=== PATIENT | female | born 1935 | race Caucasian/White ===

== ENCOUNTER 2016-09-14 16:15 | Observation (INO) ==
--- NOTE | 2016-09-14 17:07 | Emergency Department Note ---
Disposition Clinical Impression: Acute exacerbation of chronic obstructive pulmonary disease (COPD) Disposition: Admitted As Inpatient Condition: Good General Adult HPI - General Chief complaint: ED Shortness of Breath/Dyspnea Stated complaint: CARIDAD Time Seen by Provider: 09/14/16 17:01 Source: patient Limitations: no limitations - History of Present Illness Pain Scale: 0 - Related Data Home Medications Medication Instructions Recorded Confirmed Acetaminophen [Tylenol Arthritis] 1,300 mg PO HS 09/14/16 09/14/16 Aspirin 81 mg PO DAILY 09/14/16 09/14/16 Cyanocobalamin (Vitamin B-12) 100 mcg PO DAILY 09/14/16 09/14/16 [Vitamin B-12] Diltiazem HCl [Diltiazem 24Hr Cd] 240 mg PO DAILY 09/14/16 09/14/16 Fluticasone Propionate Nasal 50 mcg NS BID 09/14/16 09/14/16 [Flonase] Ginseng 100 mg PO DAILY 09/14/16 09/14/16 Isosorbide MONOnitrate (24 HR) 60 mg PO DAILY 09/14/16 09/14/16 [Imdur] LORazepam [Ativan] 0.5 mg PO BID PRN 09/14/16 09/14/16 Loratadine [Claritin] 10 mg PO DAILY 09/14/16 09/14/16 Meloxicam [Mobic] 7.5 mg PO DAILY 09/14/16 09/14/16 Metoprolol XL (24 HR) Succ [Toprol 50 mg PO DAILY 09/14/16 09/14/16 XL] Nitroglycerin 0.4 mg SL Q5MIN PRN 09/14/16 09/14/16 Omeprazole [PriLOSEC] 20 mg PO DAILY 09/14/16 09/14/16 Oxybutynin Chloride [Ditropan Xl] 10 mg PO DAILY 09/14/16 09/14/16 Saline Nasal [place] [[place] Nasal 2 spray NS BID 09/14/16 09/14/16 [place]] Triamterene/HCTZ 37.5/25mg 1 each PO DAILY 09/14/16 09/14/16 [Dyazide] Allergies Allergy/AdvReac Type Severity Reaction Status Date / Time No Known Allergies Allergy Verified 09/14/16 16:17 Past Medical History - Past Medical History Medical history: Reports: coronary artery disease, hypertension, myocardial infarction Psychiatric history: Reports: no psych history - Social History Smoking Status: Former smoker Alcohol use: Reports: none Drug use: Reports: none Physical Exam - General Limitations: no limitations General appearance: alert, in no apparent distress Course Vital Signs Temperature 97.8 F 09/14/16 16:17 Pulse Rate 92 09/14/16 16:17 Respiratory Rate 15 09/14/16 16:17 Blood Pressure 226/102 09/14/16 16:17 O2 Sat by Pulse Oximetry 94 L 09/14/16 16:17 Temperature 98.3 F 09/14/16 20:27 Pulse Rate 91 09/14/16 20:27 Respiratory Rate 16 09/14/16 20:27 Blood Pressure 177/89 09/14/16 20:27 O2 Sat by Pulse Oximetry 94 L 09/14/16 20:27 Oxygen Delivery Oxygen Delivery Nasal Cannula Medical Decision Making - Lab Data Result diagrams: 09/14/16 18:21 09/14/16 18:21 Lab Results 09/14/16 09/14/16 09/14/16 Range/Units 18:21 18:21 18:21 WBC 13.6 H (4.3-11.1) K/mcL RBC 4.66 (3.82-4.97) M/mcL Hgb 13.6 (11.5-15.4) g/dL Hct 41.1 (35.3-44.9) % MCV 88.2 (83.0-100.0) fL MCH 29.2 (28.0-33.3) pg MCHC 33.1 (31.6-35.5) g/dL RDW 13.0 (11.5-14.5) % Plt Count 291 (140-400) K/mcL MPV 9.6 (9.4-12.4) fL Immature Gran % 0.6 (0-4) % Seg Neutrophils % 68.8 % Lymphocytes % 25.6 % Monocytes % 4.2 % Eosinophils % 0.4 % Basophils % 0.4 % Neutrophils # 9.4 H (1.6-8.9) K/mcL Lymphocytes # 3.5 (0.6-4.6) K/mcL Monocytes # 0.6 (0.0-1.3) K/mcL Eosinophils # 0.1 (0.0-0.6) K/mcL Basophils # 0.1 (0.0-0.2) K/mcL Sodium 137 (136-145) mEq/L Potassium 3.4 L (3.5-4.5) mEq/L Chloride 97 L (98-109) mEq/L Carbon Dioxide 27 (19-29) mEq/L BUN 19 (7-20) mg/dL Creatinine 0.82 (0.57-1.11) mg/dL Est GFR ( Amer) > 60 (> 60) Est GFR (Non-Af Amer) > 60 (> 60) BUN/Creatinine Ratio 23 (6-26) Glucose 110 H (70-99) mg/dL Calculated Osmolality 287 (280-300) Calcium 10.0 (8.6-10.8) mg/dL Troponin I (0-0.03) ng/mL B-Natriuretic Peptide 186 H (0-100) pg/mL 09/14/16 Range/Units 18:24 WBC (4.3-11.1) K/mcL RBC (3.82-4.97) M/mcL Hgb (11.5-15.4) g/dL Hct (35.3-44.9) % MCV (83.0-100.0) fL MCH (28.0-33.3) pg MCHC (31.6-35.5) g/dL RDW (11.5-14.5) % Plt Count (140-400) K/mcL MPV (9.4-12.4) fL Immature Gran % (0-4) % Seg Neutrophils % % Lymphocytes % % Monocytes % % Eosinophils % % Basophils % % Neutrophils # (1.6-8.9) K/mcL Lymphocytes # (0.6-4.6) K/mcL Monocytes # (0.0-1.3) K/mcL Eosinophils # (0.0-0.6) K/mcL Basophils # (0.0-0.2) K/mcL Sodium (136-145) mEq/L Potassium (3.5-4.5) mEq/L Chloride (98-109) mEq/L Carbon Dioxide (19-29) mEq/L BUN (7-20) mg/dL Creatinine (0.57-1.11) mg/dL Est GFR ( Amer) (> 60) Est GFR (Non-Af Amer) (> 60) BUN/Creatinine Ratio (6-26) Glucose (70-99) mg/dL Calculated Osmolality (280-300) Calcium (8.6-10.8) mg/dL Troponin I 0.02 (0-0.03) ng/mL B-Natriuretic Peptide (0-100) pg/mL Attestation Statement - Attestation Attestation: I examined this patient and my medical decision-making was reviewed with the [facility]/PA/Advanced Practice Nurse/Resident Physician. I agree with the documented findings, disposition and treatment plan as described except to the extent set forth below. [id number] time provided Patient complains of dyspnea. Chest congestion audible on exam. She does admit to a cough. Pulse ox 85% on room air. Plan of care and management discussed by me with the resident physician
[2016-09-14] MEDS ORDERED: Ipratropium/Albuterol Neb 3 ML IH ONE (17:13)
--- NOTE | 2016-09-14 17:51 | Emergency Department Note ---
Disposition Clinical Impression: Acute exacerbation of chronic obstructive pulmonary disease (COPD) Disposition: Admitted As Inpatient Condition: Good SOB HPI - General Chief Complaint: ED Shortness of Breath/Dyspnea Stated Complaint: CARIDAD Time Seen by Provider: 09/14/16 17:01 Source: patient Limitations: no limitations Nursing Notes Reviewed: Yes Vital Signs Reviewed: Yes - History of Present Illness Ms. Mendiola, an 81yo female, presents from home by POV with chief complaint difficulty breathing. Onset in June and persistent. Patient states that she has been diagnosed with a viral upper restaurant infection, bronchitis, sinusitis and managed accordingly with no improvement in her symptoms. Patient denies formal history of COPD or asthma. Remote history of smoking tobacco stating that she quit 20 years ago. 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 Denies use of supplemental oxygen, at home nebulizers, or at home inhalers. PMH: Hypertension. Unknown status of CHF. Denies history of COPD. Admits: Persistent cough, difficulty breathing. Denies: Fever, chills, nausea, vomiting, chest pain, palpitations, abdominal pain, headache, generalized or focal weakness/numbness/tingling. - Related Data Home Medications Medication Instructions Recorded Confirmed Acetaminophen [Tylenol Arthritis] 1,300 mg PO HS 09/14/16 09/14/16 Aspirin 81 mg PO DAILY 09/14/16 09/14/16 Cyanocobalamin (Vitamin B-12) 100 mcg PO DAILY 09/14/16 09/14/16 [Vitamin B-12] Diltiazem HCl [Diltiazem 24Hr Cd] 240 mg PO DAILY 09/14/16 09/14/16 Fluticasone Propionate Nasal 50 mcg NS BID 09/14/16 09/14/16 [Flonase] Ginseng 100 mg PO DAILY 09/14/16 09/14/16 Isosorbide MONOnitrate (24 HR) 60 mg PO DAILY 09/14/16 09/14/16 [Imdur] LORazepam [Ativan] 0.5 mg PO BID PRN 09/14/16 09/14/16 Loratadine [Claritin] 10 mg PO DAILY 09/14/16 09/14/16 Meloxicam [Mobic] 7.5 mg PO DAILY 09/14/16 09/14/16 Metoprolol XL (24 HR) Succ [Toprol 50 mg PO DAILY 09/14/16 09/14/16 XL] Nitroglycerin 0.4 mg SL Q5MIN PRN 09/14/16 09/14/16 Omeprazole [PriLOSEC] 20 mg PO DAILY 09/14/16 09/14/16 Oxybutynin Chloride [Ditropan Xl] 10 mg PO DAILY 09/14/16 09/14/16 Saline Nasal [place] [[place] Nasal 2 spray NS BID 09/14/16 09/14/16 [place]] Triamterene/HCTZ 37.5/25mg 1 each PO DAILY 09/14/16 09/14/16 [Dyazide] Allergies Allergy/AdvReac Type Severity Reaction Status Date / Time No Known Allergies Allergy Verified 09/14/16 16:17 All systems ED: reviewed and negative except as stated. (as per history of present illness) Past Medical History - Past Medical History Medical history: Reports: coronary artery disease, hypertension, myocardial infarction Psychiatric history: Reports: no psych history - Social History Smoking Status: Former smoker Alcohol use: Reports: none Drug use: Reports: none Physical Exam General: Patient is alert, oriented, and in no acute distress. HEENT: No facial asymmetry. Head is normocephalic and atraumatic. Trachea midline. Cardiovascular: Heart regular rate and rhythm without clicks, rubs, gallops, or murmurs. No JVD. PMI nondisplaced. Respiratory: Symmetric chest rise with poor respiratory effort. Bilateral breath sounds have diffuse rhonchi bilaterally from apex to base in posterior wagner. Abdomen: Bowel sounds present normoactive x-4 quadrants. Abdomen is soft, nondistended, and nontender. Psych: Patient's affect is appropriate for situation. - General Limitations: no limitations General appearance: alert, in no apparent distress Course Course Narrative: On auscultation, patient's lung sounds are coarse with crackles. Concern is for pulmonary edema versus pneumonia versus exacerbation of COPD. Chart check does not show any recent cardiology reports. 18:38 Patient remains hypertensive. On initial interview, she was hypertensive and asymptomatic. She now complains of headache. Will give IV dose labetalol 10 mg. Patient's lab work and imaging has returned. Imaging is not concerning for pneumonia. BNP is very mildly elevated at 186. Patient has a mild leukocytosis. After discussing with the patient and the daughter bedside, the patient is proven to us that she is unable to manage an outpatient basis as her symptoms have unresolved and worsening for the past 3 months. We will page the hospitalist for admission for a new diagnosis of COPD for which the patient is currently in an acute exacerbation. Patient is now on 4 L of oxygen satting at 94-95%. On 3 L nasal cannula she was 89-90%. Note: At baseline, patient requires no supplemental oxygen. 19:[address] Alcala, hospitalist [place] [facility]. He agrees to accept the patient. Admitting diagnosis: AE COPD. COPD has not been previously diagnosed in this patinent. Vital Signs Temperature 97.8 F 09/14/16 16:17 Pulse Rate 92 09/14/16 16:17 Respiratory Rate 15 09/14/16 16:17 Blood Pressure 226/102 09/14/16 16:17 O2 Sat by Pulse Oximetry 94 L 09/14/16 16:17 Temperature 97.8 F 09/14/16 16:17 Pulse Rate 91 09/14/16 18:56 Respiratory Rate 22 09/14/16 20:10 Blood Pressure 184/86 09/14/16 20:10 O2 Sat by Pulse Oximetry 93 L 09/14/16 18:56 Oxygen Delivery Oxygen Delivery Nasal Cannula Shortness of Breath/Dyspnea - Lab Data Result diagrams: 09/14/16 18:21 09/14/16 18:21 Lab Results 09/14/16 09/14/16 09/14/16 Range/Units 18:21 18:21 18:21 WBC 13.6 H (4.3-11.1) K/mcL RBC 4.66 (3.82-4.97) M/mcL Hgb 13.6 (11.5-15.4) g/dL Hct 41.1 (35.3-44.9) % MCV 88.2 (83.0-100.0) fL MCH 29.2 (28.0-33.3) pg MCHC 33.1 (31.6-35.5) g/dL RDW 13.0 (11.5-14.5) % Plt Count 291 (140-400) K/mcL MPV 9.6 (9.4-12.4) fL Immature Gran % 0.6 (0-4) % Seg Neutrophils % 68.8 % Lymphocytes % 25.6 % Monocytes % 4.2 % Eosinophils % 0.4 % Basophils % 0.4 % Neutrophils # 9.4 H (1.6-8.9) K/mcL Lymphocytes # 3.5 (0.6-4.6) K/mcL Monocytes # 0.6 (0.0-1.3) K/mcL Eosinophils # 0.1 (0.0-0.6) K/mcL Basophils # 0.1 (0.0-0.2) K/mcL Sodium 137 (136-145) mEq/L Potassium 3.4 L (3.5-4.5) mEq/L Chloride 97 L (98-109) mEq/L Carbon Dioxide 27 (19-29) mEq/L BUN 19 (7-20) mg/dL Creatinine 0.82 (0.57-1.11) mg/dL Est GFR ( Amer) > 60 (> 60) Est GFR (Non-Af Amer) > 60 (> 60) BUN/Creatinine Ratio 23 (6-26) Glucose 110 H (70-99) mg/dL Calculated Osmolality 287 (280-300) Calcium 10.0 (8.6-10.8) mg/dL Troponin I (0-0.03) ng/mL B-Natriuretic Peptide 186 H (0-100) pg/mL 09/14/16 Range/Units 18:24 WBC (4.3-11.1) K/mcL RBC (3.82-4.97) M/mcL Hgb (11.5-15.4) g/dL Hct (35.3-44.9) % MCV (83.0-100.0) fL MCH (28.0-33.3) pg MCHC (31.6-35.5) g/dL RDW (11.5-14.5) % Plt Count (140-400) K/mcL MPV (9.4-12.4) fL Immature Gran % (0-4) % Seg Neutrophils % % Lymphocytes % % Monocytes % % Eosinophils % % Basophils % % Neutrophils # (1.6-8.9) K/mcL Lymphocytes # (0.6-4.6) K/mcL Monocytes # (0.0-1.3) K/mcL Eosinophils # (0.0-0.6) K/mcL Basophils # (0.0-0.2) K/mcL Sodium (136-145) mEq/L Potassium (3.5-4.5) mEq/L Chloride (98-109) mEq/L Carbon Dioxide (19-29) mEq/L BUN (7-20) mg/dL Creatinine (0.57-1.11) mg/dL Est GFR ( Amer) (> 60) Est GFR (Non-Af Amer) (> 60) BUN/Creatinine Ratio (6-26) Glucose (70-99) mg/dL Calculated Osmolality (280-300) Calcium (8.6-10.8) mg/dL Troponin I 0.02 (0-0.03) ng/mL B-Natriuretic Peptide (0-100) pg/mL - EKG Data EKG attestation: Yes I reviewed and interpreted this EKG. EKG results narrative: EKG dated 09/14/16 at 17:41 shows sinus rhythm with a rate of 79. Nonspecific ST -T changes. Normal intervals. Normal axis. Rare PVCs. Compared to previous EKG dated 08/15/2014 showing sinus bradycardia; no acute ischemic changes comparison. EKG gated 2016 at 18:04 shows sinus rhythm with occasional PVCs with subsequent compensatory positive. Rate of 88. Normal intervals. Normal axis. PVCs are new finding is a not evident on previous EKG dated 08/15/2014.
[2016-09-14] MEDS ORDERED: *HR* Labetalol 20 MG/4 ML SYRINGE IVP ONE (18:37)
[2016-09-14 18:41] LABS: Basophils # 0.1 K/mcL (0.0-0.2); Basophils % 0.4 %; Eosinophils # 0.1 K/mcL (0.0-0.6); Eosinophils % 0.4 %; Hematocrit 41.1 % (35.3-44.9); Hemoglobin 13.6 g/dL (11.5-15.4); Immature Granulocytes % 0.6 % (0-4); Lymphocytes # 3.5 K/mcL (0.6-4.6); Lymphocytes % 25.6 %; Mean Corpuscular HGB Conc 33.1 g/dL (31.6-35.5); Mean Corpuscular Hemoglobin 29.2 pg (28.0-33.3); Mean Corpuscular Volume 88.2 fL (83.0-100.0); Mean Platelet Volume 9.6 fL (9.4-12.4); Monocytes # 0.6 K/mcL (0.0-1.3); Monocytes % 4.2 %; Neutrophils # 9.4 K/mcL (1.6-8.9); Platelet Count 291 K/mcL (140-400); Red Blood Count 4.66 M/mcL (3.82-4.97); Segmented Neutrophils % 68.8 %
[2016-09-14 18:50] LABS: BUN/Creatinine Ratio 23 (6-26); Blood Urea Nitrogen 19 mg/dL (7-20); Carbon Dioxide 27 mEq/L (19-29); Chloride 97 mEq/L (98-109); Glucose 110 mg/dL (70-99); Osmolality,Calculated 287 (280-300); Potassium 3.4 mEq/L (3.5-4.5); Sodium 137 mEq/L (136-145); eGFR For African Americans > 60 (> 60); eGFR For Non-African Americans > 60 (> 60)
[2016-09-14] MEDS ORDERED: Ondansetron 4 MG/2 ML VIAL IVP STA (18:56)
[2016-09-14] MEDS ORDERED: methylPREDNISolone 125 MG/2 ML VIAL IVP ONE (19:02)
[2016-09-14] MEDS: Isosorbide MONOnitrate (24 HR) 60 MG TAB.ER.24H PO ONE ×2 (20:18→21:26)
[2016-09-14] MEDS: Diltiazem CD (24hr) 240 MG CAPSULE PO ONE ×2 (20:18→21:27)
[2016-09-14] MEDS ORDERED: *HR* LORazepam 0.5 MG TABLET PO PRN (21:15)
[2016-09-14] MEDS ORDERED: Nitroglycerin 0.4 MG TAB.SUBL SL PRN (21:15)
[2016-09-14] MEDS ORDERED: Albuterol 2.5 MG/3 ML NEBULIZER IH PRN (21:17)
[2016-09-14] MEDS ORDERED: Pantoprazole 40 MG VIAL IVP STA (21:17)
[2016-09-14] MEDS ORDERED: Ondansetron 4 MG/2 ML VIAL IVP PRN (21:17)
[2016-09-14] MEDS ORDERED: *HR* Morphine 2 MG/ML SYRINGE IVP PRN (21:17)
[2016-09-14] MEDS ORDERED: Naloxone 0.4 MG/ML INJ IVP PRN (21:17)
[2016-09-14] MEDS ORDERED: *HR* OxyCODONE Immed Rel 5 MG TABLET PO PRN (21:17)
[2016-09-14] MEDS ORDERED: Azithromycin 500 MG in D5% in Water 250 ML IVPB SCH (22:00)
[2016-09-14 22:11] LABS: Magnesium 1.3 mg/dL (1.6-2.6); Phosphorous 2.7 mg/dL (2.3-4.7)
[2016-09-14] MEDS: 0.9 % Sodium Chloride w KCl 20 MEQ/1,000 ML MLS IVC SCH (22:55)
[2016-09-14] MEDS: Ipratropium/Albuterol Neb 3 ML IH SCH (23:32)
[2016-09-15] MEDS: MethylPREDNISolone 40 MG/ML VIAL IVP SCH ×3 (00:07→11:46)
[2016-09-15] MEDS: Ipratropium/Albuterol Neb 3 ML IH SCH ×4 (04:56→22:52)
[2016-09-15] MEDS: Acetylcysteine 10% 2 ML INHSOL IH SCH ×3 (04:56→22:52)
[2016-09-15 05:09] LABS: Hematocrit 35.5 % (35.3-44.9); Mean Corpuscular HGB Conc 33.8 g/dL (31.6-35.5); Mean Corpuscular Hemoglobin 29.9 pg (28.0-33.3); Mean Corpuscular Volume 88.5 fL (83.0-100.0); Platelet Count 268 K/mcL (140-400); Red Blood Count 4.01 M/mcL (3.82-4.97)
[2016-09-15 05:24] LABS: INR 1.1; Prothrombin Time 11.8 Seconds (9.4-12.1)
[2016-09-15 05:31] LABS: Alanine Aminotransferase 16 Units/L (0-55); Albumin 3.3 g/dL (3.5-5.0); Albumin/Globulin Ratio 0.9 (1.1-2.2); Alkaline Phosphatase 78 Units/L (38-126); Aspartate Amino Transferase 18 Units/L (5-34); BUN/Creatinine Ratio 20 (6-26); Bilirubin,Total 0.5 mg/dL (0.2-1.2); Blood Urea Nitrogen 20 mg/dL (7-20); Calcium 9.6 mg/dL (8.6-10.8); Carbon Dioxide 26 mEq/L (19-29); Chloride 94 mEq/L (98-109); Chol/HDL Ratio 3.5 (0-4.9); Cholesterol 164 mg/dL (< 200); Globulin 3.5 g/dL (2.4-3.5); Glucose 183 mg/dL (70-99); HDL Cholesterol 47 mg/dL (40-59); LDL Cholesterol,Calculated 100 mg/dL (0-99); Osmolality,Calculated 281 (280-300); Potassium 3.4 mEq/L (3.5-4.5); Sodium 132 mEq/L (136-145); Total Protein 6.8 g/dL (6.0-8.3); Triglycerides 87 mg/dL (< 150); eGFR For African Americans > 60 (> 60); eGFR For Non-African Americans 54 (> 60)
--- NOTE | 2016-09-15 08:14 | Internal Med History&Physical ---
Date of Encounter: 09/14/16 Time of Encounter: 21:00 Assessment and Plan (1) Acute on chronic respiratory failure with hypoxia Status: Acute . (2) Acute exacerbation of chronic obstructive pulmonary disease (COPD) Status: Acute . (3) SIRS (systemic inflammatory response syndrome) Status: Acute . Internal Medicine - H&P: HPI Chief complaint: Difficulty breathing Admitted From: Emergency Dept Plans for Post Hospital Care: Home History of present illness: Ms. Mendiola is a 81 year old female with history significant for DJD/ osteoarthritis, osteopenia, hypertension, dyslipidemia, GERD, diastolic CHF/ LVEF 65%, CAD/AMI, pulm HTN, TO, allergic rhinitis, COPD, obesity, former smoker. The patient was visited and interviewed and examined. Patient is admitted to [facility]. The emergency department when she presents with reports of persisting difficulty in breathing. Onset of symptoms began in June and seemed to persist point forward. She had been diagnosed with a viral upper respiratory tract infection, bronchitis, sinusitis, etc. and in spite of management provided for each diagnosis no internal improvement in her symptoms was achieved. She does not possess to her knowledge of formal diagnosis of COPD or asthma. She has a very remote history of smoking tobacco which she discontinued 20 years ago. She does have seasonal allergies. She has lived in a smoking household. She denies any overt fevers chills night sweats nausea vomiting diarrhea chest pain palpitations and headache focal weakness or numbness paresthesias or rash. Findings in the ED: Temperature 97.8 pulse 92 respirations 16-22 BP 184-226/86- 102. O2 saturation 94% on room air. WBC 13.6 hemoglobin 13.6 platelets 291, 000. Differential showed an increase in neutrophils. Metabolic panel showed a potassium of 3.4 chloride 97. BUN 19 creatinine 0.8. Glucose 110 osmolality 297. Troponin 0.0 BNP 186. Chest x-ray demonstrates cardiomegaly and COPD. Increased pulmonary vascular congestion centrally. Suggestive of pulmonary edema. EKG showed sinus rhythm. Rate 79. Nonspecific ST-T wave changes. Rare PVC. No acute ischemic changes. Preliminary impression suggests acute/subacute bronchitis-bronchiolitis. Protracted course may portend to interstitial lung disease/interstitial pneumonitis. Seasonal allergens such as mold and mildew may have aggravated waxing and waning course she describes. Not currently on an POOJA inhibitor as an added feature of induced cough and congestion. Given x-ray suggestion of cardiomegaly and COPD, issues she is not clearly aware exist further investigation will be pursued. Systemic inflammatory response syndrome criteria are met at the time of presentation. Modest metabolic and electrolyte derangements also are apparent. As his chronic significant accelerated blood pressure/hypertensive urgency. Likely reactive. Given cardiomegaly further assessment of valvular status and systolic function will be investigated. The patient is at risk for further acute clinical decline and morbid given this presenting chief complaint, findings and comorbid conditions. Workup and treatment will proceed comprehensibly. Cumulative laboratory and radiographic data base was reviewed, considered and discussed. Pertinent ancillary medical records including ECW and PCI documentation was reviewed and considered. Given the patient's presenting concerns, past medical history, clinical findings and symptoms, she is admitted at this time will undergo further evaluation and disposition. Orders were written as per [employer] physician computerized mill mill recorder system.......................................................................... .................... Consultative opinions will be sought as clinical circumstances justify. Pain management needs will be addressed. Laboratory and radiographic data base will be updated as appropriate. Studies include: Cultures blood urine and sputum, cardiac injury panel, BNP, metabolic and hematologic panel, mag, phos, ion calcium, thyroid panel, lipid profile, A1c , C-pep, CRP sed rate, respiratory infection profile, respiratory virus panel, L and streptococcal pneumonia urine antigen, UA, blood gas, lactic acid, serologies, etc. Precautions: Aspiration, fall, delirium protocol/surveillance initiated. Telemetry with continuous hemodynamic monitoring and pulse oximetry initiated. Empiric antibody coverage: Intravenous Rocephin and azithromycin pending culture data. Special studies: CT/CTA chest, chest x-ray, telemetry, EKG, echocardiogram. Consider Lexiscan myocardial perfusion NM stress test pending review of cumulative test results. Consider complete pulmonary function testing and DLCO assessment. Pulmonary toilet: Incentive spirometry, aerosol bronchodilator, mucolytic, antitussive, supplemental oxygen. Corticosteroid therapy. CPAP/BiPAP supplemental oxygen delivery. Aerosol Mucomyst therapy. Acute heart failure protocol/surveillance initiated. 4438-4665 mL total fluid restriction per 24 hours. No added salt dietary restraint. Fluid and electrolyte repletion efforts will proceed. Careful attention to fluid balance and renal recovery will be emphasized. Avoidance of nephrotoxic exposure and adverse drug drug interaction in the setting of impaired renal function will be monitored closely. Acute coronary syndrome protocol/surveillance initiated. DVT and PUD prophylaxis initiated: PPI therapy, intermittent pneumatic cuffs. Subcutaneous heparin. Early ambulation will be encouraged. Immunization updates recommended. Influenza and pneumococcal vaccinations as part of ongoing preventative healthcare recommendations strongly recommended. Smoking cessation counseling briefly addressed. Patient is a former smoker. Advanced care directive discussion briefly addressed. Patient does not declare any healthcare restrictions at this time. Cardiovascular risk appraisal and cardiovascular risk reduction efforts will be emphasized. Physical /occupational therapy may be consulted to evaluate/assess patient's functional capacity and progress mobility if her circumstances permit. Nutrition/dietary education counseling may be considered as circumstances justify. Outpatient medication schedules will be reviewed, confirmed and facilitated as appropriate. Reconciliation of home treatments including adjustments, substitutions and reintroduction into the treatment regimen will address necessary maintenance therapies for chronic pre-existing medical conditions. Plan of care has been reviewed and discussed in detail with the patient. Questions addressed. Hospital course dictated by clinical findings, treatment response and potential consultative interventions. Patient is at risk for further acute clinical decline due to her advanced age, chief complaints and comorbid conditions. Condition is serious. Prognosis is cautiously optimistic. CODE STATUS is full. Past Med Surg Social Fam HX - Past Medical History Source: old records reviewed Medical history: arthritis, asthma, COPD, coronary artery disease, GERD, hyperlipidemia, hypertension, myocardial infarction, osteoporosis, other Psychiatric history: no psych history - Past Surgical History Surgical History: cholecystectomy, hysterectomy, knee replacement, orthopedic, other (Left total shoulder replacement. Left carpal tunnel surgery. Right foot surgery.), other - Social History Smoking Status: Former smoker Smokeless Tobacco Status: No Alcohol use: none Drug use: none Occupational status: retired Current living situation: With Family Activity Level: Independent ambulation, Mostly sedentary Recent Out of Country Travel Within the Last 8 Weeks: No Exposure or Possible Exposure to Illness During Travel: No - Family History Brother Hx Family Cardiac Disorders: Yes (HTN) Hx Family Endocrine Disorder: Yes (diabetes) Internal Medicine - H&P: Meds Acetaminophen [Tylenol Arthritis] 1,300 mg PO HS 09/14/16 [History] Aspirin 81 mg PO DAILY 09/14/16 [History] Cyanocobalamin (Vitamin B-12) [Vitamin B-12] 100 mcg PO DAILY 09/14/16 [History] Diltiazem HCl [Diltiazem 24Hr Cd] 240 mg PO DAILY 09/14/16 [History] Fluticasone Propionate Nasal [Flonase] 50 mcg NS BID 09/14/16 [History] Ginseng 100 mg PO DAILY 09/14/16 [History] Isosorbide MONOnitrate (24 HR) [Imdur] 60 mg PO DAILY 09/14/16 [History] LORazepam [Ativan] 0.5 mg PO BID PRN 09/14/16 [History] Loratadine [Claritin] 10 mg PO DAILY 09/14/16 [History] Meloxicam [Mobic] 7.5 mg PO DAILY 09/14/16 [History] Metoprolol XL (24 HR) Succ [Toprol Xl] 50 mg PO DAILY 09/14/16 [History] Nitroglycerin 0.4 mg SL Q5MIN PRN 09/14/16 [History] Omeprazole [PriLOSEC] 20 mg PO DAILY 09/14/16 [History] Oxybutynin Chloride [Ditropan Xl] 10 mg PO DAILY 09/14/16 [History] Saline Nasal [place] [[place] Nasal [place]] 2 spray NS BID 09/14/16 [History] Triamterene/HCTZ 37.5/25mg [Dyazide] 1 each PO DAILY 09/14/16 [History] Amoxicillin 875 mg PO BID 5 Days 09/16/16 [Rx] Furosemide [Lasix] 20 mg PO DAILY #30 tablet 09/16/16 [Rx] Potassium Chloride [K-Tab ER] 8 meq PO DAILY #30 tablet.er 09/16/16 [Rx] PredniSONE 10 mg PO DAILY 12 Days 09/16/16 [Rx] Allergies No Known Allergies Allergy (Verified 09/14/16 16:17) All Systems PM: A 10-system review of systems was performed and is negative for pertinent findings except as documented above in the HPI. - Constitutional Constitutional: as per HPI, malaise, no chills, no fever(s), no night sweats - EENT Eyes: as per HPI, no change in vision, no discharge, no pain, no photophobia Ears: as per HPI, no ear discharge, no ear pain, no tinnitus Nose, mouth and throat: as per HPI, no dysphagia, no nasal discharge, no neck pain, no sore throat - Cardiovascular Cardiovascular ROS IM: as per HPI, chest pain, no diaphoresis, no dyspnea, no lightheadedness, no palpitations, no syncope - Respiratory Respiratory: as per HPI, cough, dyspnea, dyspnea on exertion, wheezing, pain on inspiration, chest congestion, pain with cough, no excessive phlegm production - Gastrointestinal Gastrointestinal: as per HPI, no abdominal pain, no diarrhea, no hematemesis, no hematochezia, no melena, no nausea, no vomiting - Genitourinary Genitourinary: as per HPI, no change in urinary stream, no dysuria, no flank pain, no hematuria - Musculoskeletal Musculoskeletal ROS IM: as per HPI, no numbness, no tingling - Integumentary Integumentary IM: as per HPI, no rash, no unusual bruising - Neurological Neurological ROS: as per HPI, no confusion, no convulsions, no focal weakness, no numbness, no tingling, no tremor(s) - Psychiatric Psychiatric: as per HPI - Endocrine Endocrine IM: as per HPI - Hematologic/Lymphatic Hematologic/Lymphatic: as per HPI, no easy bruising - Allergic/Immunologic Allergic/Immunologic: as per HPI - Constitutional Vitals: Temp Pulse Resp BP Pulse Ox 97.9 F 93 16 144/65 92 L 09/15/16 07:34 09/15/16 07:34 09/15/16 07:34 09/15/16 07:34 09/15/16 07:34 General appearance: Present: cooperative, mild distress, A&O X 3, obese, answers questions appropriately - Head Head exam: Present: atraumatic, normocephalic - Eye Eye exam: Present: EOMI, PERRL, conjuntiva pink, sclera anicteric Pupils: Present: normal accommodation, PERRL - ENT ENT exam: Present: mucous membranes moist, normal oropharynx - Neck Neck exam general surgery: Present: supple, trachea midline. Absent: lymphadenopathy, tenderness, nuchal rigidity - Respiratory Respiratory exam: Present: accessory muscle use, chest wall tenderness, decreased breath sounds, respiratory distress, rhonchi, wheezes. Absent: CTAB, rales - Cardiovascular Cardiovascular exam: Present: distant heart sounds, RRR, +S1, +S2. Absent: diastolic murmur, gallop, rubs, systolic murmur - GI/Abdominal GI/Abdominal exam: Present: normal bowel sounds, soft, no peritoneal signs. Absent: distended, tenderness - Extremities Exam Extremities exam: Present: full ROM, warm, radial pulses palpable and symetrical. Absent: calf tenderness, cyanotic, pedal edema - Neurological Exam Neurological exam: Present: alert, CN II-XII intact, oriented X3, no focal deficits. Absent: pronater drift, facial droop, speech deficit - Psychiatric Psychiatric exam: Present: normal affect, normal mood - Skin Skin exam: Present: dry, intact, warm. Absent: petechiae, rash, urticaria, vesicles Internal Med - H&P Results - Labs CBC & Chem 7: 09/16/16 04:21 09/16/16 04:21 Labs: Short CBC 09/15/16 Range/Units 04:35 WBC 22.3 H D (4.3-11.1) K/mcL Hgb 12.0 D (11.5-15.4) g/dL Hct 35.5 (35.3-44.9) % Plt Count 268 (140-400) K/mcL BMP 09/15/16 04:35 Sodium 132 L Potassium 3.4 L Chloride 94 L Carbon Dioxide 26 BUN 20 Creatinine 0.99 Glucose 183 H Calcium 9.6 Cardiac Enzymes 09/14/16 09/15/16 Range/Units 21:44 04:35 Troponin I 0.02 0.02 (0-0.03) ng/mL Liver Function 09/15/16 Range/Units 04:35 Total Bilirubin 0.5 (0.2-1.2) mg/dL AST 18 (5-34) Units/L ALT 16 (0-55) Units/L Alkaline Phosphatase 78 (38-126) Units/L Albumin 3.3 L (3.5-5.0) g/dL - Impressions Vital Signs Temp Pulse Resp BP Pulse Ox 09/15/16 07:34 97.9 F 93 16 144/65 92 L 09/15/16 04:57 18 85 L 09/15/16 04:23 97.8 F 61 18 139/71 96 09/14/16 23:35 18 96 09/14/16 23:27 98.8 F 89 15 120/66 95 09/14/16 20:27 98.3 F 91 16 177/89 94 L 09/14/16 20:10 22 184/86 09/14/16 18:56 91 22 208/96 93 L 09/14/16 18:12 69 20 217/92 96 09/14/16 18:02 18 208/96 94 L 09/14/16 17:55 74 22 94 L 09/14/16 17:38 92 L 09/14/16 16:17 97.8 F 92 15 226/102 94 L Intake and Output 09/14/16 09/15/16 09/15/16 23:59 07:59 15:59 Intake Total 450 / 450 1050 / 1050 Output Total 200 / 200 250 / 250 Balance 250 / 250 800 / 800 Intake: IV Fluids 250 / 250 Zithromax 500 mg In 250 / 250 Dextrose 5% 250 ML @ 252 mls/hr IVPB Q24H [facility] Rx#: [id number] Oral 200 / 200 1050 / 1050 Output: Urine 200 / 200 250 / 250 Other: # Voids 1 Weight 74.389 kg 74.389 kg Patient Weight 09/15/16 23:59 Weight 74.389 kg Short CBC 09/15/16 09/14/16 Range/Units 04:35 18:21 WBC 22.3 H D 13.6 H (4.3-11.1) K/mcL Hgb 12.0 D 13.6 (11.5-15.4) g/dL Hct 35.5 41.1 (35.3-44.9) % Plt Count 268 291 (140-400) K/mcL Neutrophils # 9.4 H (1.6-8.9) K/mcL BMP 09/15/16 09/14/16 Range/Units 04:35 18:21 Sodium 132 L 137 (136-145) mEq/L Potassium 3.4 L 3.4 L (3.5-4.5) mEq/L Chloride 94 L 97 L (98-109) mEq/L Carbon Dioxide 26 27 (19-29) mEq/L BUN 20 19 (7-20) mg/dL Creatinine 0.99 0.82 (0.57-1.11) mg/dL Glucose 183 H 110 H (70-99) mg/dL Calcium 9.6 10.0 (8.6-10.8) mg/dL Cardiac Enzymes 09/15/16 09/14/16 09/14/16 Range/Units 04:35 21:44 18:24 Troponin I 0.02 0.02 0.02 (0-0.03) ng/mL Liver Function 09/15/16 Range/Units 04:35 Total Bilirubin 0.5 (0.2-1.2) mg/dL AST 18 (5-34) Units/L ALT 16 (0-55) Units/L Alkaline Phosphatase 78 (38-126) Units/L Albumin 3.3 L (3.5-5.0) g/dL Allergies Allergy/AdvReac Type Severity Reaction Status Date / Time No Known Allergies Allergy Verified 09/14/16 16:17 Laboratory Results WBC 22.3 K/mcL (4.3-11.1) H D 09/15/16 04:35 RBC 4.01 M/mcL (3.82-4.97) 09/15/16 04:35 Hgb 12.0 g/dL (11.5-15.4) D 09/15/16 04:35 Hct 35.5 % (35.3-44.9) 09/15/16 04:35 MCV 88.5 fL (83.0-100.0) 09/15/16 04:35 MCH 29.9 pg (28.0-33.3) 09/15/16 04:35 MCHC 33.8 g/dL (31.6-35.5) 09/15/16 04:35 RDW 13.0 % (11.5-14.5) 09/15/16 04:35 Plt Count 268 K/mcL (140-400) 09/15/16 04:35 MPV 10.0 fL (9.4-12.4) 09/15/16 04:35 Immature Gran % 0.6 % (0-4) 09/14/16 18:21 Seg Neutrophils % 68.8 % 09/14/16 18:21 Lymphocytes % 25.6 % 09/14/16 18:21 Monocytes % 4.2 % 09/14/16 18:21 Eosinophils % 0.4 % 09/14/16 18:21 Basophils % 0.4 % 09/14/16 18:21 Neutrophils # 9.4 K/mcL (1.6-8.9) H 09/14/16 18:21 Lymphocytes # 3.5 K/mcL (0.6-4.6) 09/14/16 18:21 Monocytes # 0.6 K/mcL (0.0-1.3) 09/14/16 18:21 Eosinophils # 0.1 K/mcL (0.0-0.6) 09/14/16 18:21 Basophils # 0.1 K/mcL (0.0-0.2) 09/14/16 18:21 PT 11.8 Seconds (9.4-12.1) 09/15/16 04:35 INR 1.1 09/15/16 04:35 APTT 27.0 Seconds (26.0-36.0) 09/15/16 04:35 Sodium 132 mEq/L (136-145) L 09/15/16 04:35 Potassium 3.4 mEq/L (3.5-4.5) L 09/15/16 04:35 Chloride 94 mEq/L (98-109) L 09/15/16 04:35 Carbon Dioxide 26 mEq/L (19-29) 09/15/16 04:35 BUN 20 mg/dL (7-20) 09/15/16 04:35 Creatinine 0.99 mg/dL (0.57-1.11) 09/15/16 04:35 Est GFR ( Amer) > 60 (> 60) 09/15/16 04:35 Est GFR (Non-Af Amer) 54 (> 60) L 09/15/16 04:35 BUN/Creatinine Ratio 20 (6-26) 09/15/16 04:35 Glucose 183 mg/dL (70-99) H 09/15/16 04:35 Calculated Osmolality 281 (280-300) 09/15/16 04:35 Calcium 9.6 mg/dL (8.6-10.8) 09/15/16 04:35 Phosphorus 2.7 mg/dL (2.3-4.7) 09/14/16 21:44 Magnesium 1.3 mg/dL (1.6-2.6) L 09/14/16 21:44 Total Bilirubin 0.5 mg/dL (0.2-1.2) 09/15/16 04:35 AST 18 Units/L (5-34) 09/15/16 04:35 ALT 16 Units/L (0-55) 09/15/16 04:35 Alkaline Phosphatase 78 Units/L (38-126) 09/15/16 04:35 Troponin I 0.02 ng/mL (0-0.03) 09/15/16 04:35 B-Natriuretic Peptide 488 pg/mL (0-100) H 09/15/16 04:35 Serum Total Protein 6.8 g/dL (6.0-8.3) 09/15/16 04:35 Albumin 3.3 g/dL (3.5-5.0) L 09/15/16 04:35 Globulin 3.5 g/dL (2.4-3.5) 09/15/16 04:35 Albumin/Globulin Ratio 0.9 (1.1-2.2) L 09/15/16 04:35 Triglycerides 87 mg/dL (< 150) 09/15/16 04:35 Cholesterol 164 mg/dL (< 200) 09/15/16 04:35 LDL Cholesterol, Calc 100 mg/dL (0-99) H 09/15/16 04:35 VLDL Cholesterol, Calc 17 mg/dL (< 31) 09/15/16 04:35 HDL Cholesterol 47 mg/dL (40-59) 09/15/16 04:35 Cholesterol/HDL Ratio 3.5 (0-4.9) 09/15/16 04:35 Impressions Chest X-Ray 09/14/16 17:13 IMPRESSION: Chronic changes of cardiomegaly and COPD. Slightly increased pulmonary vascular congestion centrally from prior exam may indicate mild pulmonary edema. D/ / Hamzah Alvarez MD / Hamzah Alvarez MD Interpreting Provider: Hamzah Alvarez MD
[2016-09-15] MEDS: Aspirin 81 MG TAB.CHEW PO SCH (08:55)
[2016-09-15] MEDS: Saline Nasal Spray 44 ML BOTTLE NS SCH ×2 (08:55→20:34)
[2016-09-15] MEDS: Diltiazem CD (24hr) 240 MG CAPSULE PO SCH (08:56)
[2016-09-15] MEDS: Loratadine 10 MG TABLET PO SCH (08:56)
[2016-09-15] MEDS: Isosorbide MONOnitrate (24 HR) 60 MG TAB.ER.24H PO SCH (08:57)
[2016-09-15] MEDS: Fluticasone Propionate Nasal 50 MCG/SPRAY BOTTLE NS SCH ×2 (08:57→20:33)
[2016-09-15] MEDS ORDERED: Metoprolol XL (24 HR) Succ 50 MG TAB.ER.24H PO SCH ×2 (09:00→21:00)
--- NOTE | 2016-09-15 11:13 | Event Note ---
<Guillermo Brown - Last Filed: 09/15/16 10:18> Date of Encounter: 09/15/16 Time of Encounter: 10:18 Fanny Mendiola is an 81-year-old female with past medical history of hypertension , CAD with prior [place], hyperlipidemia, GERD, anxiety, osteoarthritis. She is a former smoker. Pt presented to the ED the evening of 09/14/16 for shortness of breath, cough, and congestion, quit 20 years ago. O2 sat = 85% on room air in the ED. She had been seen as an outpatient 08/12/16 for URI symptoms and treated with antihistamine, nasal saline, and Afrin. She returned 09/02/16 with continued cough, chest congestion, and dyspnea on exertion. EKG at that time was unchanged from prior EKGs. In ED, there was concern for pulmonary edema vs pneumonia vs COPD exacerbation (patient has no formal diagnosis of COPD). BNP mildly elevated at 186 and WBC count = 13.6. On 3 L O2 O2 sat was 89-90%, on 4 L = 94-95%. Chest x-ray showed chronic changes of cardiomegaly and COPD. Mild vascular congestion may indicate mild pulmonary edema. Assessment/Plan 1. Acute exacerbation of COPD -Dyspnea likely due to exacerbation of COPD -Mild pulmonary edema on CXR -Continue bronchodilator: duo nebs 4 times a day, -Continue Solu-Medrol 40 mg every 6 hours -Continue azithromycin, and ceftriaxone -O2 sat most recently 92% on 2 L nasal cannula 2. Hypertension -BP initially elevated to 226/102 in the ED -Continue Cardizem, metoprolol (Patient is on Cardizem 240 mg daily, Toprol 50 daily, Dyazide 37.5/25 daily at home) -Blood pressure has stabilized to 140s/60s 3. DVT prophylaxis <Mario Chapin - Last Filed: 09/15/16 12:15> Date of Encounter: 09/15/16 please read new progress note
--- NOTE | 2016-09-15 12:11 | Internal Med Progress Note ---
Date of Encounter: 09/15/16 Time of Encounter: 12:08 - Assessment and plan (1) CHF (congestive heart failure) Current Visit: Yes Status: Acute Assessment and plan: Acute hypoxic respiratory failure secondary to combination of acute pulmonary edema due to possible undiagnosed acute CHF exacerbation systolic versus diastolic with possible acute COPD exacerbation secondary to acute bronchitis viral versus bacterial Continue Rocephin and discontinue azithromycin Order respiratory viral panel Stop Solu-Medrol and continue prednisone Start Lasix IV, strict I's and O's and daily weight and check an echocardiogram Qualifiers: Congestive heart failure type: unspecified congestive heart failure type Congestive heart failure chronicity: acute Qualified Code(s): I50.9 - Heart failure, unspecified (2) Acute exacerbation of chronic obstructive pulmonary disease (COPD) Current Visit: Yes Status: Acute (3) Hypokalemia Current Visit: Yes Status: Acute Assessment and plan: Replete as needed (4) Pulmonary edema Current Visit: Yes Status: Acute Qualifiers: Chronicity: acute Qualified Code(s): J81.0 - Acute pulmonary edema (5) Bronchitis Current Visit: Yes Status: Acute (6) Hypoxia Current Visit: Yes Status: Acute (7) Leukocytosis Current Visit: Yes Status: Acute Assessment and plan: Likely secondary to bronchitis Qualifiers: Leukocytosis type: unspecified Qualified Code(s): D72.829 - Elevated white blood cell count, unspecified - Time Spent With Patient Greater than 35 minutes - Subjective Interval history: Still feeling short of breath, denies any chest pain, no fevers overnight. No abdominal pain, no dysuria. No diarrhea or nausea. No headaches. - Constitutional Vitals: Temp Pulse Resp BP Pulse Ox 97.8 F 78 15 130/64 96 09/15/16 11:11 09/15/16 11:11 09/15/16 11:11 09/15/16 11:11 09/15/16 11:11 General appearance: Present: cooperative, mild distress, A&O X 3, obese, answers questions appropriately - Head Head exam: Present: atraumatic, normocephalic - Eye Eye exam: Present: PERRL, conjuntiva pink, sclera anicteric Pupils: Present: PERRL - Neck Neck exam general surgery: Present: supple, trachea midline. Absent: lymphadenopathy - Respiratory Respiratory exam: Present: decreased breath sounds (Minimal bibasilar crackles) , CTAB. Absent: accessory muscle use, rales, rhonchi, wheezes - Cardiovascular Cardiovascular exam: Present: RRR, +S1, +S2. Absent: diastolic murmur, gallop, rubs, systolic murmur - GI/Abdominal GI/Abdominal exam: Present: normal bowel sounds, soft, no peritoneal signs. Absent: distended, tenderness - Extremities Exam Extremities exam: Present: warm, radial pulses palpable and symetrical. Absent : calf tenderness, cyanotic, pedal edema - Neurological Exam Neurological exam: Present: CN II-XII intact, oriented X3, no focal deficits. Absent: pronater drift, facial droop, speech deficit - Skin Skin exam: Present: dry, intact Internal Medicine: Result - Labs CBC & Chem 7: 09/15/16 04:35 09/15/16 04:35 Labs: Short CBC 09/15/16 Range/Units 04:35 WBC 22.3 H D (4.3-11.1) K/mcL Hgb 12.0 D (11.5-15.4) g/dL Hct 35.5 (35.3-44.9) % Plt Count 268 (140-400) K/mcL BMP 09/15/16 04:35 Sodium 132 L Potassium 3.4 L Chloride 94 L Carbon Dioxide 26 BUN 20 Creatinine 0.99 Glucose 183 H Calcium 9.6 Cardiac Enzymes 09/14/16 09/15/16 09/15/16 Range/Units 21:44 04:35 10:11 Troponin I 0.02 0.02 0.03 (0-0.03) ng/mL Liver Function 09/15/16 Range/Units 04:35 Total Bilirubin 0.5 (0.2-1.2) mg/dL AST 18 (5-34) Units/L ALT 16 (0-55) Units/L Alkaline Phosphatase 78 (38-126) Units/L Albumin 3.3 L (3.5-5.0) g/dL - ABG Interpretation ABG results: PT/INR, D-dimer PT 11.8 Seconds (9.4-12.1) 09/15/16 04:35 Consult Discharge Plan - Plan Referrals: Lucian Carrasquillo Jr, MD [Primary Care Provider] -
[2016-09-15] MEDS: predniSONE 20 MG TABLET PO SCH (12:20)
[2016-09-15] MEDS: Furosemide 40 MG/4 ML VIAL IV SCH ×2 (12:26→17:50)
[2016-09-15 14:31] LABS: Adenovirus Not Detected (Not Detect); Bordetella Pertussis Not Detected (Not Detect); Chlamydophila pneumoniae Not Detected (Not Detect); Coronavirus 229E Not Detected (Not Detect); Coronavirus HKU1 Not Detected (Not Detect); Coronavirus NL63 Not Detected (Not Detect); Coronavirus OC43 Not Detected (Not Detect); Human Metapneumovirus Not Detected (Not Detect); Human Rhinovirus/Enterovirus ***DETECTED*** (Not Detect); Influenza A Subtype 2009 H1 Not Detected (Not Detect); Influenza A Untypeable Not Detected (Not Detect); Influenza B Not Detected (Not Detect); Mycoplasma pneumoniae Not Detected (Not Detect); Parainfluenza Virus 1 Not Detected (Not Detect); Parainfluenza Virus 2 Not Detected (Not Detect); Parainfluenza Virus 3 Not Detected (Not Detect); Parainfluenza Virus 4 Not Detected (Not Detect); Respiratory Syncytial Virus Not Detected (Not Detect)
--- NOTE | 2016-09-15 18:46 | ECHO - Doppler Report ---
Echocardiogram Name: Fanny Mendiola Date of Study: 09/15/2016 Date: 1935 Ht: 62.0 in Medical Record#: [id number] Age: 81 Wt: 164.0 lb Gender: Female BSA: 1.76 Order #: [id number] Location: [facility] Room #: 3B32 Reading Physician: Mayank Tinajero MD, [facility] Enterprise Application Developer: Chhaya Lobo Ordering Physician: Mario Chapin MD Primary Physician: Lucian Carrasquillo MD Indications: Congestive heart failure Impressions: LVEF 55-60%. There is hypokinesis of the basal-mid inferior wall. Normal right ventricular size and function. No significant valvular dysfunction. Mild pulmonary hypertension. Estimated RVSP = 36 mmHg. Left Ventricular Wall Motion: Rest Echo Findings The mid inferior and basal inferior parada were hypokinetic. All other wall segments showed normal motion. Findings: Study Quality * Technically adequate exam. ECG Findings * Sinus rhythm with occasional PVCs. Left Ventricle * LVEF 55-60%. There is hypokinesis of the basal-mid inferior wall. * Normal LV chamber size and wall thickness. * Indeterminate diastolic function. Right Ventricle * Normal right ventricular size and function. Left Atrium * Normal left atrial size. Right Atrium * Normal right atrial size. Aorta * Normally sized aortic root. Pericardium * There is no pericardial effusion present. IVC * Normal IVC dimensions and inspiratory collapse. Aortic Valve * Aortic valve not well visualized. Appears trileaflet with mild sclerosis. * No aortic stenosis. * No aortic regurgitation. Mitral Valve * Mild mitral annular calcification * No mitral stenosis. * Trace mitral regurgitation. Tricuspid Valve * Tricuspid valve not well visualized. * No tricuspid stenosis. * Trace tricuspid regurgitation. * Mild pulmonary hypertension. Estimated RVSP = 36 mmHg. Pulmonic Valve * Pulmonic valve not well visualized. * No pulmonic stenosis. * No pulmonic regurgitation. History Hypertension Family History of CAD Myocardial Infarction 05/17/2013 a Previous Echo was performed. Measurements: BP: 117/ 57 2D Normal Values RVIDd: 3.50 cm IVSd: 1.00 cm 0.6 - 1.0 cm LVIDd: 4.50 cm 3.7 - 5.6 cm LVPWd: 1.00 cm 0.6 - 1.1 cm LVIDs: 2.80 cm 1.5 - 3.6 cm AO: 2.90 cm < 4.0 cm LA volume: 46 Mitral Valve Peak E:.91 m/sec Peak A:1.01 m/sec E/A Ratio:0.9 Tricuspid Valve TV Regurg Peak Grad: 33.00mmHg TV Regurg Peak Isauro: 2.86m/sec Updated by Mayank Tinajero MD, [facility] on 09/15/2016 6:39:03 PM electronically signed on 09/15/2016 6:39:35 PM with status of Final Wall Motion Auguste: 1=Normal, 2=Hypokinesis, 3=Akinesis, 4=Dyskinesis, 5=Aneurysmal, 6=Hyperkinetic, X=Not Visualized (Blank)=Missing
--- NOTE | 2016-09-15 19:49 | Electrocardiograph Report ---
[place] [address] Test Date: 2016-09-14 Pat Name: Fanny Mendiola Department: 105 Room: 3B32 Gender: F Distillation Operator: : 1935 Requested By: Mario Chapin Order Number: [id number] Reading MD: Felipe Diaz Measurements Intervals [place] Rate: 79 P: 58 TN: 183 QRS: 33 QRSD: 97 T: 37 QT: 385 QTc: 420 Interpretive Statements SINUS RHYTHM INFEROLATERAL ST CHANGES Electronically Signed On 09-15-2016 19:47:50 EST by Felipe Diaz
--- NOTE | 2016-09-15 19:51 | Electrocardiograph Report ---
[address] [address] Test Date: 2016-09-14 Pat Name: Fanny Mendiola Department: 105 Room: 3B32 Gender: F Physician Recruiter: : 1935 Requested By: Wayne Rangel Order Number: [id number] Reading MD: Felipe Diaz Measurements Intervals [place] Rate: 88 P: 34 AR: 186 QRS: 27 QRSD: 85 T: 19 QT: 356 QTc: 401 Interpretive Statements SINUS RHYTHM WITH OCCASIONAL VENTRICULAR PREMATURE COMPLEXES BASELINE ARTIFACT Electronically Signed On 09-15-2016 19:49:46 EST by Felipe Diaz
[2016-09-15] MEDS: 0.9 % Sodium Chloride w KCl 20 MEQ/1,000 ML MLS IVC SCH (20:29)
[2016-09-16] MEDS: Acetylcysteine 10% 2 ML INHSOL IH SCH ×2 (03:47→10:07)
[2016-09-16] MEDS: Ipratropium/Albuterol Neb 3 ML IH SCH ×2 (03:48→10:06)
[2016-09-16 05:16] LABS: Hematocrit 33.2 % (35.3-44.9); Mean Corpuscular HGB Conc 33.1 g/dL (31.6-35.5); Mean Corpuscular Hemoglobin 29.1 pg (28.0-33.3); Mean Corpuscular Volume 87.8 fL (83.0-100.0); Mean Platelet Volume 10.1 fL (9.4-12.4); Platelet Count 246 K/mcL (140-400); Red Blood Count 3.78 M/mcL (3.82-4.97); Red Cell Distribution Width 13.5 % (11.5-14.5)
--- NOTE | 2016-09-16 06:05 | Internal Med Progress Note ---
<Guillermo Brown - Last Filed: 09/16/16 08:29> Date of Encounter: 09/16/16 Time of Encounter: 06:03 - Assessment and plan (1) CHF (congestive heart failure) Current Visit: Yes Status: Acute Assessment and plan: 09/16/16 Respiratory viral panel detected entero/rhinovirus but was negative for all other pathogens Echocardiogram shows LVEF 55-60% with hypokinesis of basal-mid inferior wall and indeterminate diastolic function Continue Lasix 09/15/16 Acute hypoxic respiratory failure secondary to combination of acute pulmonary edema due to possible undiagnosed acute CHF exacerbation systolic versus diastolic with possible acute COPD exacerbation secondary to acute bronchitis viral versus bacterial Continue Rocephin and discontinue azithromycin Order respiratory viral panel Stop Solu-Medrol and continue prednisone Start Lasix IV, strict I's and O's and daily weight and check an echocardiogram Qualifiers: Congestive heart failure type: unspecified congestive heart failure type Congestive heart failure chronicity: acute Qualified Code(s): I50.9 - Heart failure, unspecified (2) Acute exacerbation of chronic obstructive pulmonary disease (COPD) Current Visit: Yes Status: Acute Assessment and plan: O2 sat has been in high 90s on 2-4 L nasal cannula Continue duo nebs Solu-Medrol changed to prednisone (3) Hypokalemia Current Visit: Yes Status: Acute Assessment and plan: Continue to replete as needed (4) Pulmonary edema Current Visit: Yes Status: Acute Qualifiers: Chronicity: acute Qualified Code(s): J81.0 - Acute pulmonary edema (5) Bronchitis Current Visit: Yes Status: Acute (6) Hypoxia Current Visit: Yes Status: Acute (7) Leukocytosis Current Visit: Yes Status: Acute Assessment and plan: 09/16/69 WBCs = 13.6 on admission Significant increase to 22 Steroids likely contributory 09/15/16 Likely secondary to bronchitis Qualifiers: Leukocytosis type: unspecified Qualified Code(s): D72.829 - Elevated white blood cell count, unspecified - Subjective Interval history: Patient seen and examined at bedside this morning. She says her breathing is somewhat better relative to yesterday. She denies chest pain, abdominal pain, fever/chills - Constitutional Vitals: Temp Pulse Resp BP Pulse Ox 97.3 F L 76 18 124/67 96 09/16/16 04:01 09/16/16 04:01 09/16/16 04:01 09/16/16 04:01 09/16/16 04:01 General appearance: Present: cooperative, mild distress, A&O X 3, obese, answers questions appropriately - Head Head exam: Present: atraumatic, normocephalic - Eye Eye exam: Present: PERRL, conjuntiva pink, sclera anicteric Pupils: Present: PERRL - Neck Neck exam general surgery: Present: supple, trachea midline. Absent: lymphadenopathy - Respiratory Respiratory exam: Present: rales. Absent: accessory muscle use, rhonchi, wheezes Additional comments: decreased breath sounds (Minimal bibasilar crackles) - Cardiovascular Cardiovascular exam: Present: RRR, +S1, +S2. Absent: diastolic murmur, gallop, rubs, systolic murmur - GI/Abdominal GI/Abdominal exam: Present: normal bowel sounds, soft, no peritoneal signs. Absent: distended, tenderness - Extremities Exam Extremities exam: Present: warm, radial pulses palpable and symetrical. Absent : calf tenderness, cyanotic, pedal edema - Neurological Exam Neurological exam: Present: CN II-XII intact, oriented X3, no focal deficits. Absent: pronater drift, facial droop, speech deficit - Skin Skin exam: Present: dry, intact Internal Medicine: Result - Labs CBC & Chem 7: 09/16/16 04:21 09/16/16 04:21 Labs: Short CBC 09/16/16 Range/Units 04:21 WBC 20.8 H (4.3-11.1) K/mcL Hgb 11.0 L (11.5-15.4) g/dL Hct 33.2 L (35.3-44.9) % Plt Count 246 (140-400) K/mcL Cardiac Enzymes 09/15/16 Range/Units 10:11 Troponin I 0.03 (0-0.03) ng/mL - ABG Interpretation ABG results: PT/INR, D-dimer PT 11.8 Seconds (9.4-12.1) 09/15/16 04:35 Consult Discharge Plan - Plan Additional Instructions: Follow with primary care physician within the next 7 days. Continue amoxicillin , taper prednisone. Continue Lasix until her next appointment with Dr. Torres. Off work for the next 7 days. Referrals: Lucian Carrasquillo Jr, MD [Primary Care Provider] - 09/30/16 11:15 am Prescriptions: Amoxicillin 875 mg PO BID 5 Days Furosemide [Lasix] 20 mg PO DAILY #30 tablet Potassium Chloride [K-Tab ER] 8 meq PO DAILY #30 tablet.er PredniSONE 10 mg PO DAILY 12 Days <Reji-ReginaldojayMario - Last Filed: 09/16/16 09:48> Date of Encounter: 09/16/16 - Assessment and plan (1) CHF (congestive heart failure) Current Visit: Yes Status: Acute Qualifiers: Congestive heart failure type: diastolic Congestive heart failure chronicity: acute Qualified Code(s): I50.31 - Acute diastolic (congestive) heart failure (2) Acute exacerbation of chronic obstructive pulmonary disease (COPD) Current Visit: Yes Status: Acute (3) Hypokalemia Current Visit: Yes Status: Acute (4) Pulmonary edema Current Visit: Yes Status: Acute Qualifiers: Chronicity: acute Qualified Code(s): J81.0 - Acute pulmonary edema (5) Bronchitis Current Visit: Yes Status: Acute (6) Hypoxia Current Visit: Yes Status: Acute (7) Leukocytosis Current Visit: Yes Status: Acute Qualifiers: Leukocytosis type: unspecified Qualified Code(s): D72.829 - Elevated white blood cell count, unspecified - Constitutional Vitals: Temp Pulse Resp BP Pulse Ox 97.9 F 70 15 125/73 100 09/16/16 07:21 09/16/16 07:21 09/16/16 07:21 09/16/16 07:21 09/16/16 07:21 Internal Medicine: Result - Labs CBC & Chem 7: 09/16/16 04:21 09/16/16 04:21 Labs: Short CBC 09/16/16 Range/Units 04:21 WBC 20.8 H (4.3-11.1) K/mcL Hgb 11.0 L (11.5-15.4) g/dL Hct 33.2 L (35.3-44.9) % Plt Count 246 (140-400) K/mcL BMP 09/16/16 04:21 Sodium 132 L Potassium 4.3 Chloride 97 L Carbon Dioxide 25 BUN 28 H Creatinine 0.89 Glucose 144 H Calcium 9.0 Cardiac Enzymes 02/16/17 Range/Units 10:11 Troponin I 0.03 (0-0.03) ng/mL - ABG Interpretation ABG results: PT/INR, D-dimer PT 11.8 Seconds (9.4-12.1) 09/15/16 04:35 - Attending Attestation please read discharge summary
[2016-09-16 06:17] LABS: Carbon Dioxide 25 mEq/L (19-29); Chloride 97 mEq/L (98-109); Glucose 144 mg/dL (70-99); Potassium 4.3 mEq/L (3.5-4.5); Sodium 132 mEq/L (136-145); eGFR For African Americans > 60 (> 60); eGFR For Non-African Americans > 60 (> 60)
[2016-09-16 07:24] VITALS: BP 125/73
[2016-09-16] MEDS: Furosemide 40 MG/4 ML VIAL IV SCH (09:03)
[2016-09-16] MEDS: Aspirin 81 MG TAB.CHEW PO SCH (09:04)
[2016-09-16] MEDS: Loratadine 10 MG TABLET PO SCH (09:04)
[2016-09-16] MEDS: predniSONE 20 MG TABLET PO SCH (09:04)
[2016-09-16] MEDS: Diltiazem CD (24hr) 240 MG CAPSULE PO SCH (09:04)
[2016-09-16] MEDS: Isosorbide MONOnitrate (24 HR) 60 MG TAB.ER.24H PO SCH (09:04)
[2016-09-16] MEDS: Saline Nasal Spray 44 ML BOTTLE NS SCH (09:18)
[2016-09-16] MEDS: Fluticasone Propionate Nasal 50 MCG/SPRAY BOTTLE NS SCH (09:18)
--- NOTE | 2016-09-16 09:36 | Discharge Summary ---
Date of Encounter: 09/16/16 Time of Encounter: 09:33 - Discharge Diagnosis (1) CHF (congestive heart failure) Priority: Primary Status: Acute Comments: Acute hypoxic respiratory failure secondary to combination of acute COPD exacerbation secondary to acute pulmonary edema due to acute viral bronchitis viral (entero/rhino virus) and possible acute diastolic CHF exacerbation Qualifiers: Congestive heart failure type: diastolic Congestive heart failure chronicity: acute Qualified Code(s): I50.31 - Acute diastolic (congestive) heart failure (2) Acute exacerbation of chronic obstructive pulmonary disease (COPD) Priority: Primary Status: Acute (3) Hypokalemia Priority: Secondary Status: Acute (4) Pulmonary edema Priority: Primary Status: Acute Qualifiers: Chronicity: acute Qualified Code(s): J81.0 - Acute pulmonary edema (5) Bronchitis Priority: Primary Status: Acute (6) Hypoxia Priority: Primary Status: Acute (7) Leukocytosis Priority: Primary Status: Acute Comments: Likely secondary to steroids Qualifiers: Leukocytosis type: unspecified Qualified Code(s): D72.829 - Elevated white blood cell count, unspecified - Discharge Medications Prescriptions: Amoxicillin 875 mg PO BID 5 Days Furosemide [Lasix] 20 mg PO DAILY #30 tablet Potassium Chloride [K-Tab ER] 8 meq PO DAILY #30 tablet.er PredniSONE 10 mg PO DAILY 12 Days Home Medications: Acetaminophen [Tylenol Arthritis] 1,300 mg PO HS 09/14/16 [History] Aspirin 81 mg PO DAILY 09/14/16 [History] Cyanocobalamin (Vitamin B-12) [Vitamin B-12] 100 mcg PO DAILY 09/14/16 [History] Diltiazem HCl [Diltiazem 24Hr Cd] 240 mg PO DAILY 09/14/16 [History] Fluticasone Propionate Nasal [Flonase] 50 mcg NS BID 09/14/16 [History] Ginseng 100 mg PO DAILY 09/14/16 [History] Isosorbide MONOnitrate (24 HR) [Imdur] 60 mg PO DAILY 09/14/16 [History] LORazepam [Ativan] 0.5 mg PO BID PRN 09/14/16 [History] Loratadine [Claritin] 10 mg PO DAILY 09/14/16 [History] Meloxicam [Mobic] 7.5 mg PO DAILY 09/14/16 [History] Metoprolol XL (24 HR) Succ [Toprol Xl] 50 mg PO DAILY 09/14/16 [History] Nitroglycerin 0.4 mg SL Q5MIN PRN 09/14/16 [History] Omeprazole [PriLOSEC] 20 mg PO DAILY 09/14/16 [History] Oxybutynin Chloride [Ditropan Xl] 10 mg PO DAILY 09/14/16 [History] Saline Nasal [place] [[place] Nasal [place]] 2 spray NS BID 09/14/16 [History] Triamterene/HCTZ 37.5/25mg [Dyazide] 1 each PO DAILY 09/14/16 [History] Amoxicillin 875 mg PO BID 5 Days 09/16/16 [Rx] Furosemide [Lasix] 20 mg PO DAILY #30 tablet 09/16/16 [Rx] Potassium Chloride [K-Tab ER] 8 meq PO DAILY #30 tablet.er 09/16/16 [Rx] PredniSONE 10 mg PO DAILY 12 Days 09/16/16 [Rx] Allergies/Adverse Reactions: Allergies No Known Allergies Allergy (Verified 09/14/16 16:17) Procedures/tests Complete & Pending: Procedures Performed prior 72 hours Category Date Time Status ECG 12 lead ECG [ECG] Routine Y 09/14/16 17:41 Completed EV echocardiogram Routine Y 09/15/16 12:06 Completed Date of admission: 09/14/16 19:52 Primary care physician: Lucian Carrasquillo Jr, MD Consults: 09/14/16 21:17 Consult to Nurse Navigator [CONS] Routine Comment: 09/14/16 21:23 Consult to Occupational Therapy [CONS] Routine Comment: Evaluate, develop and implement POC Consult to Physical Therapy [CONS] Routine Comment: Evaluate, develop and implement POC - Patient Status Disposition: Home, Self-Care Condition: Good Overall status at discharge: patient is progressing back to baseline - Discharge Instructions Follow Up With: Lucian Carrasqiullo Jr, MD [Primary Care Provider] - 09/30/16 11:15 am Additional Instructions: Follow with primary care physician within the next 7 days. Continue amoxicillin , taper prednisone. Continue Lasix until her next appointment with Dr. Torres. Off work for the next 7 days. - Diet and Activity Activity: increase activity as tolerated Diet: low fat, low cholesterol Hospital course: Ms. Mendiola is a 81 year old female with past medical history of hypertension, CAD with prior MT, hyperlipidemia, GERD, anxiety, osteoarthritis. She is a former smoker. Pt presented to the ED the evening of 09/14/16 for shortness of breath, cough, and congestion, quit 20 years ago. O2 sat = 85% on room air in the ED. She had been seen as an outpatient 08/12/16 for URI symptoms and treated with antihistamine, nasal saline, and Afrin. She returned 09/02/16 with continued cough, chest congestion, and dyspnea on exertion. EKG at that time was unchanged from prior EKGs. In ED, there was concern for pulmonary edema vs pneumonia vs COPD exacerbation (patient has no formal diagnosis of COPD). BNP mildly elevated at 186 and WBC count = 13.6. On 3 L O2 O2 sat was 89-90%, on 4 L = 94-95%. Chest x-ray showed chronic changes of cardiomegaly and COPD. Mild vascular congestion may indicate mild pulmonary edema. The patient was started on ceftriaxone and azithromycin, azithromycin was discontinued. Solu-Medrol was stopped and she was started on prednisone. Lasix IV was started and potassium was repleted. 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 The patient's white blood cell count increased up to 22.3 after starting steroids and decreased down to 20.8 but clinically she feels much better and prefers to be discharged home. An echocardiogram was done showing an ejection fraction of 55-60% with hypokinetic mid inferior wall. The patient will be discharged on doses of Lasix, potassium, prednisone taper and amoxicillin. - Time Spent with Patient Total time spent providing and/or coordinating discharge services: Greater than 30 minutes (40 min) - Constitutional Vitals: Temp Pulse Resp BP Pulse Ox 97.9 F 70 15 125/73 100 09/16/16 07:21 09/16/16 07:21 09/16/16 07:21 09/16/16 07:21 09/16/16 07:21 General appearance: Present: cooperative, mild distress, A&O X 3, obese, answers questions appropriately - Head Head exam: Present: atraumatic, normocephalic - Eye Eye exam: Present: PERRL, conjuntiva pink, sclera anicteric Pupils: Present: PERRL - Neck Neck exam general surgery: Present: supple, trachea midline. Absent: lymphadenopathy - Respiratory Respiratory exam: Present: CTAB, rales (fine bibasilar crackles). Absent: accessory muscle use, rhonchi, wheezes - Cardiovascular Cardiovascular exam: Present: RRR, +S1, +S2. Absent: diastolic murmur, gallop, rubs, systolic murmur - GI/Abdominal GI/Abdominal exam: Present: normal bowel sounds, soft, no peritoneal signs. Absent: distended, tenderness - Extremities Exam Extremities exam: Present: warm, radial pulses palpable and symetrical. Absent : calf tenderness, cyanotic, pedal edema - Neurological Exam Neurological exam: Present: CN II-XII intact, oriented X3, no focal deficits. Absent: pronater drift, facial droop, speech deficit - Skin Skin exam: Present: dry, intact
[2016-09-16 14:40] LABS: Blood Urea Nitrogen 22 mg/dL (7-20)
[2016-09-16 14:41] LABS: BUN/Creatinine Ratio 25 (6-26); Osmolality,Calculated 280 (280-300)
== END 2016-09-16 12:12 | disposition home or self-care (01) ==
LOC: 3BNU 16:15 → EMEROO 16:15 → SUATTDRO 19:52 → 3BNU 20:19
PROVIDERS: ADMIT Family Medicine; ATTEND Internal Medicine

== ENCOUNTER 2017-10-07 21:32 | Observation (INO) ==
[2017-10-07 22:18] LABS: Basophils % 0.4 %; Eosinophils # 0.1 K/mcL (0.0-0.6); Eosinophils % 0.6 %; Hematocrit 43.4 % (35.3-44.9); Hemoglobin 14.5 g/dL (11.5-15.4); Immature Granulocytes % 0.5 % (0-4); Lymphocytes # 2.3 K/mcL (0.6-4.6); Lymphocytes % 29.6 %; Mean Corpuscular HGB Conc 33.4 g/dL (31.6-35.5); Mean Corpuscular Hemoglobin 29.7 pg (28.0-33.3); Mean Corpuscular Volume 88.8 fL (83.0-100.0); Mean Platelet Volume 9.4 fL (9.4-12.4); Monocytes % 13.3 %; Neutrophils # 4.3 K/mcL (1.6-8.9); Platelet Count 212 K/mcL (140-400); Red Blood Count 4.89 M/mcL (3.82-4.97); Red Cell Distribution Width 13.6 % (11.5-14.5); Segmented Neutrophils % 55.6 %
[2017-10-07 22:24] LABS: INR 0.9; Prothrombin Time 9.6 Seconds (9.4-12.1)
[2017-10-07 22:27] LABS: Activated Partial Thrombo Time 26.3 Seconds (26.0-36.0)
[2017-10-07] MEDS ORDERED: Aspirin 81 MG TAB.CHEW ONE (22:30)
[2017-10-07] MEDS: Aspirin 81 MG TAB.CHEW PO ONE ×2 (22:32→22:43)
[2017-10-07 22:39] LABS: BUN/Creatinine Ratio 22 (6-26); Blood Urea Nitrogen 18 mg/dL (8-23); Calcium 10.5 mg/dL (8.6-10.3); Carbon Dioxide 29 mEq/L (23-29); Chloride 95 mEq/L (98-107); Glucose 115 mg/dL (70-105); Osmolality,Calculated 281 (280-300); Potassium 3.6 mEq/L (3.5-5.1); Sodium 134 mEq/L (136-145); eGFR For African Americans > 60 (> 60); eGFR For Non-African Americans > 60 (> 60)
[2017-10-07 22:40] LABS: Troponin I < 0.03 ng/mL (< 0.04)
--- NOTE | 2017-10-07 23:29 | Emergency Department Note ---
Disposition Clinical Impression: Chest pain Qualifiers: Chest pain type: unspecified Qualified Code(s): R07.9 - Chest pain, unspecified Disposition: Admitted As Inpatient Condition: Good Time of Disposition: 01:28 General Adult HPI - General Chief complaint: ED Chest Pain Stated complaint: "dizzy all day, high bp. headache" Time Seen by Provider: 10/07/17 21:48 Source: patient Limitations: no limitations Nursing Notes Reviewed: Yes Vital Signs Reviewed: Yes - History of Present Illness HPI Narrative: 82-year-old female with significant past medical history of COPD, hypertension and CHF along with CVA presenting to the emergency Department chief complaint of chest pain and high blood pressure. Patient states today she is feeling overall weak. Earlier today she had an episode of substernal pressure that did not radiate but made her nauseous and weak. She denies vomiting or diaphoresis during this episode. Patient denies any pain at this time. Patient does states she has had an CO in the past but denies having a stent or CABG. Denies any anticoagulation. Pain Scale: 0 - Related Data Home Medications Medication Instructions Recorded Confirmed Acetaminophen [Tylenol Arthritis] 1,300 mg PO HS 09/14/16 04/20/17 Aspirin 81 mg PO DAILY 09/14/16 04/20/17 Cyanocobalamin (Vitamin B-12) 100 mcg PO DAILY 09/14/16 04/20/17 [Vitamin B-12] Fluticasone Propionate Nasal 50 mcg NS BID 09/14/16 04/20/17 [Flonase] Ginseng 100 mg PO DAILY 09/14/16 04/20/17 Isosorbide MONOnitrate (24 HR) 60 mg PO DAILY 09/14/16 04/20/17 [Imdur] LORazepam [Ativan] 0.5 mg PO BID PRN 09/14/16 04/20/17 Loratadine [Claritin] 10 mg PO DAILY 09/14/16 04/20/17 Metoprolol XL (24 HR) Succ [Toprol 50 mg PO DAILY 09/14/16 04/20/17 Xl] Nitroglycerin 0.4 mg SL Q5MIN PRN 09/14/16 04/20/17 Omeprazole [PriLOSEC] 20 mg PO DAILY 09/14/16 04/20/17 Oxybutynin Chloride [Ditropan Xl] 10 mg PO DAILY 09/14/16 04/20/17 Saline Nasal [place] [[place] Nasal 2 spray NS BID 09/14/16 04/20/17 Rake] Budesonide/Formoterol 160/4.5 2 puff IH BIDR 04/20/17 04/20/17 [Symbicort 160/4.5] Montelukast [Singulair] 10 mg PO DAILY 04/20/17 04/20/17 Previous Rx's Medication Instructions Recorded Atorvastatin [Lipitor] 40 mg PO HS #30 tablet 04/23/17 Clopidogrel [Plavix] 75 mg PO DAILY #30 tablet 04/23/17 Diltiazem CD (24hr) [Cardizem CD] 120 mg PO DAILY #30 cap.er.24h 04/23/17 Valsartan [Diovan] 80 mg PO BID #60 tablet 04/23/17 hydroCHLOROthiazide 25 mg PO DAILY #30 tablet 04/23/17 [Hydrochlorothiazide] Allergies Allergy/AdvReac Type Severity Reaction Status Date / Time No Known Allergies Allergy Verified 09/14/16 16:17 Limitations: ROS unobtainable due to patients medical condition Constitutional: Reports: weakness Cardiovascular: Reports: chest pain Past Medical History - Past Medical History Attestation: Yes The following information was validated with the patient. Medical history: Reports: arthritis, asthma, COPD, coronary artery disease, GERD , hyperlipidemia, hypertension, myocardial infarction, osteoporosis, pulmonary embolus, other Surgical history: Reports: cholecystectomy, hysterectomy, knee replacement, orthopedic, other, other Psychiatric history: Reports: no psych history - Social History Smoking Status: Former smoker Smokeless Tobacco Status: No Alcohol use: Reports: none Drug use: Reports: none Physical Exam - General Limitations: no limitations General appearance: alert, in no apparent distress - Head Head exam: atraumatic, normocephalic, normal inspection - Eye Eye exam: Present: normal appearance. Absent: scleral icterus, conjunctival injection - ENT ENT exam: normal exam, mucous membranes moist - Neck Neck exam: Present: normal inspection, full ROM. Absent: tenderness, meningismus - Chest Chest inspection: Present: normal inspection, symmetric chest wall rise. Absent : tenderness, rash - Respiratory Respiratory exam: Present: normal lung sounds bilaterally. Absent: respiratory distress, wheezes - Cardiovascular Cardiovascular exam: Present: regular rate, normal rhythm, normal heart sounds - Abdominal Exam Abdominal exam: Present: soft, Non-Tender. Absent: distention, guarding, rebound - Extremities Exam Extremities exam: Present: normal inspection, full ROM - Neurological Exam Neurological exam: Present: alert, oriented X3 - Psychiatric Psychiatric exam: Present: normal affect, normal mood - Skin Skin exam: Present: warm, intact Course Course Narrative: 82-year-old female presenting to the emergency department with chief complaint of chest pain and weakness. Patient is alert and oriented 3 in the room. Vital signs show hypertension but otherwise within normal limits and stable. We will perform a chest pain workup including basic labs along with troponin, EKG and chest x-ray. Disposition most likely admission due to patient's previous cardiac history. But pending results. Patient agrees with this plan. - Reevaluation(s) Reevaluation #1: All patient's lab work has resulted and is within normal limits. We will plan to admit the patient at this time for chest pain. Patient is alert and oriented 3 in the room. Blood pressure now lower than when she originally arrived. All other vital signs stable at this time. She agrees with this plan. Vital Signs Temperature 98.2 F 10/07/17 21:42 Pulse Rate 85 10/07/17 21:42 Respiratory Rate 20 10/07/17 21:42 Blood Pressure 209/110 10/07/17 21:42 O2 Sat by Pulse Oximetry 97 10/07/17 21:42 Temperature 98.2 F 10/07/17 21:42 Pulse Rate 92 10/08/17 01:29 Respiratory Rate 16 10/08/17 01:33 Blood Pressure 163/87 10/08/17 01:33 O2 Sat by Pulse Oximetry 97 10/08/17 01:29 Oxygen Delivery Oxygen Delivery Room Air Medical Decision Making - Lab Data Result diagrams: 10/07/17 22:01 10/07/17 22:01 Lab Results 10/07/17 10/07/17 10/07/17 Range/Units 22:01 22:01 22:01 WBC 7.7 (4.3-11.1) K/mcL RBC 4.89 (3.82-4.97) M/mcL Hgb 14.5 (11.5-15.4) g/dL Hct 43.4 (35.3-44.9) % MCV 88.8 (83.0-100.0) fL MCH 29.7 (28.0-33.3) pg MCHC 33.4 (31.6-35.5) g/dL RDW 13.6 (11.5-14.5) % Plt Count 212 (140-400) K/mcL MPV 9.4 (9.4-12.4) fL Immature Gran % 0.5 (0-4) % Seg Neutrophils % 55.6 % Lymphocytes % 29.6 % Monocytes % 13.3 % Eosinophils % 0.6 % Basophils % 0.4 % Neutrophils # 4.3 (1.6-8.9) K/mcL Lymphocytes # 2.3 (0.6-4.6) K/mcL Monocytes # 1.0 (0.0-1.3) K/mcL Eosinophils # 0.1 (0.0-0.6) K/mcL Basophils # 0.0 (0.0-0.2) K/mcL PT 9.6 (9.4-12.1) Seconds INR 0.9 APTT 26.3 (26.0-36.0) Seconds Sodium 134 L (136-145) mEq/L Potassium 3.6 (3.5-5.1) mEq/L Chloride 95 L (98-107) mEq/L Carbon Dioxide 29 (23-29) mEq/L BUN 18 (8-23) mg/dL Creatinine 0.81 (0.60-1.20) mg/dL Est GFR ( Amer) > 60 (> 60) Est GFR (Non-Af Amer) > 60 (> 60) BUN/Creatinine Ratio 22 (6-26) Glucose 115 H (70-105) mg/dL Calculated Osmolality 281 (280-300) Calcium 10.5 H (8.6-10.3) mg/dL Troponin I < 0.03 (< 0.04) ng/mL - EKG Data EKG #1 EKG attestation: Yes I reviewed and interpreted this EKG. EKG results narrative: Sinus rhythm. [address] depression noted in V4, V5 and V6. MI interval 169, QRS 90, QTC 390. No signs of acute ST segment elevation or ischemia. Compared to previous EKG completed on 04/20/[address] depression noted in V4, V5, V6. Attestation Statement - Attestation Attestation: I examined this patient and my medical decision-making was reviewed with the Resident Physician. I agree with the documented findings, disposition and treatment plan as described except to the extent set forth below. Patient to the ED with a chief complaint of weakness chest pressure. Patient states her blood pressures been running high as well. States the chest pressure is making her nauseated. On examination she is in no acute distress. Her symptoms have resolved on my evaluation. She is no longer having chest pressure. Lungs clear heart regular. Plan. EKG with some anterolateral ST depressions are new. Troponin negative. Blood pressure hyporesponsive to Lopressor and hydralazine. She is admitted to medicine for further workup.
[2017-10-07] MEDS ORDERED: *HR* Metoprolol 5 MG/5 ML VIAL IVP ONE (23:30)
[2017-10-08] MEDS ORDERED: Ondansetron 4 MG/2 ML VIAL IVP ONE (01:17)
[2017-10-08] MEDS ORDERED: Ondansetron 4 MG/2 ML VIAL ONE (01:18)
[2017-10-08] MEDS ORDERED: Naloxone 0.4 MG/ML INJ IVP PRN (04:17)
[2017-10-08] MEDS ORDERED: *HR* OxyCODONE Immed Rel 5 MG TABLET PO PRN (04:17)
[2017-10-08] MEDS ORDERED: Nitroglycerin 0.4 MG TAB.SUBL SL PRN (04:23)
--- NOTE | 2017-10-08 04:32 | Internal Med History&Physical ---
Date of Encounter: 10/08/17 Time of Encounter: 03:45 Assessment and Plan (1) Chest pain Current visit: Yes Status: Acute 1. WIll cycle troponins and EKG's. 2. BP control should help alleviate chest pain. 3. Schedule stress test for tomorrow. 4. Recent ECHO reviewed -- LVEF 55-60% with normal LV function. Qualifiers: Chest pain type: chest pain due to myocardial ischemia Ischemic chest pain type: stable angina pectoris Qualified Code(s): I20.8 - Other forms of angina pectoris (2) Hypertensive emergency Current visit: No Status: Acute 1. BP responded to hydralazine in ER. 2. Will use PRN Hydralazine. 3. Schedule home medications once verified and reconciled. 4. Monitor BP and adjust medications as necessary. (3) DVT prophylaxis Current visit: No Status: Acute 1. Heparin SQ. Internal Medicine - H&P: HPI Chief complaint: chest pain; high blood pressure Admitted From: Emergency Dept Plans for Post Hospital Care: Home History of present illness: Ms. Mendiola is a 82 year old female who presents to the ER tonight with complaints of chest pain, pressure, and markedly elevated blood pressure. Workup revealed negative findings except for blood pressure severely elevated at 246/121. ER contacted me to admit the patient and I asked them to stabilize her blood pressure before she came to the floor. She was given a small dose of hydralazine with improvement in her blood pressure. Upon my assessment of the patient, she is currently chest pain-free and her blood pressure is improved. She states she has been hospitalized 3 times in the last several months for uncontrolled blood pressure. She has a history of heart disease, she denies any heart catheterization or intervention in the past. She did have a TIA/stroke in the past. She states she has had recently difficult to control blood pressure. She has had multiple changes in medications with her last hospital admissions. She has never seen a loaf counter and has no kidney problems to her knowledge. Past Med Surg Social Fam HX - Past Medical History Attestation: Yes The following information was validated with the patient. Source: patient, old records reviewed Medical history: arthritis, asthma, COPD, coronary artery disease, GERD, hyperlipidemia, hypertension, myocardial infarction, osteoporosis, pulmonary embolus Psychiatric history: no psych history - Past Surgical History Surgical History: cholecystectomy, hysterectomy, knee replacement, orthopedic, other, other - Social History Smoking Status: Former smoker Smokeless Tobacco Status: No Alcohol use: none Drug use: none Current living situation: Home Activity Level: Independent ambulation - Family History Brother Living Status: Hx Family Cardiac Disorders: No Hx Family Respiratory Disorders: No Hx Family Cancer: Yes (Sister, lung) Hx Family GI Disorders: No Hx Family Genitourinary Disorders: No Hx Family Endocrine Disorder: Yes (DM mothers family) Hx Family Musculoskeletal Disorders: No Hx Family Neuromuscular Disorders: No Hx Family Neurologic Disorders: No Hx Family HEENT Disorders: No Hx Family Autoimmune Disorders: No Hx Family Reproductive Disorders: No Hx Family Psychosocial Disorders: No Hx Family Medical Disorders: No Mother Living Status: Cause of : cerebral hemorrhage Hx Family Neurologic Disorders: Yes Internal Medicine - H&P: Meds Acetaminophen [Tylenol Arthritis] 1,300 mg PO HS 09/14/16 [History] Aspirin 81 mg PO DAILY 09/14/16 [History] Cyanocobalamin (Vitamin B-12) [Vitamin B-12] 100 mcg PO DAILY 09/14/16 [History] Fluticasone Propionate Nasal [Flonase] 50 mcg NS BID 09/14/16 [History] Ginseng 100 mg PO DAILY 09/14/16 [History] Isosorbide MONOnitrate (24 HR) [Imdur] 60 mg PO DAILY 09/14/16 [History] LORazepam [Ativan] 0.5 mg PO BID PRN 09/14/16 [History] Loratadine [Claritin] 10 mg PO DAILY 09/14/16 [History] Metoprolol XL (24 HR) Succ [Toprol Xl] 50 mg PO DAILY 09/14/16 [History] Nitroglycerin 0.4 mg SL Q5MIN PRN 09/14/16 [History] Omeprazole [PriLOSEC] 20 mg PO DAILY 09/14/16 [History] Oxybutynin Chloride [Ditropan Xl] 10 mg PO DAILY 09/14/16 [History] Saline Nasal [place] [[place] Nasal [place]] 2 spray NS BID 09/14/16 [History] Budesonide/Formoterol 160/4.5 [Symbicort 160/4.5] 2 puff IH BIDR 04/20/17 [ History] Montelukast [Singulair] 10 mg PO DAILY 04/20/17 [History] Atorvastatin [Lipitor] 40 mg PO HS #30 tablet 04/23/17 [Rx] Clopidogrel [Plavix] 75 mg PO DAILY #30 tablet 04/23/17 [Rx] Diltiazem CD (24hr) [Cardizem CD] 120 mg PO DAILY #30 cap.er.24h 04/23/17 [Rx] Valsartan [Diovan] 80 mg PO BID #60 tablet 04/23/17 [Rx] hydroCHLOROthiazide [Hydrochlorothiazide] 25 mg PO DAILY #30 tablet 04/23/17 [Rx ] 3 Allergy/AdvReac Type Severity Reaction Status Date / Time No Known Allergies Allergy Verified 09/14/16 16:17 - Constitutional Constitutional: no chills, no fever(s), no night sweats - EENT Eyes: no blurry vision, no change in vision Ears: no ear pain, no tinnitus Nose, mouth and throat: no nasal congestion, no nasal discharge, no sinus pain, no sinus pressure, no sore throat - Cardiovascular Cardiovascular ROS IM: chest pain, no diaphoresis, no dyspnea, no dyspnea on exertion, no edema, no orthopnea, no paroxysmal nocturnal dyspnea, no syncope - Respiratory Respiratory: no cough, no hemoptysis, no chest congestion, no excessive phlegm production, no change in phlegm color - Gastrointestinal Gastrointestinal: no abdominal pain, no diarrhea, no hematemesis, no hematochezia, no melena, no vomiting - Genitourinary Genitourinary: no dysuria, no flank pain, no hematuria - Musculoskeletal Musculoskeletal ROS IM: no arthralgias, no back pain, no myalgias - Integumentary Integumentary IM: no rash, no jaundice - Neurological Neurological ROS: headache(s), no dizziness, no focal weakness, no frequent falls, no weakness - Psychiatric Psychiatric: no anxiety, no depression - Endocrine Endocrine IM: no polydipsia, no polyuria - Hematologic/Lymphatic Hematologic/Lymphatic: no easy bruising, no lymphadenopathy - Allergic/Immunologic Allergic/Immunologic: no wheezing, no GI upset with certain foods - Constitutional Vitals: Temp Pulse Resp BP Pulse Ox 97.5 F L 81 20 164/77 94 10/08/17 03:00 10/08/17 03:00 10/08/17 03:00 10/08/17 03:00 10/08/17 03:00 General appearance: Present: cooperative, A&O X 3, pleasant, no acute distress - Head Head exam: Present: normal inspection - Eye Eye exam: Present: EOMI, normal appearance, PERRL. Absent: scleral icterus Pupils: Present: normal accommodation - ENT ENT exam: Present: mucous membranes dry, normal exam, normal oropharynx - Neck Neck exam general surgery: Present: full ROM, supple. Absent: lymphadenopathy, tenderness, nuchal rigidity, thyromegaly - Respiratory Respiratory exam: Present: CTAB. Absent: chest wall tenderness, rales, respiratory distress, rhonchi, wheezes - Cardiovascular Cardiovascular exam: Present: RRR, +S1, +S2. Absent: diastolic murmur, JVD, systolic murmur - GI/Abdominal GI/Abdominal exam: Present: soft. Absent: hepatomegaly, mass, splenomegaly, no peritoneal signs - Extremities Exam Extremities exam: Present: full ROM, warm, radial pulses palpable and symmetrical. Absent: calf tenderness, joint swelling, pedal edema, tenderness - Back Exam Back exam: Absent: CVA tenderness (L), CVA tenderness (R) - Neurological Exam Neurological exam: Present: alert, altered, oriented X3, no focal deficits, strengths equal and symetr throughout. Absent: pronater drift - Psychiatric Psychiatric exam: Present: normal affect, normal mood - Skin Skin exam: Present: dry, warm. Absent: rash Internal Med - H&P Results - Labs CBC & Chem 7: 10/07/17 22:01 10/07/17 22:01 - EKG Data -: EKG Interpreted by Myself EKG shows normal: sinus rhythm - EKG Data Prior EKG available for review: yes When compared to previous EKG: there are significant changes EKG comments: 10/08/17 04:37 NSR; ST-T depression laterally - Diagnostic Studies Chest x-ray Status: image reviewed by me (negative)
[2017-10-08] MEDS: *HR* Heparin 5,000 UNIT/ML VIAL SQ SCH ×2 (05:35→18:04)
[2017-10-08] MEDS: Aspirin 81 MG TAB.CHEW PO SCH (11:28)
--- NOTE | 2017-10-08 14:21 | Event Note ---
<Lb Rojas - Last Filed: 10/08/17 15:07> Date of Encounter: 10/08/17 Time of Encounter: 14:20 Patient is an 82-year-old female with a past medical history of asthma, COPD, CAD, GERD, HLD, HTN, IA, PE and cholecystectomy admitted from the emergency department for chest pain. Denies any history of stents. Patient was having an episode of substernal pressure that occurred yesterday morning that made her nauseous and weak. In the emergency department patient was found to have severe hypertension. EKG showed new ST depressions noted in V4, V5, and V6. CBC in the emergency department was unremarkable. Initial troponin was negative. Chest x-ray was negative. Patient was hospitalized 3 times last several months for uncontrolled blood pressure. She states that since having her blood pressure lowered her symptoms have resolved and has been asystematic since then. VS 98.3F, 81, 14, 153/69, 91RA Physical Exam: CONSTITUTIONAL: Alert and oriented X3, well-nourished, well appearing, in no apparent distress HEAD: Normocephalic; atraumatic. EYES: PERRL, no scleral icterus. NOSE: The nose is normal in appearance without rhinorrhea RESP: Normal chest excursion with respiration; breath sounds clear and equal bilaterally; no wheezes, rhonchi, or rales CARD: Regular rhythm, without murmurs, rub or gallop ABD: Non-distended; non-tender, soft,without rigidity, rebound or guarding SKIN: Normal for age and race; warm and dry; no apparent lesions 1. Chest pain Patients blood pressure on arrival was 230s/120s on arrival, once controlled symptoms improved. Recent ECHO showed LVEF 55-66% with normal LV function Patient's repeat troponin was elevated at 0.06 Plan: Stress test tomorrow BP control to alleviate chest pain We will continue to trend troponin. I suspect that this elevated troponin is secondary to the patient's hypertension since her symptoms were controlled once her blood pressure was improved. 2. Hypertensive emergency Blood pressure responded to hydralazine in the emergency department Plan: Continue when necessary hydralazine Continue to monitor blood pressure Scheduled medications with verified and reconciled 3. DVT prophylaxis Heparin SQ <Guillermo Loo - Last Filed: 10/08/17 18:40> Date of Encounter: 10/08/17 I examined this patient and my medical decision-making was reviewed with the Resident Physician. I agree with the documented findings, disposition and treatment plan as described except to the extent set forth below.
[2017-10-09 04:43] LABS: Basophils % 0.4 %; Eosinophils % 0.2 %; Hematocrit 43.1 % (35.3-44.9); Hemoglobin 14.4 g/dL (11.5-15.4); Immature Granulocytes % 0.2 % (0-4); Lymphocytes # 1.5 K/mcL (0.6-4.6); Lymphocytes % 27.7 %; Mean Corpuscular HGB Conc 33.4 g/dL (31.6-35.5); Mean Corpuscular Hemoglobin 29.9 pg (28.0-33.3); Mean Corpuscular Volume 89.6 fL (83.0-100.0); Mean Platelet Volume 9.8 fL (9.4-12.4); Monocytes # 0.9 K/mcL (0.0-1.3); Monocytes % 17.5 %; Neutrophils # 2.9 K/mcL (1.6-8.9); Platelet Count 167 K/mcL (140-400); Red Blood Count 4.81 M/mcL (3.82-4.97); Red Cell Distribution Width 13.9 % (11.5-14.5)
[2017-10-09 04:56] LABS: Prothrombin Time 10.3 Seconds (9.4-12.1)
[2017-10-09 04:58] LABS: Activated Partial Thrombo Time 27.8 Seconds (26.0-36.0)
[2017-10-09] MEDS: Acetaminophen 325 MG TABLET PO PRN (04:59)
[2017-10-09] MEDS: *HR* Heparin 5,000 UNIT/ML VIAL SQ SCH ×2 (04:59→18:29)
[2017-10-09 05:06] LABS: Alanine Aminotransferase 21 Units/L (7-52); Albumin 3.8 g/dL (3.5-5.7); Albumin/Globulin Ratio 1.5 (1.1-2.2); Alkaline Phosphatase 82 Units/L (34-104); Aspartate Amino Transferase 21 Units/L (13-39); BUN/Creatinine Ratio 23 (6-26); Bilirubin,Total 0.8 mg/dL (0.3-1.0); Blood Urea Nitrogen 22 mg/dL (8-23); Calcium 9.4 mg/dL (8.6-10.3); Carbon Dioxide 30 mEq/L (23-29); Chloride 94 mEq/L (98-107); Chol/HDL Ratio 3.3 (0-4.9); Cholesterol 182 mg/dL (< 200); Globulin 2.6 g/dL (2.4-3.5); Glucose 106 mg/dL (70-105); HDL Cholesterol 56 mg/dL (40-59); LDL Cholesterol,Calculated 95 mg/dL (0-99); Osmolality,Calculated 278 (280-300); Potassium 3.5 mEq/L (3.5-5.1); Sodium 132 mEq/L (136-145); Total Protein 6.4 g/dL (6.4-8.9); Triglycerides 156 mg/dL (< 150); eGFR For African Americans > 60 (> 60); eGFR For Non-African Americans 56 (> 60)
[2017-10-09] MEDS: Aspirin 81 MG TAB.CHEW PO SCH (09:28)
--- NOTE | 2017-10-09 09:55 | Cardiology Consult Note ---
<Marilyn Kahn - Last Filed: 10/09/17 10:09> Date of Encounter: 10/09/17 Time of Encounter: 09:30 Assessment and Plan (1) Elevated troponin Current Visit: Yes Status: Acute Troponin negative <0.03, 0.05, 0.06, 0.08 in the setting of severely elevated BP , 243/129. Suspect demand ischemia, however ACS cannot be ruled out. Ischemic changes noted on ECG. Pain free upon exam. Hx of [facility] in 2012--demonstrated EXPRESS MANAGER of pRCA and moderate LAD disease (pLAD 50%) . Recommend [facility] with possible PCI; alternatives, benefits discussed. She is agreeable to proceed, will discuss with Dr. Prescott prior to placing order. Check echo. Further recommendations to follow. (2) Hypertensive emergency Current Visit: Yes Status: Acute BP 243/129 upon presentation. Patient reports medication compliance. Control now improved. Will change Toprol XL to coreg for improved BP control. Consider Nephrology evaluation. (3) CAD (coronary artery disease) Current Visit: Yes Status: Chronic Hx of CAD. [facility] 2012--EXPRESS MANAGER of pRCA with collaterals, otherwise moderate CAD (50% pLAD, 50% ostial 1st diagonal) TTE 03/2017: LVEF 60%, mild cLVH, mild LVDD, mild MR, mild segmental LV systolic dysfunction (mid inferior, basal inferior wall hypokinesis). Continue asa, statin. Start betablocker. Qualifiers: Coronary Disease-Associated Artery/Lesion type: unspecified vessel or lesion type [place] vs. transplanted heart: unspecified whether kas[place] or transplanted heart Associated angina: angina presence unspecified Qualified Code(s): I25.10 - Atherosclerotic heart disease of [place] coronary artery without angina pectoris Discussion w patient/family: The assessment and plan as outlined above was discussed with the patient and/or family members who expressed understanding and agreement. All questions were answered. Thank you for involving us in the care of your patient. Please call with any questions. The patient will be discussed and reviewed with Dr. Prescott; changes to be made accordingly. History of Present Illness Consult date: 10/09/17 Requesting physician: Che Christy Consult reason: Elevated troponin Chief complaint: Elevated BP, Chest pain History of present illness: Ms. Mendiola is a 82 year old female with PMHx significant for CVA (2016), HTN, CAD, and HLD who presented to the ED with severely elevated blood pressure with associated blurred vision. Initial BP found to be 243/129. Also reports non -radiating chest heaviness that improved once BP was controlled. Patient reports recent difficulty controlling blood pressure despite medication compliance. Stress test cancelled this AM due to elevated troponin and Cardiology was consulted. Prior CV testing: TTE 03/2017: LVEF 60%, mild cLVH, mild LVDD, mild segmental LV systolic dysfunction (mid inferior, basal inferior lateral parada) [facility] 2012: EXPRESS MANAGER of pRCA with collaterals, otherwise moderate CAD--50% pLAD, 50 % ostial diag Past Med Surg Social Fam HX - Past Medical History Attestation: Yes The following information was validated with the patient. Source: patient Medical history: arthritis, asthma, COPD, coronary artery disease, GERD, hyperlipidemia, hypertension, myocardial infarction, osteoporosis, pulmonary embolus Psychiatric history: no psych history - Past Surgical History Surgical History: cholecystectomy, hysterectomy, knee replacement, orthopedic, other, other - Social History Smoking Status: Former smoker Smokeless Tobacco Status: No Alcohol use: none Drug use: none - Family History Brother Living Status: Hx Family Cardiac Disorders: No Hx Family Respiratory Disorders: No Hx Family Cancer: Yes (Sister, lung) Hx Family GI Disorders: No Hx Family Genitourinary Disorders: No Hx Family Endocrine Disorder: Yes (DM mothers family) Hx Family Musculoskeletal Disorders: No Hx Family Neuromuscular Disorders: No Hx Family Neurologic Disorders: No Hx Family HEENT Disorders: No Hx Family Autoimmune Disorders: No Hx Family Reproductive Disorders: No Hx Family Psychosocial Disorders: No Hx Family Medical Disorders: No Mother Living Status: Cause of : cerebral hemorrhage Hx Family Neurologic Disorders: Yes Medications and Allergies Fluticasone Propionate Nasal [Flonase] 50 mcg NS BID 09/14/16 [History] Isosorbide MONOnitrate (24 HR) [Imdur] 60 mg PO DAILY 09/14/16 [History] Loratadine [Claritin] 10 mg PO DAILY 09/14/16 [History] Metoprolol XL (24 HR) Succ [Toprol Xl] 50 mg PO DAILY 09/14/16 [History] Nitroglycerin 0.4 mg SL Q5MIN PRN 09/14/16 [History] Omeprazole [PriLOSEC] 20 mg PO DAILY 09/14/16 [History] Montelukast [Singulair] 10 mg PO DAILY 04/20/17 [History] Atorvastatin [Lipitor] 40 mg PO HS #30 tablet 04/23/17 [Rx] Clopidogrel [Plavix] 75 mg PO DAILY #30 tablet 04/23/17 [Rx] Diltiazem CD (24hr) [Cardizem CD] 120 mg PO DAILY #30 cap.er.24h 04/23/17 [Rx] Valsartan [Diovan] 80 mg PO BID #60 tablet 04/23/17 [Rx] hydroCHLOROthiazide [Hydrochlorothiazide] 25 mg PO DAILY #30 tablet 04/23/17 [Rx ] Budesonide/Formoterol 160/4.5 [Symbicort 160/4.5] 2 puff IH BID 10/08/17 [ History] Ranitidine HCl [Acid Outpatient Services Director] 150 mg PO DAILY 10/08/17 [History] 3 Allergy/AdvReac Type Severity Reaction Status Date / Time No Known Allergies Allergy Verified 10/08/17 13:09 All Systems Review: The remainder of the systems were reviewed and are negative - Cardiovascular Cardiovascular: as per HPI Physical Examination Vital Signs, Last 4 Hours Temp Pulse Resp BP Pulse Ox 10/09/17 06:36 98.4 F 101 18 106/70 95 General: Conversant, No Apparent Distress HEENT: Atraumatic, Normocephaly, Mucus Membranes Moist Neck: No JVD, Normal carotid pulses Cardiac: Reg Rate and Rhythm, Normal S1 and S2, No Murmur Lungs: Normal Breath Sounds, No Wheeze, Rales, Rhonchi Neuro: Alert and responsive, No focal deficits noted Abdomen: Soft, Non-Tender Skin: No rashes noted on visualized skin Musculoskeletal: No Chest Wall Tenderness Extremities: No Clubbing, No Cyanosis, No Edema, Normal Pulses Results 10/09/17 03:43 10/09/17 03:43 Lab Results 10/08/17 10/08/17 10/09/17 10:03 15:37 03:43 WBC 5.4 Hgb 14.4 Hct 43.1 Plt Count 167 INR APTT Sodium Potassium Chloride Carbon Dioxide BUN Creatinine Glucose Calcium Magnesium Total Bilirubin AST ALT Alkaline Phosphatase Troponin I 0.06 H* 0.08 H* 10/09/17 10/09/17 03:43 03:43 WBC Hgb Hct Plt Count INR 1.0 APTT 27.8 Sodium 132 L Potassium 3.5 Chloride 94 L Carbon Dioxide 30 H BUN 22 Creatinine 0.95 Glucose 106 H Calcium 9.4 Magnesium 2.0 Total Bilirubin 0.8 AST 21 ALT 21 Alkaline Phosphatase 82 Troponin I Active Medications Acetaminophen (Tylenol) 650 mg PO Q6HR PRN PRN Reason: Mild Pain/Fever Stop: 04/09/18 04:18 Last Admin: 10/09/17 04:59 Dose: 650 mg Aspirin (Aspirin) 81 mg PO DAILY BANDAR Stop: 04/09/18 09:01 Last Admin: 10/09/17 09:28 Dose: 81 mg Atorvastatin Calcium (Lipitor) 40 mg PO HS [facility] Stop: 04/09/18 21:01 Last Admin: 10/08/17 21:57 Dose: 40 mg Heparin Sodium (Porcine) (Heparin) 5,000 unit SQ Q12HCO BANDAR Stop: 04/09/18 06:01 Last Admin: 10/09/17 04:59 Dose: 5,000 unit Hydralazine HCl (Hydralazine) 10 mg IVP Q6HR PRN PRN Reason: Hypertension Stop: 04/09/18 04:24 Last Admin: 10/09/17 04:59 Dose: 10 mg Naloxone HCl (Narcan) 0.4 mg IVP Q2MIN PRN PRN Reason: SEE COMMENTS Stop: 04/09/18 04:18 Nitroglycerin (Nitroglycerin) 0.4 mg SL Q5MIN PRN PRN Reason: Chest Pain Stop: 04/09/18 04:24 Oxycodone HCl (Roxicodone) 10 mg PO Q6HR PRN PRN Reason: Chest Pain Stop: 04/09/18 04:18 Last Admin: 10/08/17 05:42 Dose: 10 mg - Imaging and Cardiology Echo: pending, report reviewed Cardiac cath: report reviewed Other Results: 12 hour tele: avg HR=93 SR. Multifocal PVCs noted. - EKG Interpretation EKG results cardiology: personally reviewed Consult Discharge Plan - Plan Referrals: Elizabeth Bautista, NEW BUSINESS CLERK [Primary Care Provider] - <Sheryl Prescott - Last Filed: 10/09/17 11:42> Date of Encounter: 03/12/18 - Attending Attestation 82 YOF with non obstructive CAD involving the LAD and known occluded RCA presents with hypertensive urgency and elevated trops. She describes an episode of chest painon presentation with some vague epigastric like discomfort. EF 60% on last ECHO NSTEMI Chest Pain Hypertensive urgency EKG changes anterolateral Plan LHC R/B/A d/w patient and she agrees to proceed Assessment and Plan Discussion w patient/family: The assessment and plan as outlined above was discussed with the patient and/or family members who expressed understanding and agreement. All questions were answered. Thank you for involving us in the care of your patient. Please call with any questions. History of Present Illness History of present illness: Ms. Mendiola is a 82 year old female All Systems Review: The remainder of the systems were reviewed and are negative Physical Examination Vital Signs, Last 4 Hours Temp Pulse Resp BP Pulse Ox 10/09/17 10:31 98.1 F 76 18 159/73 93 Results 10/09/17 03:43 10/09/17 03:43 Lab Results 10/08/17 10/09/17 10/09/17 15:37 03:43 03:43 WBC 5.4 Hgb 14.4 Hct 43.1 Plt Count 167 INR 1.0 APTT 27.8 Sodium Potassium Chloride Carbon Dioxide BUN Creatinine Glucose Calcium Magnesium Total Bilirubin AST ALT Alkaline Phosphatase Troponin I 0.08 H* 10/09/17 10/09/17 03:43 11:08 WBC Hgb Hct Plt Count INR APTT Sodium 132 L Potassium 3.5 Chloride 94 L Carbon Dioxide 30 H BUN 22 Creatinine 0.95 Glucose 106 H Calcium 9.4 Magnesium 2.0 Total Bilirubin 0.8 AST 21 ALT 21 Alkaline Phosphatase 82 Troponin I 0.06 H*
[2017-10-09] MEDS ORDERED: 0.9 % Sodium Chloride 1,000 ML ONE ×2 (13:51→14:55)
[2017-10-09] MEDS ORDERED: Verapamil 5 MG/2 ML VIAL ONE (13:51)
[2017-10-09] MEDS ORDERED: *HR* Heparin 10,000 UNIT/10 ML VIAL ONE (13:51)
[2017-10-09] MEDS ORDERED: Heparin 1,000 UNITS/500 mL 500 ML ONE (13:51)
[2017-10-09] MEDS ORDERED: ISOVUE-370 200 ML INFUS..BTL IV ONE (13:51)
[2017-10-09] MEDS ORDERED: Nitroglycerin 1,000 MCG/10 ML VIAL IV ONE (13:52)
--- NOTE | 2017-10-09 14:55 | Pre-Sedation Evaluation ---
Pre-sedation evaluation - Pre-sedation checklist Date of procedure: 10/09/17 Procedure: Heart cath Recent Vitals: Last Vital Signs Temp 98.1 F 10/09/17 10:31 Pulse 76 10/09/17 10:31 Resp 18 10/09/17 10:31 BP 159/73 10/09/17 10:31 Pulse Ox 93 10/09/17 10:31 H&P (including ROS) documented in medical record: Yes Previous reaction to sedatives/anesthetics: No Dietary Status: NPO 6 hours prior to procedure Dentition: No loose teeth or bridges ASA Classification *see protocol: CLASS II-Mild systemic disease Plan of Care: Pt appropriate candidate for procedure/moderate/conscious sedation , Risks/benefits of procedure/sedation discussed w/ patient/family
[2017-10-09] MEDS ORDERED: *HR* FentaNYL (PF) 100 MCG/2 ML VIAL ONE (15:03)
[2017-10-09] MEDS ORDERED: *HR* Midazolam HCl 2 MG/2 ML VIAL ONE ×2 (15:03→15:38)
--- NOTE | 2017-10-09 16:22 | Invasive Diagnostic Lab Proc ---
Name: Fanny Mendiola Date of Study: 10/09/2017 Date: 1935 Ht: 61.8in Medical Record#: [id number] Age: 82 Wt: 167.55lb Gender: Female BSA: 1.77 Order #: [id number] BMI: 30.83 Physicians Procedure Physician: Denny Pro MD, [facility] Referring MD: Referring MD: Staff Name Position Time In Elle Black RN School Photograph Editor 03:06 PM Rudolph Muhammad RN School Photograph Editor 03:07 PM Hali Rojas RT (R) Scrub 03:07 PM Malena Mascorro RN Monitor 03:07 PM Indications Indication Non-Stemi Procedures Performed Procedure L HRT ARTERY/VENTRICLE ANGIO Pre-Procedure Checklist Informed consent is complete signed and on chart. H&P is on chart. ID band is on and ID verified with patient. Patient NPO for procedure The procedure was described for the patient and questions were answered. Blood Pressure: 159/73 ECG is on chart. Plan of Care Patient will tolerate the procedure without complications. Adequate level of comfort will be maintained. Hemodynamics will remain stable Patient will recover from procedure without complications. Respiratory function will be maintained. Cardiac rhythm will remain stable. Patient temperature will be maintained. Patient and/or family have verbalized understanding of the procedure. Patient Education Chief Complaint/Reason for Test: Cardiac Cath Developmental Category: Adult (18-64 years) Developmentally Appropriate for Age: Yes Learning Barriers: None Education Needs: Procedure Education Method: Verbal Information Taught: Cardiac Cath Educational Evaluation: Able to repeat information Intravenous Access Time IV Size Location DC'd Fluid/Drip Rate Units RN 20g 1 08/03" Patent On Arrival Allergies No Known Allergies NO KNOWN DRUG ALLERGIES PHM: Vital Signs Time BP (mmHg) HR (bpm) O2 Sat. RR (bpm) LOC 159 / 73 76 93 % 18 03:04 PM 145 / 129 81 99 % 26 03:09 PM 159 / 103 80 100 % 20 03:15 PM 164 / 88 73 97 % 13 03:20 PM 157 / 87 76 97 % 20 03:25 PM 167 / 84 74 98 % 19 03:30 PM 168 / 88 72 99 % 29 03:35 PM 190 / 102 74 100 % 19 03:40 PM 196 / 82 83 100 % 26 03:45 PM 177 / 96 74 100 % 30 03:50 PM 160 / 121 74 100 % 16 03:55 PM 169 / 83 78 100 % 15 Procedural Medications Time Medication Dose Units Method Given By 03:08 PM Oxygen 2 L/min nasal cannula Rudolph Muhammad RN 03:12 PM Versed 2 mg Intravenous Elle Black RN 03:12 PM Fentanyl 50 mcg Intravenous Elle Black RN 03:34 PM Lidocaine 2% 0.5 ml Subcutaneous Denny Pro MD, FACC 03:38 PM Versed 1 mg Intravenous Rudolph Muhammad RN 03:39 PM Fentanyl 25 mcg Intravenous Rudolph Muhammad RN 03:41 PM Lidocaine 2% 19 ml Subcutaneous Denny Pro MD, FACC 04:12 PM Hydralazine 20 mg Intravenous Elle Black RN ASA Classification: CLASS II- Mild systemic disease (i.e. well-controlled diabetes, hypertension, asthma, cigarette smoking) Ham Score Preprocedure Postprocedure Activity 2- Moves 4 extremities sustained head lift Activity 2- Moves 4 extremities sustained head lift Circulation 2- SBP +/= 20 points of pre-anesthetic level Circulation 2- SBP +/= 20 points of pre-anesthetic level Consciousness 2- Awake and alert oriented x 3 Consciousness 2- Awake and alert oriented x 3 O2 Saturation 2- Able to maintain O2 satruation of 92% on room air O2 Saturation 2- Able to maintain O2 satruation of 92% on room air Respiratory 2- Able to deep breathe and cough well Respiratory 2- Able to deep breathe and cough well Total Score 10 Total Score 10 Contrast Agent: Isovue Diagnostic Contrast: 64 ml Total Contrast: 64 ml Fluoro Dose: 194 mGy Procedure Log Time Note Enter By 02:46 PM CathStat 03:04 PM Vitals capture started with the following parameters, Patient=Adult, Interval=5 min, Initial Haxctvde=980 mmHg, Deflation Rate=5 mmHg, Cuff placed on Right Arm 03:04 PM HR=81 bpm, VKTF=979/129 mmhg, SpO2=99.0 %, Resp=26 B/min 03:06 PM Pt arrived to laboratory apparatus glass grinder 2 [facility]:06 [facility] Elle Black RN Position: School Photograph Editor Time in: 15:06 [place] 03:07 PM Rudolph Muhammad RN Position: School Photograph Editor Time in: 15:07 [place] 03:07 PM Hali Rojas RT (R) Position: Scrub [facility]: 15:07 [facility] PM Malena Mascorro RN Position: Monitor Time in: 15:07 [facility] 03[facility] PM Patient charges- Angio tray pack, Navilyst 3mm J, Pulse Oximetry and ACIST tubing [facility] 03:07 PM Case Delayed No [facility] 03:08 PM Hair removed from procedure site in procedure lab using clippers. Right wrist & right groin prepped with Chloraprep by Elle Black RN, then patient was draped. Skin intact. [facility] 03:08 PM Physican paged/called 15:08. [facility] 03:08 PM Physicjj responded and notified patient is ready 15:08 [facility] 03:08 PM Physician arrived 15:08 [facility] 03:08 PM Meet and greet completed [facility] 03:08 PM Sign in performed according to hospital policy. [facility] 03:08 PM Procedure start 15:08 [facility] PM Time: 15:08 Oxygen on at 2 L/min per nasal cannula by Rudolph Muhammad RN [facility] 03:08 PM Recorded ECG: HR=79 Condition=Condition 1 03:09 PM HR=80 bpm, VFMB=180/103 mmhg, ZbU3=797.0 %, Resp=20 B/min 03:12 PM Time: 15:12 Versed 2 mg Intravenous Given by Elle Black RN 03:12 PM Time: 15:12 Fentanyl 50 mcg Intravenous Given by Elle Black RN 03:15 PM HR=73 bpm, FOZC=469/88 mmhg, SpO2=97.0 %, Resp=13 B/min 03:15 PM Pressure channel 1 zeroed. 03:17 PM ASA Class CLASS II- Mild systemic disease (i.e. well-controlled diabetes, hypertension, asthma, cigarette smoking) bertha 03:20 PM HR=76 bpm, NVNY=684/87 mmhg, SpO2=97.0 %, Resp=20 B/min 03:25 PM HR=74 bpm, WYJC=967/84 mmhg, SpO2=98.0 %, Resp=19 B/min 03:30 PM HR=72 bpm, HFVR=529/88 mmhg, SpO2=99.0 %, Resp=29 B/min 03:34 PM Clinical Presentation: Non-STEMI [facility] 03:34 PM Time out performed according to hospital policy 03:34 PM Time: 15:34 0.5 ml Lidocaine 2% to right radial Subcutaneous Given by Denny Pro MD, [facility] 03:35 PM HR=74 bpm, ESJI=705/102 mmhg, NcA8=334.0 %, Resp=19 B/min 03:37 PM ultrasound utilized for sheath placement in right radial. 03:39 PM Time: 15:38 Versed 1 mg Intravenous Given by Rudolph Muhammad RN 03:39 PM Time: 15:39 Fentanyl 25 mcg Intravenous Given by Rudolph Muhammad RN [facility] 03:40 PM Unsuccessful access attempt # 1 into the right Radial artery. Manual pressure applied to achieve hemostasis.. 03:40 PM HR=83 bpm, LQFR=874/82 mmhg, JlD8=601.0 %, Resp=26 B/min 03:44 PM Time: 15:41 19 ml Lidocaine 2% to right groin Subcutaneous Given by Denny Pro MD, [facility] 03:45 PM Access obtained by percutaneous puncture. 5Fr 10cm Terumo [place] sheath placed in right Femoral artery. [id number] mm 03:45 PM HR=74 bpm, DMNO=432/96 mmhg, CaN8=777.0 %, Resp=30 B/min 03:45 PM 5Fr FR 4 catheter inserted over the wire [facility] 03:46 PM Wire removed mm 03:46 PM RCA angiography performed in multiple views. mm 03:46 PM Recorded Pressure: Ao, HR=75, Condition=Condition 1 (Aorta) Ao 148/87/116 03:46 PM wire reinserted mm 03:46 PM Catheter removed [facility] 03:47 PM 5Fr FL 4 catheter inserted over the wire [facility] 03:47 PM [facility] 03:47 PM LCA angiography performed in multiple views. 03:48 PM Recorded Pressure: Ao, HR=77, Condition=Condition 1 (Aorta) Ao 158/86/117 03:50 PM HR=74 bpm, ZKPY=262/121 mmhg, OxV8=277.0 %, Resp=16 B/min 03:52 PM wire reinserted 03:52 PM 5Fr Pigtail catheter inserted over the wire [facility] 03:52 PM Recorded Pressure: LV, HR=84, Condition=Condition 1 (Left Ventricle) LV 160/11/14 03:53 PM wire removed 03:53 PM Catheter selectively placed in left ventricle tsou 03:54 PM Recorded Pressure: LV, Ao, HR=78, Condition=Condition 1 (Left Ventricle) LV 158/34/56, (Aorta) Ao 190/82/122 03:55 PM HR=78 bpm, WVYR=350/83 mmhg, YjT4=097.0 %, Resp=15 B/min 03:55 PM Bolus angiogram of left Ventricle complete: 10 ml/sec for a total of 20 mls oumm 03:55 PM Catheter removed 03:55 PM Bolus angiogram of right Femoral complete: 2 ml/sec for a total of 4 mls tsoumm 03:55 PM Procedure completed at 15:55 03:56 PM Sign out completed: Radiation Dose 194.05 mGy Fluoro Time: 1.9 Isovue 370 - 200ml contrast 67 ml given by Denny Pro MD, [facility]. Complications: NoneCardiac Rehab Consult needed: NoConfirmed administered medications: Yes mm 03:56 PM Isovue 370 - 200ml,1 Bottle(s) used. tsoumm 03:57 PM Arterial sheath pulled, Mynx closure device attempted use, unsuccessful, manual pressure held x 15 [id number] S/N. mm 03:57 PM Estimated Blood Loss: minimal tsoumm 03:57 PM Post ECG NSR W pvc'S tsoumm 03:57 PM Post Blood Pressure 169/83 tsoummers 03:57 PM Information taught Cardiac Cath tsoumm 03:58 PM Education needs Procedure, Plan of Care, and Responsibilities of Patient in Care tsoummers 03:58 PM Learning barriers :None tsoummers 03:58 PM Education Methods Verbal tsoummers 03:58 PM Education evaluation Able to repeat information tsoummers 03:58 PM Site status No bleeding/hematoma - Rt Groin as reported by Sites, Hali RT (R) at 15:58 tsoummers 03:58 PM Opsite applied oummers 03:58 PM Plavix, Effient or Brilinta given No tsoummers 03:58 PM Delay to floor No tsoummers 03:58 PM Family placed in consult room. tsoummers 03:58 PM Complications: None tsoummers 03:58 PM Fluoro Time: 1.9 tsoummers 03:58 PM Isovue 370 - 200ml contrast [address] PRO. oummers 03:58 PM Radiation Dose 194.05 mGy oummers 03:59 PM Arterial sheath pulled using manual compression and V+ Pad for 15 minutes by Sites, Hali RT (R) oummers 03:59 PM Coronary Dominance: right tsoummers 04:00 PM Lesion found in Proximal RCA. Pre Stenosis: 70 Pre GRACIELA Flow: tsoummers 04:00 PM Lesion found in Mid RCA. Pre Stenosis: 95 Pre GRACIELA Flow: tsoummers 04:02 PM Lesion found in Distal RCA. Pre Stenosis: 100 Pre GRACIELA Flow: tsoummers 04:02 PM Lesion found in Mid LAD. Pre Stenosis: 50 Pre GRACIELA Flow: tsoummers 04:02 PM Lesion found in 1st Diagonal. Pre Stenosis: 60 Pre GRACIELA Flow: tsoummers 04:02 PM Mid/Distal Left Anterior Descending Coronary Artery and diagonal branches with 60% stenosis. If graft is supplying this area, 0 % stenosis tsoummers 04:02 PM Right Coronary, Right Posterior Descending Arteries with Right Posterolateral and Acute Marginal branches with 100 % stenosis. If graft is supplying this area, 0 % stenosis tsoummers 04:03 PM Report given to Noy HYDE Pt taken to 2A Room #36. 16:03 tsoummers 04:08 PM 16:08 Post Pulses Bilateral DP & PT 2+ tsoummers 04:12 PM Time: 16:12 Hydralazine 20 mg Intravenous Given by Elle Black RN 04:15 PM Site status No bleeding/hematoma - Rt Groin as reported by Sites, Hali RT (R) at 16:15 tsoummers 04:15 PM Opsite applied tsoummers 04:15 PM Patient out of room: 16:15 [email or web address] Complications Complication None Hemodynamics Pressures Site Systolic/A Wave Diastolic/V Wave Mean AO 148 87 116 AO 158 86 117 LV 160 11 14 LV 158 34 56 AO 190 82 122 Post Procedure Information Blood Pressure: 169/83 mmHg Rhythm: NSR W pvc'S Post procedural instructions were given Closure Device Time Device Success/Fail 10/09/2017 3:59:00 PM Manual Compression Successful Site Checks Time Location Status Staff Sheath In? Note 03:58 PM Rt Groin No bleeding/hematoma Sites, Hali RT (R) 04:15 PM Rt Groin No bleeding/hematoma Sites, Hali RT (R) Pulses Time Site Pre-Procedure Post-Procedure Note Bilateral DP & PT 1+ Bilateral radial 2+ 4:08:00 PM Bilateral DP & PT 2+ Updated by Malena Mascorro RN on 10/09/2017 4:16:39 PM electronically signed on 10/09/2017 4:17:08 PM with status of Final
--- NOTE | 2017-10-09 16:27 | Event Note ---
Date of Encounter: 10/09/17 Time of Encounter: 16:20 - Cardiology Event Note Stable CAD, no revasc. indicated RCA ORDER DESK CALLER with collaterals, otherwise moderate disease.
--- NOTE | 2017-10-09 16:57 | Internal Med Progress Note ---
Date of Encounter: 10/09/17 Time of Encounter: 11:30 - Assessment and plan (1) Chest pain Current Visit: Yes Status: Acute Assessment and plan: Elevated Trop @ 0.08 high risk for ACS Card scheduled the pt for [facility] today Cont ASA + Plavix + Statin + Coreg Qualifiers: Chest pain type: chest pain due to myocardial ischemia Ischemic chest pain type: stable angina pectoris Qualified Code(s): I20.8 - Other forms of angina pectoris (2) Elevated troponin Current Visit: Yes Status: Acute Assessment and plan: see above (3) Hypertensive emergency Current Visit: Yes Status: Acute Assessment and plan: BP was in 200's y/d Today little better Resumed all her home meds including Coreg + Cardizem + Imdur (4) CAD (coronary artery disease) Current Visit: Yes Status: Chronic Assessment and plan: resumed all home meds Qualifiers: Coronary Disease-Associated Artery/Lesion type: unspecified vessel or lesion type [place] vs. transplanted heart: unspecified whether [place] or transplanted heart Associated angina: angina presence unspecified Qualified Code(s): I25.10 - Atherosclerotic heart disease of [place] coronary artery without angina pectoris (5) COPD (chronic obstructive pulmonary disease) Current Visit: No Status: Chronic Assessment and plan: not in exacerbation resumed all home regimen Qualifiers: COPD type: unspecified COPD Qualified Code(s): J44.9 - Chronic obstructive pulmonary disease, unspecified (6) Hyperlipidemia Current Visit: No Status: Chronic Assessment and plan: on statin Qualifiers: Hyperlipidemia type: unspecified Qualified Code(s): E78.5 - Hyperlipidemia , unspecified - Subjective Interval history: Ms. Mendiola is an 82-year-old female with a past medical history of asthma, COPD, CAD, GERD, HLD, HTN, [place], PE and cholecystectomy admitted from the emergency department for chest pain. Pt denied any CP now. Denied any SOB. Feels better today. Her Trop are elevated at 0.08 - Constitutional Vitals: Temp Pulse Resp BP Pulse Ox 98.1 F 76 18 159/73 93 10/09/17 10:31 10/09/17 10:31 10/09/17 10:31 10/09/17 10:31 10/09/17 10:31 General appearance: Present: cooperative, A&O X 3, pleasant, no acute distress, answers questions appropriately - Head Head exam: Present: atraumatic, normal inspection - Neck Neck exam general surgery: Present: supple - Respiratory Respiratory exam: Present: decreased breath sounds. Absent: rales, respiratory distress, rhonchi, wheezes - Cardiovascular Cardiovascular exam: Present: RRR, +S1, +S2. Absent: tachycardia - GI/Abdominal GI/Abdominal exam: Present: normal bowel sounds, soft. Absent: rebound, rigid, tenderness - Extremities Exam Extremities exam: Absent: calf tenderness, pedal edema, tenderness - Back Exam Back exam: Absent: CVA tenderness (L), CVA tenderness (R) - Neurological Exam Neurological exam: Present: alert, oriented X3, no focal deficits - Psychiatric Psychiatric exam: Present: normal affect, normal mood - Skin Skin exam: Absent: rash Internal Medicine: Result - Labs CBC & Chem 7: 10/09/17 03:43 10/09/17 03:43 Labs: Short CBC 10/09/17 Range/Units 03:43 WBC 5.4 (4.3-11.1) K/mcL Hgb 14.4 (11.5-15.4) g/dL Hct 43.1 (35.3-44.9) % Plt Count 167 (140-400) K/mcL Neutrophils # 2.9 (1.6-8.9) K/mcL BMP 10/09/17 03:43 Sodium 132 L Potassium 3.5 Chloride 94 L Carbon Dioxide 30 H BUN 22 Creatinine 0.95 Glucose 106 H Calcium 9.4 Cardiac Enzymes 10/09/17 Range/Units 11:08 Troponin I 0.06 H* (< 0.04) ng/mL Liver Function 10/09/17 Range/Units 03:43 Total Bilirubin 0.8 (0.3-1.0) mg/dL AST 21 (13-39) Units/L ALT 21 (7-52) Units/L Alkaline Phosphatase 82 (34-104) Units/L Albumin 3.8 (3.5-5.7) g/dL - ABG Interpretation ABG results: PT/INR, D-dimer PT 10.3 Seconds (9.4-12.1) 10/09/17 03:43 - Impressions Impressions Chest X-Ray 10/09/17 05:19 IMPRESSION: 1. Cardiomegaly with mild pulmonary vascular congestion. D/ / Richard Wright MD / Richard Wright MD Interpreting Provider: Richard Wright MD Consult Discharge Plan - Plan Referrals: Elizabeth Bautista CNP [Primary Care Provider] -
[2017-10-09] MEDS: Isosorbide MONOnitrate (24 HR) 60 MG TAB.ER.24H PO SCH (18:34)
--- NOTE | 2017-10-09 19:47 | Electrocardiograph Report ---
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
--- NOTE | 2017-10-09 20:02 | Electrocardiograph Report ---
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
--- NOTE | 2017-10-09 20:26 | Electrocardiograph Report ---
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
[2017-10-09] MEDS ORDERED: Ondansetron 4 MG/2 ML VIAL IVP PRN (22:23)
[2017-10-09] MEDS: Fluticasone Propionate Nasal 50 MCG/SPRAY BOTTLE NS SCH (23:02)
[2017-10-10] MEDS: Acetaminophen 325 MG TABLET PO PRN (00:13)
[2017-10-10] MEDS: *HR* Heparin 5,000 UNIT/ML VIAL SQ SCH (05:26)
[2017-10-10 07:48] VITALS: BP 114/71
[2017-10-10] MEDS: Aspirin 81 MG TAB.CHEW PO SCH (08:29)
[2017-10-10] MEDS: Isosorbide MONOnitrate (24 HR) 60 MG TAB.ER.24H PO SCH (08:29)
[2017-10-10] MEDS: Fluticasone Propionate Nasal 50 MCG/SPRAY BOTTLE NS SCH (08:36)
--- NOTE | 2017-10-10 08:38 | Cardiology Progress Note ---
Date of Encounter: 10/10/17 Time of Encounter: 08:00 Assessment and Plan (1) Elevated troponin Current Visit: Yes Status: Acute Troponin negative <0.03, 0.05, 0.06, 0.08 in the setting of severely elevated BP , 243/129. Likely demand ischemia in the setting of severely elevated BP. 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 Recommend [facility] with possible PCI; alternatives, benefits discussed. She is agreeable to proceed, will discuss with Dr. Prescott prior to placing order. Recommend improved control of BP; blood pressures have been controlled overnight. Continue asa, statin, BB (now coreg), and nitrates. No further inpt recommendations, Cardiology will sign-off. Will coordinate outpt. follow-up. (2) Hypertensive emergency Current Visit: Yes Status: Acute BP 243/129 upon presentation. Patient reports medication compliance. Control now improved with coreg--increase if needed. Consider Nephrology evaluation. (3) CAD (coronary artery disease) Current Visit: Yes Status: Chronic Hx of CAD. LHC findings similar as previous, medical therapy recommended. TTE 03/2017: LVEF 60%, mild cLVH, mild LVDD, mild MR, mild segmental LV systolic dysfunction (mid inferior, basal inferior wall hypokinesis). Continue asa, statin, BB, and nitrates. Qualifiers: Coronary Disease-Associated Artery/Lesion type: unspecified vessel or lesion type [place] vs. transplanted heart: unspecified whether [place] or transplanted heart Associated angina: angina presence unspecified Qualified Code(s): I25.10 - Atherosclerotic heart disease of [place] coronary artery without angina pectoris Discussion w patient/family: The assessment and plan as outlined above was discussed with the patient and/or family members who expressed understanding and agreement. All questions were answered. Thank you for involving us in the care of your patient. Please call with any questions. The patient will be discussed and reviewed with Dr. Prescott; changes to be made accordingly. Subjective Principal diagnosis: Accelerated HTN, elevated troponin Interval history: Seen and examined. Reports nausea after [facility] yesterday--now resolved. BP control improved. No issues with cath site. Objective Vital Signs, Last 4 Hours Temp Pulse Resp BP Pulse Ox 10/10/17 07:46 99.1 F 89 18 114/71 98 General: Conversant, No Apparent Distress HEENT: Atraumatic, Normocephaly, Mucus Membranes Moist Cardiac: Reg Rate and Rhythm, Normal S1 and S2 Lungs: Normal Breath Sounds Neuro: Alert and responsive Abdomen: Soft Skin: No rashes noted on visualized skin Musculoskeletal: No Chest Wall Tenderness Extremities: No Edema, Normal Pulses Other: right radial: (attempted LHC site): brisk cap refill, +2 Radial pulses. Dressing removed, no bleeding, hematoma, or oozing at site. right groin: mild amount of soft ecchymosis at site. No bleeding or hematoma. + 2 DP/PT pulses. Results 10/09/17 03:43 10/09/17 03:43 Lab Results 10/09/17 11:08 Troponin I 0.06 H* Active Medications Acetaminophen (Tylenol) 650 mg PO Q6HR PRN PRN Reason: Mild Pain/Fever Stop: 04/09/18 04:18 Last Admin: 10/10/17 00:13 Dose: 650 mg Aspirin (Aspirin) 81 mg PO DAILY [facility] Stop: 04/09/18 09:01 Last Admin: 10/10/17 08:29 Dose: 81 mg Atorvastatin Calcium (Lipitor) 40 mg PO HS [facility]AR Stop: 04/09/18 21:01 Last Admin: 10/09/17 22:13 Dose: 40 mg Carvedilol (Coreg) 6.25 mg PO BIDWM [facility] PRN Reason: Protocol Stop: 04/10/18 10:31 Last Admin: 10/10/17 08:29 Dose: 6.25 mg Clopidogrel Bisulfate (Plavix) 75 mg PO DAILY [facility] Stop: 04/11/18 09:01 Last Admin: 10/10/17 08:29 Dose: 75 mg Diltiazem HCl (Cardizem Cd) 120 mg PO DAILY [facility] Stop: 04/11/18 09:01 Last Admin: 10/10/17 08:29 Dose: 120 mg Docusate Sodium (Colace) 100 mg PO BID PRN; Protocol PRN Reason: Constipation Stop: 04/10/18 12:11 Last Admin: 10/09/17 19:23 Dose: 100 mg Famotidine (Pepcid) 20 mg PO DAILY [facility] Stop: 04/11/18 09:01 Last Admin: 10/10/17 08:29 Dose: 20 mg Fluticasone Propionate (Flonase) 50 mcg NS BID [facility] PRN Reason: Protocol Stop: 04/10/18 21:01 Last Admin: 10/10/17 08:36 Dose: 50 mcg Heparin Sodium (Porcine) (Heparin) 5,000 unit SQ Q12HCO [facility] Stop: 04/09/18 06:01 Last Admin: 10/10/17 05:26 Dose: 5,000 unit Hydralazine HCl (Hydralazine) 10 mg IVP Q6HR PRN PRN Reason: Hypertension Stop: 04/09/18 04:24 Last Admin: 10/09/17 18:29 Dose: 10 mg Isosorbide Mononitrate (Imdur) 60 mg PO DAILY [facility] Stop: 04/10/18 17:01 Last Admin: 10/10/17 08:29 Dose: 60 mg Loratadine (Claritin) 10 mg PO DAILY [facility] PRN Reason: Protocol Stop: 04/11/18 09:01 Last Admin: 10/10/17 08:29 Dose: 10 mg Montelukast Sodium (Singulair) 10 mg PO DAILY [facility] Stop: 04/11/18 09:01 Last Admin: 10/10/17 08:29 Dose: 10 mg Naloxone HCl (Narcan) 0.4 mg IVP Q2MIN PRN PRN Reason: SEE COMMENTS Stop: 04/09/18 04:18 Nitroglycerin (Nitroglycerin) 0.4 mg SL Q5MIN PRN PRN Reason: Chest Pain Stop: 04/09/18 04:24 Omeprazole (Prilosec) 20 mg PO DAILY@0730 [facility] PRN Reason: Protocol Stop: 04/11/18 07:31 Last Admin: 10/10/17 08:29 Dose: 20 mg Ondansetron HCl (Zofran) 4 mg IVP Q8HR PRN; Protocol PRN Reason: Nausea And Vomiting Stop: 04/10/18 22:24 Oxycodone HCl (Roxicodone) 10 mg PO Q6HR PRN PRN Reason: Chest Pain Stop: 04/09/18 04:18 Last Admin: 10/08/17 05:42 Dose: 10 mg Polyethylene Glycol (Miralax) 17 gm PO DAILY [facility] Stop: 04/10/18 12:16 Last Admin: 03/13/18 08:32 Dose: Not Given - Imaging and Cardiology Echo: report reviewed Cardiac cath: report reviewed Other Results: 12 hour tele: avg HR=92 SR. No significant event noted. - EKG Interpretation EKG results cardiology: personally reviewed Consult Discharge Plan - Plan Referrals: Elizabeth Bautista, CLIENT SUPPORT PROFESSIONAL [Primary Care Provider] -
[2017-10-10] MEDS ORDERED: Famotidine 20 MG TABLET PO SCH (09:00)
[2017-10-10] MEDS ORDERED: Diltiazem CD (24hr) 120 MG CAPSULE PO SCH (09:00)
[2017-10-10] MEDS ORDERED: Loratadine 10 MG TABLET PO SCH (09:00)
[2017-10-10] MEDS ORDERED: Metoprolol XL (24 HR) Succ 50 MG TAB.ER.24H PO SCH (09:00)
--- NOTE | 2017-10-10 10:25 | Discharge Summary ---
- NOTES TO OUTPATIENT PROVIDER Notes to Outpatient Provider: f/u with PCP in one week. Stop taking Metoprolol. New medication Coreg started during this hospitlization. your heart cath showed moderate CAD. You have to keep your BP under control. If you get any chest pain please take Nitrol SL and come back to ER right away. Orders not resulted at time of discharge: Pending orders 10/09/17 05:41 Culture,Sputum with Gram Stain [RM] Routine 10/09/17 10:29 CL Cardiac Catheterization [CL] Routine Date of Encounter: 10/10/17 Time of Encounter: 10:25 - Discharge Diagnosis (1) Chest pain Priority: Primary Status: Acute Qualifiers: Chest pain type: chest pain due to myocardial ischemia Ischemic chest pain type: stable angina pectoris Qualified Code(s): I20.8 - Other forms of angina pectoris (2) Elevated troponin Priority: Primary Status: Acute (3) Hypertensive emergency Priority: Primary Status: Acute (4) CAD (coronary artery disease) Priority: Secondary Status: Chronic Qualifiers: Coronary Disease-Associated Artery/Lesion type: unspecified vessel or lesion type [place] vs. transplanted heart: unspecified whether [place] or transplanted heart Associated angina: angina presence unspecified Qualified Code(s): I25.10 - Atherosclerotic heart disease of [place] coronary artery without angina pectoris (5) COPD (chronic obstructive pulmonary disease) Priority: Secondary Status: Chronic Qualifiers: COPD type: unspecified COPD Qualified Code(s): J44.9 - Chronic obstructive pulmonary disease, unspecified (6) Hyperlipidemia Priority: Secondary Status: Chronic Qualifiers: Hyperlipidemia type: unspecified Qualified Code(s): E78.5 - Hyperlipidemia , unspecified Hospital course: Ms. Mendiola is an 82-year-old female with a past medical history of asthma, COPD, CAD, GERD, HLD, HTN, [place], PE and cholecystectomy admitted from the emergency department for chest pain. Pt was admitted in the hospital, placed her on competitive intelligence analyst, and checked serial troponin which were slightly elevated with peak @ 0.08. Pt was evaluated by [employer] and did LHC. 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 Initially her BP in 200' s now well controlled with her home PO meds. Only change d/c Metoprolol and started on Coreg here. - Time Spent with Patient Total time spent providing and/or coordinating discharge services: - Discharge Medications Home Medications: Fluticasone Propionate Nasal [Flonase] 50 mcg NS BID 09/14/16 [History] Isosorbide MONOnitrate (24 HR) [Imdur] 60 mg PO DAILY 09/14/16 [History] Loratadine [Claritin] 10 mg PO DAILY 09/14/16 [History] Nitroglycerin 0.4 mg SL Q5MIN PRN 09/14/16 [History] Omeprazole [PriLOSEC] 20 mg PO DAILY 09/14/16 [History] Montelukast [Singulair] 10 mg PO DAILY 04/20/17 [History] Atorvastatin [Lipitor] 40 mg PO HS #30 tablet 04/23/17 [Rx] Clopidogrel [Plavix] 75 mg PO DAILY #30 tablet 04/23/17 [Rx] Diltiazem CD (24hr) [Cardizem CD] 120 mg PO DAILY #30 cap.er.24h 04/23/17 [Rx] Valsartan [Diovan] 80 mg PO BID #60 tablet 04/23/17 [Rx] hydroCHLOROthiazide [Hydrochlorothiazide] 25 mg PO DAILY #30 tablet 04/23/17 [Rx ] Budesonide/Formoterol 160/4.5 [Symbicort 160/4.5] 2 puff IH BID 10/08/17 [ History] Ranitidine HCl [Acid Catering Driver] 150 mg PO DAILY 10/08/17 [History] Aspirin 81 mg PO DAILY tab.chew 10/10/17 [Rx] Carvedilol [Coreg] 6.25 mg PO BIDWM #60 tablet 10/10/17 [Rx] Allergies/Adverse Reactions: 3 Allergy/AdvReac Type Severity Reaction Status Date / Time No Known Allergies Allergy Verified 10/08/17 13:09 Date of admission: 10/08/17 01:13 Primary care physician: Elizabeth Bautista CNP Consults: 10/09/17 09:08 Consult to Cardiology [CONS] Routine Comment: Consulting Provider: [facility] [place] Reason for Consult: Chest pain Time Notified: 09:08 Call Completed: Yes - Constitutional Vitals: Temp Pulse Resp BP Pulse Ox 99.1 F 89 18 114/71 98 10/10/17 07:46 10/10/17 07:46 10/10/17 07:46 10/10/17 07:46 10/10/17 07:46 General appearance: Present: cooperative, A&O X 3, pleasant, no acute distress, answers questions appropriately - Head Head exam: Present: atraumatic, normal inspection - Neck Neck exam general surgery: Present: supple - Respiratory Respiratory exam: Present: decreased breath sounds. Absent: rales, respiratory distress, rhonchi, wheezes - Cardiovascular Cardiovascular exam: Present: RRR, +S1, +S2. Absent: tachycardia - GI/Abdominal GI/Abdominal exam: Present: normal bowel sounds, soft. Absent: rebound, rigid, tenderness - Extremities Exam Extremities exam: Absent: calf tenderness, pedal edema, tenderness - Back Exam Back exam: Absent: CVA tenderness (L), CVA tenderness (R) - Neurological Exam Neurological exam: Present: alert, oriented X3 - Psychiatric Psychiatric exam: Present: normal affect, normal mood - Patient Status Disposition: Home, Self-Care Condition: Good Overall status at discharge: patient is back to baseline - Discharge Instructions Follow Up With: Elizabeth Bautista CNC MAINTENANCE TECHNICIAN [Primary Care Provider] - - Diet and Activity Activity: increase activity as tolerated Diet: low fat, low cholesterol
== END 2017-10-10 12:05 | disposition home or self-care (01) ==
LOC: 2ANU 21:32 → EMEROO 21:32 → 2ANU 10-08 01:36
PROVIDERS: ADMIT Pediatrics; ATTEND Internal Medicine

== ENCOUNTER 2019-06-18 15:35 | Observation (INO) ==
[2019-06-18] MEDS ORDERED: methylPREDNISolone 125 MG/2 ML VIAL IVP ONE (16:48)
[2019-06-18] MEDS ORDERED: Ipratropium/Albuterol Neb 3 ML IH ONE (16:48)
[2019-06-18 16:53] LABS: Basophils % 0.2 %; Eosinophils % 0.1 %; Hematocrit 36.7 % (35.3-44.9); Hemoglobin 12.5 g/dL (11.5-15.4); Immature Granulocytes % 0.6 % (0-4); Lymphocytes # 1.2 K/mcL (0.6-4.6); Lymphocytes % 5.9 %; Mean Corpuscular HGB Conc 34.1 g/dL (31.6-35.5); Mean Corpuscular Hemoglobin 31.5 pg (28.0-33.3); Mean Corpuscular Volume 92.4 fL (83.0-100.0); Mean Platelet Volume 9.6 fL (9.4-12.4); Monocytes # 1.3 K/mcL (0.0-1.3); Monocytes % 6.5 %; Neutrophils # 17.1 K/mcL (1.6-8.9); Platelet Count 236 K/mcL (140-400); Red Blood Count 3.97 M/mcL (3.82-4.97); Red Cell Distribution Width 13.2 % (11.5-14.5); Segmented Neutrophils % 86.7 %; White Blood Count 19.7 K/mcL (4.3-11.1)
[2019-06-18 17:15] LABS: BUN/Creatinine Ratio 25 (6-26); Blood Urea Nitrogen 25 mg/dL (8-23); Calcium 9.9 mg/dL (8.6-10.3); Carbon Dioxide 27 mEq/L (23-29); Chloride 98 mEq/L (98-107); Glucose 116 mg/dL (70-105); Osmolality,Calculated 287 (280-300); Potassium 3.5 mEq/L (3.5-5.1); Sodium 136 mEq/L (136-145); Troponin I 0.03 ng/mL (< 0.04); eGFR For African Americans > 60 (> 60); eGFR For Non-African Americans 53 (> 60)
[2019-06-18] MEDS ORDERED: cefTRIAXone 1,000 MG in 0.9 % Sodium Chloride Mini Bag 100 ML IVPB ONE (17:56)
[2019-06-18] MEDS ORDERED: Azithromycin 500 MG in 0.9 % Sodium Chloride 250 ML IVPB ONE (17:56)
[2019-06-18] MEDS ORDERED: Ondansetron 4 MG/2 ML VIAL IVP ONE (17:57)
[2019-06-18] MEDS ORDERED: Isovue-370 500 ML BOTTLE IVP ONE (17:59)
[2019-06-18] MEDS ORDERED: Azithromycin 500 MG in D5% in Water 250 ML IVPB SCH (18:00)
[2019-06-18] MEDS ORDERED: 0.9 % Sodium Chloride 250 ML IV ONE (18:02)
[2019-06-18] MEDS ORDERED: cefTRIAXone 1,000 MG in Water for inj. (sterile) 10 ML IVP ONE (18:15)
[2019-06-18] MEDS ORDERED: Ringers Solution, Lactated 1,000 ML IVC SCH ×2 (20:45→22:00)
[2019-06-18] MEDS ORDERED: Ondansetron 4 MG/2 ML VIAL IVP PRN (20:45)
[2019-06-18] MEDS ORDERED: Acetaminophen 325 MG TABLET PO PRN (20:45)
[2019-06-18] MEDS ORDERED: GuaiFENesin Liq 200 MG/10 ML UDC PO PRN (21:58)
[2019-06-18] MEDS: Ipratropium/Albuterol Neb 3 ML IH SCH (23:54)
[2019-06-19] MEDS: *HR* Heparin 5,000 UNIT/ML VIAL SQ SCH ×4 (00:09→21:22)
[2019-06-19] MEDS: Ipratropium/Albuterol Neb 3 ML IH SCH ×5 (03:35→19:59)
[2019-06-19 05:53] LABS: Basophils % 0.1 %; Hematocrit 34.3 % (35.3-44.9); Hemoglobin 11.7 g/dL (11.5-15.4); Immature Granulocytes % 0.3 % (0-4); Lymphocytes % 7.7 %; Mean Corpuscular HGB Conc 34.1 g/dL (31.6-35.5); Mean Corpuscular Hemoglobin 31.3 pg (28.0-33.3); Mean Corpuscular Volume 91.7 fL (83.0-100.0); Mean Platelet Volume 9.7 fL (9.4-12.4); Monocytes # 0.2 K/mcL (0.0-1.3); Monocytes % 1.5 %; Neutrophils # 11.1 K/mcL (1.6-8.9); Platelet Count 200 K/mcL (140-400); Red Blood Count 3.74 M/mcL (3.82-4.97); Red Cell Distribution Width 13.3 % (11.5-14.5); Segmented Neutrophils % 90.4 %; White Blood Count 12.3 K/mcL (4.3-11.1)
[2019-06-19] MEDS ORDERED: levETIRAcetam 250 MG TABLET PO SCH (06:00)
[2019-06-19 06:15] LABS: BUN/Creatinine Ratio 32 (6-26); Blood Urea Nitrogen 22 mg/dL (8-23); Calcium 9.3 mg/dL (8.6-10.3); Carbon Dioxide 25 mEq/L (23-29); Chloride 101 mEq/L (98-107); Glucose 176 mg/dL (70-105); Magnesium 1.6 mg/dL (1.6-2.6); Osmolality,Calculated 292 (280-300); Phosphorous 3.1 mg/dL (2.7-4.5); Potassium 3.1 mEq/L (3.5-5.1); Sodium 137 mEq/L (136-145); eGFR For African Americans > 60 (> 60); eGFR For Non-African Americans > 60 (> 60)
[2019-06-19] MEDS ORDERED: Potassium Chloride Elixir 20 MEQ/15 ML UDC PO ONE (06:28)
[2019-06-19] MEDS: Furosemide 20 MG TABLET PO SCH ×2 (07:53→16:57)
[2019-06-19] MEDS ORDERED: Isosorbide MONOnitrate (24 HR) 60 MG TAB.ER.24H PO SCH (09:00)
[2019-06-19] MEDS ORDERED: Azithromycin 500 MG in 0.9 % Sodium Chloride 250 ML IVPB SCH (09:00)
[2019-06-19] MEDS ORDERED: cefTRIAXone 1,000 MG in 0.9 % Sodium Chloride Mini Bag 100 ML IVPB SCH (09:00)
[2019-06-19] MEDS ORDERED: Aspirin 81 MG TAB.CHEW PO SCH (09:00)
[2019-06-19] MEDS ORDERED: predniSONE 20 MG TABLET PO SCH (09:00)
[2019-06-19] MEDS ORDERED: cefTRIAXone 1,000 MG in Water for inj. (sterile) 10 ML IVPB SCH (09:00)
[2019-06-19] MEDS ORDERED: Valsartan 80 MG TABLET PO SCH (09:00)
[2019-06-19] MEDS ORDERED: hydroCHLOROthiazide 25 MG TABLET PO PRN (15:15)
[2019-06-19] MEDS ORDERED: Loratadine 10 MG TABLET PO PRN (15:15)
[2019-06-19] MEDS ORDERED: *HR* LORazepam 0.5 MG TABLET PO PRN (15:15)
[2019-06-19] MEDS ORDERED: Melatonin 3 MG TABLET PO PRN (20:54)
[2019-06-20] MEDS: Ipratropium/Albuterol Neb 3 ML IH SCH ×4 (00:07→11:08)
[2019-06-20 05:12] VITALS: BP 154/64
[2019-06-20] MEDS: *HR* Heparin 5,000 UNIT/ML VIAL SQ SCH (05:55)
[2019-06-20 06:18] LABS: Basophils % 0.1 %; Hemoglobin 11.6 g/dL (11.5-15.4); Immature Granulocytes % 0.6 % (0-4); Lymphocytes # 1.6 K/mcL (0.6-4.6); Lymphocytes % 15.1 %; Mean Corpuscular HGB Conc 34.1 g/dL (31.6-35.5); Mean Corpuscular Hemoglobin 30.9 pg (28.0-33.3); Mean Corpuscular Volume 90.4 fL (83.0-100.0); Mean Platelet Volume 9.8 fL (9.4-12.4); Monocytes # 0.9 K/mcL (0.0-1.3); Monocytes % 8.4 %; Platelet Count 214 K/mcL (140-400); Red Blood Count 3.76 M/mcL (3.82-4.97); Red Cell Distribution Width 13.9 % (11.5-14.5); Segmented Neutrophils % 75.8 %; White Blood Count 10.5 K/mcL (4.3-11.1)
[2019-06-20 07:04] LABS: BUN/Creatinine Ratio 32 (6-26); Blood Urea Nitrogen 22 mg/dL (8-23); Calcium 9.3 mg/dL (8.6-10.3); Carbon Dioxide 25 mEq/L (23-29); Chloride 103 mEq/L (98-107); Glucose 116 mg/dL (70-105); Magnesium 1.8 mg/dL (1.6-2.6); Osmolality,Calculated 292 (280-300); Potassium 4.1 mEq/L (3.5-5.1); Sodium 139 mEq/L (136-145); eGFR For African Americans > 60 (> 60); eGFR For Non-African Americans > 60 (> 60)
[2019-06-20] MEDS ORDERED: Azithromycin 250 MG TABLET PO SCH (09:00)
[2019-06-20] MEDS ORDERED: Isosorbide MONOnitrate (24 HR) 60 MG TAB.ER.24H PO SCH (09:00)
[2019-06-20] MEDS ORDERED: Famotidine 20 MG TABLET PO SCH (09:00)
[2019-06-20] MEDS ORDERED: amLODIPine 5 MG TABLET PO SCH (09:00)
== END 2019-06-20 11:33 | disposition home or self-care (01) ==
LOC: 2ANU 15:35 → EMEROOARM 15:35 → SUATTDRO 22:04 → 2ANU 22:54
PROVIDERS: ADMIT Internal Medicine; ATTEND Pharmacist

== ENCOUNTER 2020-08-18 15:24 | Observation (INO) ==
[2020-08-18] MEDS ORDERED: Aspirin 81 MG TAB.CHEW PO ONE (16:30)
[2020-08-18] MEDS ORDERED: Isovue-370 500 ML BOTTLE IVP ONE (16:38)
[2020-08-18 17:15] LABS: Basophils % 0.1 %; Eosinophils % 0.4 %; Hematocrit 33.3 % (35.3-44.9); Hemoglobin 10.8 g/dL (11.5-15.4); INR 2.8; Immature Granulocytes % 0.3 % (0-4); Lymphocytes # 1.7 K/mcL (0.6-4.6); Lymphocytes % 25.3 %; Mean Corpuscular HGB Conc 32.4 g/dL (31.6-35.5); Mean Corpuscular Hemoglobin 30.2 pg (28.0-33.3); Mean Platelet Volume 10.1 fL (9.4-12.4); Monocytes # 0.7 K/mcL (0.0-1.3); Monocytes % 10.2 %; Neutrophils # 4.4 K/mcL (1.6-8.9); Platelet Count 220 K/mcL (140-400); Prothrombin Time 31.5 Seconds (9.4-12.1); Red Blood Count 3.58 M/mcL (3.82-4.97); Red Cell Distribution Width 12.3 % (11.5-14.5); Segmented Neutrophils % 63.7 %; White Blood Count 6.9 K/mcL (4.3-11.1)
[2020-08-18 17:43] LABS: BUN/Creatinine Ratio 30 (6-26); Blood Urea Nitrogen 20 mg/dL (8-23); Calcium 9.2 mg/dL (8.6-10.3); Carbon Dioxide 28 mEq/L (23-29); Chloride 102 mEq/L (98-107); Glucose 112 mg/dL (70-105); Osmolality,Calculated 287 (280-300); Potassium 3.8 mEq/L (3.5-5.1); Sodium 137 mEq/L (136-145); Troponin I < 0.03 ng/mL (< 0.04); eGFR For African Americans > 60 (> 60); eGFR For Non-African Americans > 60 (> 60)
[2020-08-18 18:00] LABS: Adenovirus Not Detected (Not Detect); Bordetella Pertussis Not Detected (Not Detect); Chlamydophila pneumoniae Not Detected (Not Detect); Coronavirus 229E Not Detected (Not Detect); Coronavirus HKU1 Not Detected (Not Detect); Coronavirus NL63 Not Detected (Not Detect); Coronavirus OC43 Not Detected (Not Detect); Human Metapneumovirus Not Detected (Not Detect); Human Rhinovirus/Enterovirus Not Detected (Not Detect); Influenza A Subtype 2009 H1 Not Detected (Not Detect); Influenza B Not Detected (Not Detect); Mycoplasma pneumoniae Not Detected (Not Detect); Parainfluenza Virus 1 Not Detected (Not Detect); Parainfluenza Virus 2 Not Detected (Not Detect); Parainfluenza Virus 3 Not Detected (Not Detect); Parainfluenza Virus 4 Not Detected (Not Detect); Respiratory Syncytial Virus Not Detected (Not Detect)
[2020-08-18 18:02] LABS: SARS-CoV-2 DETECTED (Not Detect)
[2020-08-18] MEDS ORDERED: Furosemide 40 MG/4 ML VIAL IVP ONE (18:04)
[2020-08-18] MEDS ORDERED: Azithromycin 500 MG in 0.9 % Sodium Chloride 250 ML IVPB ONE (19:28)
[2020-08-18] MEDS ORDERED: cefTRIAXone 1,000 MG in Water for inj. (sterile) 10 ML IVP ONE (19:28)
[2020-08-18] MEDS ORDERED: Naloxone 0.4 MG/ML INJ IVP PRN (21:28)
[2020-08-18] MEDS ORDERED: Acetaminophen 325 MG TABLET PO PRN (21:44)
[2020-08-18] MEDS ORDERED: Ondansetron 4 MG/2 ML VIAL IVP PRN (21:44)
[2020-08-19] MEDS ORDERED: Loratadine 10 MG TABLET PO PRN (01:26)
[2020-08-19] MEDS ORDERED: *HR* LORazepam 0.5 MG TABLET PO PRN (01:26)
[2020-08-19] MEDS ORDERED: GI Cocktail 40 ML EACH PO ONE (01:29)
[2020-08-19 04:22] LABS: Basophils % 0.2 %; Eosinophils % 0.3 %; Hematocrit 33.3 % (35.3-44.9); Hemoglobin 10.7 g/dL (11.5-15.4); Immature Granulocytes % 0.5 % (0-4); Lymphocytes # 1.8 K/mcL (0.6-4.6); Lymphocytes % 30.1 %; Mean Corpuscular HGB Conc 32.1 g/dL (31.6-35.5); Mean Corpuscular Volume 93.3 fL (83.0-100.0); Mean Platelet Volume 9.9 fL (9.4-12.4); Monocytes # 0.7 K/mcL (0.0-1.3); Monocytes % 11.1 %; Neutrophils # 3.5 K/mcL (1.6-8.9); Platelet Count 196 K/mcL (140-400); Red Blood Count 3.57 M/mcL (3.82-4.97); Red Cell Distribution Width 12.3 % (11.5-14.5); Segmented Neutrophils % 57.8 %; White Blood Count 6.1 K/mcL (4.3-11.1)
[2020-08-19 04:30] LABS: INR 1.7; Prothrombin Time 19.2 Seconds (9.4-12.1)
[2020-08-19 04:43] LABS: Alanine Aminotransferase 17 Units/L (7-52); Albumin 3.3 g/dL (3.5-5.7); Albumin/Globulin Ratio 1.3 (1.1-2.2); Alkaline Phosphatase 65 Units/L (34-104); Aspartate Amino Transferase 17 Units/L (13-39); BUN/Creatinine Ratio 21 (6-26); Bilirubin,Total 0.5 mg/dL (0.3-1.0); Blood Urea Nitrogen 15 mg/dL (8-23); C-Reactive Protein 28 mg/L (Less than 10); Calcium 8.5 mg/dL (8.6-10.3); Carbon Dioxide 31 mEq/L (23-29); Chloride 102 mEq/L (98-107); Cholesterol 71 mg/dL (< 200); Globulin 2.5 g/dL (2.4-3.5); Glucose 99 mg/dL (70-105); HDL Cholesterol 36 mg/dL (40-59); LDL Cholesterol,Calculated 22 mg/dL (< 100); Lactate Dehydrogenase 165 Units/L (140-271); Magnesium 1.7 mg/dL (1.6-2.6); Osmolality,Calculated 291 (280-300); Phosphorous 3.3 mg/dL (2.7-4.5); Potassium 3.2 mEq/L (3.5-5.1); Sodium 140 mEq/L (136-145); Total Protein 5.8 g/dL (6.4-8.9); Triglycerides 66 mg/dL (< 150); eGFR For African Americans > 60 (> 60); eGFR For Non-African Americans > 60 (> 60)
[2020-08-19 05:01] LABS: Ferritin 81 ng/mL (10-120)
[2020-08-19] MEDS ORDERED: *HR* Enoxaparin 40 MG/0.4 ML SYRINGE SQ SCH (06:00)
[2020-08-19] MEDS: carvediloL 6.25 MG TABLET PO SCH ×2 (08:36→16:29)
[2020-08-19] MEDS: Isosorbide MONOnitrate (24 HR) 60 MG TAB.ER.24H PO SCH (08:36)
[2020-08-19] MEDS: Aspirin Enteric Coated 81 MG Tablet PO SCH (08:36)
[2020-08-19] MEDS: Famotidine 20 MG TABLET PO SCH (08:37)
[2020-08-19] MEDS: Valsartan 80 MG TABLET PO SCH (08:37)
[2020-08-19] MEDS: Dexamethasone Sodium Phos/PF 10 MG/ML VIAL IVP SCH (08:38)
[2020-08-19] MEDS: Sucralfate 1 GM TABLET PO SCH ×4 (08:38→20:01)
[2020-08-19] MEDS: amLODIPine 5 MG TABLET PO SCH (08:45)
[2020-08-19] MEDS: Gabapentin 300 MG CAPSULE PO SCH ×3 (08:45→20:01)
[2020-08-19] MEDS ORDERED: *HR* Rivaroxaban 10 MG TABLET PO SCH (17:00)
[2020-08-19] MEDS: Furosemide 20 MG/2 ML VIAL IVP SCH (20:01)
[2020-08-20 05:29] LABS: BUN/Creatinine Ratio 26 (6-26); Blood Urea Nitrogen 17 mg/dL (8-23); Calcium 8.5 mg/dL (8.6-10.3); Carbon Dioxide 31 mEq/L (23-29); Chloride 101 mEq/L (98-107); Glucose 141 mg/dL (70-105); Magnesium 1.9 mg/dL (1.6-2.6); Osmolality,Calculated 290 (280-300); Phosphorous 2.6 mg/dL (2.7-4.5); Potassium 3.9 mEq/L (3.5-5.1); Sodium 138 mEq/L (136-145); eGFR For African Americans > 60 (> 60); eGFR For Non-African Americans > 60 (> 60)
[2020-08-20] MEDS: carvediloL 6.25 MG TABLET PO SCH (07:51)
[2020-08-20] MEDS: Valsartan 80 MG TABLET PO SCH (07:51)
[2020-08-20] MEDS: amLODIPine 5 MG TABLET PO SCH (07:51)
[2020-08-20] MEDS: Aspirin Enteric Coated 81 MG Tablet PO SCH (07:51)
[2020-08-20] MEDS: Isosorbide MONOnitrate (24 HR) 60 MG TAB.ER.24H PO SCH (07:52)
[2020-08-20] MEDS: Sucralfate 1 GM TABLET PO SCH ×2 (07:53→11:43)
[2020-08-20] MEDS: Dexamethasone Sodium Phos/PF 10 MG/ML VIAL IVP SCH (07:53)
[2020-08-20] MEDS: Famotidine 20 MG TABLET PO SCH (07:53)
[2020-08-20] MEDS: Gabapentin 300 MG CAPSULE PO SCH ×2 (07:53→14:36)
[2020-08-20] MEDS: Furosemide 20 MG/2 ML VIAL IVP SCH (07:54)
[2020-08-20 10:19] VITALS: BP 141/79
== END 2020-08-20 15:00 | disposition home or self-care (01) ==
LOC: 2NENU 15:24 → EMEROOARM 15:24 → 2NENU 21:53
PROVIDERS: ADMIT Internal Medicine; ATTEND Internal Medicine

== ENCOUNTER 2021-02-18 16:21 | Observation (INO) ==
[2021-02-18 17:26] LABS: Basophils % 0.4 %; Eosinophils # 0.1 K/mcL (0.0-0.6); Eosinophils % 0.7 %; Hematocrit 33.7 % (35.3-44.9); Hemoglobin 10.8 g/dL (11.5-15.4); Immature Granulocytes % 0.7 % (0-4); Lymphocytes % 29.3 %; Mean Corpuscular Hemoglobin 29.2 pg (28.0-33.3); Mean Corpuscular Volume 91.1 fL (83.0-100.0); Mean Platelet Volume 9.7 fL (9.4-12.4); Monocytes # 0.6 K/mcL (0.0-1.3); Monocytes % 8.6 %; Neutrophils # 4.2 K/mcL (1.6-8.9); Platelet Count 258 K/mcL (140-400); Red Cell Distribution Width 16.6 % (11.5-14.5); Segmented Neutrophils % 60.3 %
[2021-02-18 17:36] LABS: INR 1.6; Prothrombin Time 17.8 Seconds (9.4-12.1)
[2021-02-18 18:06] LABS: BUN/Creatinine Ratio 20 (6-26); Blood Urea Nitrogen 18 mg/dL (8-23); Calcium 9.3 mg/dL (8.6-10.3); Carbon Dioxide 23 mEq/L (23-29); Chloride 101 mEq/L (98-107); Glucose 145 mg/dL (70-105); Osmolality,Calculated 284 (280-300); Potassium 3.5 mEq/L (3.5-5.1); Sodium 135 mEq/L (136-145); Troponin I < 0.03 ng/mL (< 0.04); eGFR For African Americans > 60 (> 60); eGFR For Non-African Americans 60 (> 60)
[2021-02-18] MEDS ORDERED: Furosemide 40 MG/4 ML VIAL IVP ONE (18:08)
[2021-02-18] MEDS: DilTIAZem 50 MG/50 ML IV.SOLN IVC SCH (19:11)
[2021-02-18] MEDS ORDERED: Naloxone 0.4 MG/ML INJ IVP PRN (20:18)
[2021-02-18] MEDS ORDERED: Ondansetron 4 MG/2 ML VIAL IVP PRN (20:18)
[2021-02-18] MEDS ORDERED: Acetaminophen 325 MG TABLET PO PRN (20:18)
[2021-02-18] MEDS ORDERED: Melatonin 3 MG TABLET PO PRN (20:18)
[2021-02-19] MEDS ORDERED: Perflutren Lipid Microsphere 1.3 ML in 0.9 % Sodium Chloride 8.7 ML IVP PRN (01:15)
[2021-02-19] MEDS: DilTIAZem 50 MG/50 ML IV.SOLN IVC SCH (04:06)
[2021-02-19 05:02] LABS: Basophils % 0.3 %; Eosinophils % 0.6 %; Hemoglobin 11.2 g/dL (11.5-15.4); Immature Granulocytes % 0.3 % (0-4); Lymphocytes % 31.5 %; Mean Corpuscular HGB Conc 33.9 g/dL (31.6-35.5); Mean Corpuscular Hemoglobin 30.5 pg (28.0-33.3); Mean Corpuscular Volume 89.9 fL (83.0-100.0); Mean Platelet Volume 9.6 fL (9.4-12.4); Monocytes # 0.9 K/mcL (0.0-1.3); Monocytes % 13.8 %; Neutrophils # 3.5 K/mcL (1.6-8.9); Platelet Count 244 K/mcL (140-400); Red Blood Count 3.67 M/mcL (3.82-4.97); Red Cell Distribution Width 16.8 % (11.5-14.5); Segmented Neutrophils % 53.5 %; White Blood Count 6.5 K/mcL (4.3-11.1)
[2021-02-19 05:12] LABS: INR 1.3; Prothrombin Time 14.9 Seconds (9.4-12.1)
[2021-02-19 05:28] LABS: Alanine Aminotransferase 26 Units/L (7-52); Albumin 3.4 g/dL (3.5-5.7); Albumin/Globulin Ratio 1.9 (1.1-2.2); Alkaline Phosphatase 69 Units/L (34-104); Aspartate Amino Transferase 14 Units/L (13-39); BUN/Creatinine Ratio 18 (6-26); Bilirubin,Total 0.6 mg/dL (0.3-1.0); Blood Urea Nitrogen 14 mg/dL (8-23); Calcium 8.8 mg/dL (8.6-10.3); Carbon Dioxide 30 mEq/L (23-29); Chloride 102 mEq/L (98-107); Globulin 1.8 g/dL (2.4-3.5); Glucose 96 mg/dL (70-105); Magnesium 1.8 mg/dL (1.6-2.6); Osmolality,Calculated 288 (280-300); Sodium 139 mEq/L (136-145); Total Protein 5.2 g/dL (6.4-8.9); Troponin I < 0.03 ng/mL (< 0.04); eGFR For African Americans > 60 (> 60); eGFR For Non-African Americans > 60 (> 60)
[2021-02-19 06:59] LABS: Estimated Average Glucose 140 mg/dl; Hemoglobin A1C 6.5 %
[2021-02-19] MEDS ORDERED: *HR* LORazepam 0.5 MG TABLET PO PRN (07:57)
[2021-02-19] MEDS ORDERED: Loratadine 10 MG TABLET PO PRN (07:57)
[2021-02-19] MEDS ORDERED: Levalbuterol Neb 0.63 MG/3 ML IH PRN (08:03)
[2021-02-19] MEDS ORDERED: carvediloL 6.25 MG TABLET PO SCH (09:00)
[2021-02-19] MEDS ORDERED: Gabapentin 300 MG CAPSULE PO SCH (09:00)
[2021-02-19] MEDS: Furosemide 40 MG/4 ML VIAL IVP SCH (09:11)
[2021-02-19 11:42] LABS: Thyroid Stimulating Hormone 1.005 mcIU/mL (0.340-5.600)
[2021-02-19] MEDS ORDERED: Fluticasone Propionate Nasal 50 MCG/SPRAY BOTTLE NS PRN (13:39)
[2021-02-19] MEDS: Sucralfate 1 GM TABLET PO SCH (20:04)
[2021-02-19] MEDS: *HR* Rivaroxaban 10 MG TABLET PO SCH (20:05)
[2021-02-19] MEDS: carvediloL 25 MG TABLET PO SCH (20:05)
[2021-02-19] MEDS: Pregabalin 75 MG CAPSULE PO SCH (20:05)
[2021-02-20 03:42] LABS: BUN/Creatinine Ratio 20 (6-26); Blood Urea Nitrogen 17 mg/dL (8-23); Calcium 8.8 mg/dL (8.6-10.3); Carbon Dioxide 32 mEq/L (23-29); Chloride 101 mEq/L (98-107); Glucose 110 mg/dL (70-105); Magnesium 1.8 mg/dL (1.6-2.6); Osmolality,Calculated 288 (280-300); Phosphorous 2.6 mg/dL (2.7-4.5); Potassium 3.7 mEq/L (3.5-5.1); Sodium 138 mEq/L (136-145); eGFR For African Americans > 60 (> 60); eGFR For Non-African Americans > 60 (> 60)
[2021-02-20] MEDS: Sucralfate 1 GM TABLET PO SCH ×2 (08:11→21:54)
[2021-02-20] MEDS: DilTIAZem CD (24hr) 180 MG CAP.ER.24H PO SCH (08:11)
[2021-02-20] MEDS: Pregabalin 75 MG CAPSULE PO SCH ×2 (08:11→21:54)
[2021-02-20] MEDS: carvediloL 25 MG TABLET PO SCH ×2 (08:11→21:54)
[2021-02-20] MEDS: Isosorbide MONOnitrate (24 HR) 60 MG TAB.ER.24H PO SCH (08:11)
[2021-02-20] MEDS: Furosemide 40 MG/4 ML VIAL IVP SCH ×2 (08:12→21:54)
[2021-02-20] MEDS ORDERED: DilTIAZem CD (24hr) 120 MG CAP.ER.24H PO SCH (09:00)
[2021-02-20 18:45] VITALS: TEMP 98.1
[2021-02-20] MEDS: *HR* Rivaroxaban 10 MG TABLET PO SCH (21:54)
[2021-02-21 03:41] LABS: Calcium 8.8 mg/dL (8.6-10.3); Magnesium 1.7 mg/dL (1.6-2.6); Phosphorous 3.3 mg/dL (2.7-4.5)
[2021-02-21 08:05] VITALS: BP 120/91; PULSE 96
[2021-02-21] MEDS: Sucralfate 1 GM TABLET PO SCH (08:09)
[2021-02-21] MEDS: Isosorbide MONOnitrate (24 HR) 60 MG TAB.ER.24H PO SCH (08:09)
[2021-02-21] MEDS: DilTIAZem CD (24hr) 180 MG CAP.ER.24H PO SCH (08:09)
[2021-02-21] MEDS: carvediloL 25 MG TABLET PO SCH (08:09)
[2021-02-21] MEDS: Furosemide 40 MG/4 ML VIAL IVP SCH (08:10)
[2021-02-21] MEDS: Pregabalin 75 MG CAPSULE PO SCH (08:10)
[2021-02-21 10:27] VITALS: O2SAT 97
== END 2021-02-21 15:44 | disposition home or self-care (01) ==
LOC: EMEROOARM 16:21 → 2NENU 16:21 → SUATTDRO 20:13 → 2NENU 21:31
PROVIDERS: ADMIT Family Medicine; ATTEND Internal Medicine

== ENCOUNTER 2021-02-24 14:03 | Observation (INO) ==
[2021-02-24 14:59] LABS: Basophils # 0.1 K/mcL (0.0-0.2); Basophils % 0.3 %; Eosinophils % 0.1 %; Hematocrit 33.1 % (35.3-44.9); Hemoglobin 10.8 g/dL (11.5-15.4); Immature Granulocytes % 0.4 % (0-4); Lymphocytes # 1.2 K/mcL (0.6-4.6); Lymphocytes % 7.6 %; Mean Corpuscular HGB Conc 32.6 g/dL (31.6-35.5); Mean Corpuscular Hemoglobin 29.4 pg (28.0-33.3); Mean Corpuscular Volume 90.2 fL (83.0-100.0); Mean Platelet Volume 9.8 fL (9.4-12.4); Monocytes # 1.4 K/mcL (0.0-1.3); Monocytes % 9.2 %; Neutrophils # 12.5 K/mcL (1.6-8.9); Platelet Count 221 K/mcL (140-400); Red Blood Count 3.67 M/mcL (3.82-4.97); Red Cell Distribution Width 15.9 % (11.5-14.5); Segmented Neutrophils % 82.4 %; White Blood Count 15.2 K/mcL (4.3-11.1)
[2021-02-24 15:20] LABS: Alanine Aminotransferase 16 Units/L (7-52); Albumin 3.7 g/dL (3.5-5.7); Albumin/Globulin Ratio 1.8 (1.1-2.2); Alkaline Phosphatase 74 Units/L (34-104); Aspartate Amino Transferase 13 Units/L (13-39); BUN/Creatinine Ratio 18 (6-26); Bilirubin,Total 1.1 mg/dL (0.3-1.0); Blood Urea Nitrogen 17 mg/dL (8-23); Calcium 9.2 mg/dL (8.6-10.3); Carbon Dioxide 29 mEq/L (23-29); Chloride 94 mEq/L (98-107); Globulin 2.1 g/dL (2.4-3.5); Glucose 131 mg/dL (70-105); Osmolality,Calculated 271 (280-300); Potassium 4.4 mEq/L (3.5-5.1); Sodium 129 mEq/L (136-145); Total Protein 5.8 g/dL (6.4-8.9); eGFR For African Americans > 60 (> 60); eGFR For Non-African Americans 54 (> 60)
[2021-02-24 15:21] LABS: Troponin I < 0.03 ng/mL (< 0.04)
[2021-02-24] MEDS ORDERED: Ipratropium/Albuterol Neb 3 ML IH ONE (15:45)
[2021-02-24] MEDS ORDERED: methylPREDNISolone 125 MG/2 ML VIAL IVP ONE (15:47)
[2021-02-24] MEDS ORDERED: cefTRIAXone 1,000 MG in Water for inj. (sterile) 10 ML IVP ONE (15:51)
[2021-02-24] MEDS ORDERED: Furosemide 40 MG/4 ML VIAL ONE (15:56)
[2021-02-24] MEDS ORDERED: Furosemide 60 MG in 0.9 % Sodium Chloride 50 ML IV ONE (15:56)
[2021-02-24] MEDS ORDERED: Melatonin 3 MG TABLET PO PRN (17:14)
[2021-02-24] MEDS ORDERED: Ondansetron 4 MG/2 ML VIAL IVP PRN (17:14)
[2021-02-24] MEDS ORDERED: Acetaminophen 325 MG TABLET PO PRN (17:14)
[2021-02-24] MEDS ORDERED: *HR* LORazepam 0.5 MG TABLET PO PRN (17:34)
[2021-02-24] MEDS ORDERED: D5% in Water 1,000 ML IVC PRN (17:38)
[2021-02-24] MEDS ORDERED: *HR* Dextrose 50 % in Water (Vial) 50 ML VIAL IVP PRN (17:38)
[2021-02-24] MEDS ORDERED: Dextrose Gel 15 GM/37.5 ML TUBE PO PRN ×2 (17:38)
[2021-02-24] MEDS: Pregabalin 75 MG CAPSULE PO SCH (20:43)
[2021-02-24] MEDS: Valsartan 80 MG TABLET PO SCH (20:44)
[2021-02-24] MEDS: *HR* Rivaroxaban 10 MG TABLET PO SCH (20:44)
[2021-02-24] MEDS: Famotidine 20 MG TABLET PO SCH (20:45)
[2021-02-24] MEDS: Sucralfate 1 GM TABLET PO SCH (20:45)
[2021-02-24] MEDS: carvediloL 25 MG TABLET PO SCH (20:49)
[2021-02-25 02:18] LABS: BUN/Creatinine Ratio 17 (6-26); Blood Urea Nitrogen 18 mg/dL (8-23); Carbon Dioxide 28 mEq/L (23-29); Chloride 97 mEq/L (98-107); Glucose 183 mg/dL (70-105); Magnesium 1.8 mg/dL (1.6-2.6); Osmolality,Calculated 281 (280-300); Potassium 4.1 mEq/L (3.5-5.1); Sodium 132 mEq/L (136-145); Troponin I < 0.03 ng/mL (< 0.04); eGFR For African Americans 59 (> 60); eGFR For Non-African Americans 49 (> 60)
[2021-02-25] MEDS: carvediloL 25 MG TABLET PO SCH ×2 (08:46→17:15)
[2021-02-25] MEDS: Pregabalin 75 MG CAPSULE PO SCH ×2 (08:46→20:51)
[2021-02-25] MEDS: Isosorbide MONOnitrate (24 HR) 60 MG TAB.ER.24H PO SCH (08:46)
[2021-02-25] MEDS: Sucralfate 1 GM TABLET PO SCH ×2 (08:46→17:15)
[2021-02-25] MEDS: DilTIAZem CD (24hr) 180 MG CAP.ER.24H PO SCH (08:46)
[2021-02-25] MEDS ORDERED: NON-FORMULARY MEDICATION 1 EACH EACH (Fluticasone/Umeclidin/Vilanter [Trelegy Ellipta 100- IH SCH (09:00)
[2021-02-25] MEDS: Tiotropium 10 INH DOSE IH SCH (10:42)
[2021-02-25] MEDS: Budesonide/Formoterol 160/4.5 1 PUFF INH IH SCH ×2 (10:42→20:05)
[2021-02-25] MEDS ORDERED: Furosemide 40 MG/4 ML VIAL IVP ONE (14:41)
[2021-02-25] MEDS: Furosemide 20 MG/2 ML VIAL IVP SCH ×3 (14:42→20:51)
[2021-02-25] MEDS: Furosemide 40 MG/4 ML VIAL IVP SCH (17:14)
[2021-02-25] MEDS: Famotidine 20 MG TABLET PO SCH (20:50)
[2021-02-25] MEDS: Valsartan 80 MG TABLET PO SCH (20:50)
[2021-02-25] MEDS: *HR* Rivaroxaban 10 MG TABLET PO SCH (20:50)
[2021-02-26 03:41] LABS: Calcium 8.9 mg/dL (8.6-10.3); Potassium 3.8 mEq/L (3.5-5.1)
[2021-02-26] MEDS: carvediloL 25 MG TABLET PO SCH ×2 (07:58→17:13)
[2021-02-26] MEDS: Pregabalin 75 MG CAPSULE PO SCH ×2 (07:58→20:30)
[2021-02-26] MEDS: Isosorbide MONOnitrate (24 HR) 60 MG TAB.ER.24H PO SCH (07:58)
[2021-02-26] MEDS: DilTIAZem CD (24hr) 180 MG CAP.ER.24H PO SCH (07:58)
[2021-02-26] MEDS: Sucralfate 1 GM TABLET PO SCH ×2 (07:58→17:13)
[2021-02-26] MEDS: Tiotropium 10 INH DOSE IH SCH (08:05)
[2021-02-26] MEDS: Budesonide/Formoterol 160/4.5 1 PUFF INH IH SCH ×2 (08:05→20:24)
[2021-02-26 08:54] LABS: Basophils % 0.1 %; Hemoglobin 10.8 g/dL (11.5-15.4); Immature Granulocytes % 0.5 % (0-4); Lymphocytes # 1.1 K/mcL (0.6-4.6); Lymphocytes % 8.7 %; Mean Corpuscular HGB Conc 33.8 g/dL (31.6-35.5); Mean Corpuscular Hemoglobin 29.9 pg (28.0-33.3); Mean Corpuscular Volume 88.6 fL (83.0-100.0); Monocytes # 1.1 K/mcL (0.0-1.3); Monocytes % 8.5 %; Neutrophils # 10.4 K/mcL (1.6-8.9); Platelet Count 211 K/mcL (140-400); Red Blood Count 3.61 M/mcL (3.82-4.97); Red Cell Distribution Width 15.6 % (11.5-14.5); Segmented Neutrophils % 82.2 %; White Blood Count 12.7 K/mcL (4.3-11.1)
[2021-02-26] MEDS: Furosemide 40 MG/4 ML VIAL IVP SCH ×2 (09:17→23:30)
[2021-02-26] MEDS: Furosemide 20 MG/2 ML VIAL IVP SCH (09:53)
[2021-02-26] MEDS: *HR* Rivaroxaban 10 MG TABLET PO SCH (20:31)
[2021-02-26] MEDS: Famotidine 20 MG TABLET PO SCH (20:31)
[2021-02-26] MEDS: Valsartan 80 MG TABLET PO SCH (20:39)
[2021-02-27] MEDS: Isosorbide MONOnitrate (24 HR) 60 MG TAB.ER.24H PO SCH (07:41)
[2021-02-27] MEDS: Sucralfate 1 GM TABLET PO SCH (07:42)
[2021-02-27] MEDS: carvediloL 25 MG TABLET PO SCH (07:42)
[2021-02-27] MEDS: DilTIAZem CD (24hr) 180 MG CAP.ER.24H PO SCH (07:42)
[2021-02-27] MEDS: Pregabalin 75 MG CAPSULE PO SCH (07:42)
[2021-02-27 07:49] VITALS: BP 134/82; PULSE 93; TEMP 97.9; O2SAT 94
[2021-02-27 07:54] LABS: Basophils % 0.1 %; Eosinophils % 0.2 %; Hematocrit 33.9 % (35.3-44.9); Hemoglobin 10.8 g/dL (11.5-15.4); Immature Granulocytes % 0.5 % (0-4); Lymphocytes # 1.8 K/mcL (0.6-4.6); Lymphocytes % 11.8 %; Mean Corpuscular HGB Conc 31.9 g/dL (31.6-35.5); Mean Corpuscular Hemoglobin 29.3 pg (28.0-33.3); Mean Corpuscular Volume 91.9 fL (83.0-100.0); Monocytes # 1.5 K/mcL (0.0-1.3); Monocytes % 10.2 %; Neutrophils # 11.6 K/mcL (1.6-8.9); Platelet Count 212 K/mcL (140-400); Red Blood Count 3.69 M/mcL (3.82-4.97); Red Cell Distribution Width 15.9 % (11.5-14.5); Segmented Neutrophils % 77.2 %; White Blood Count 15.1 K/mcL (4.3-11.1)
[2021-02-27 08:33] LABS: Alanine Aminotransferase 17 Units/L (7-52); Albumin 3.6 g/dL (3.5-5.7); Albumin/Globulin Ratio 1.6 (1.1-2.2); Alkaline Phosphatase 66 Units/L (34-104); Aspartate Amino Transferase 12 Units/L (13-39); BUN/Creatinine Ratio 33 (6-26); Bilirubin,Direct 0.2 mg/dL (0.0-0.2); Bilirubin,Indirect 0.3 mg/dL (0.0-1.0); Bilirubin,Total 0.5 mg/dL (0.3-1.0); Blood Urea Nitrogen 33 mg/dL (8-23); Calcium 8.9 mg/dL (8.6-10.3); Carbon Dioxide 28 mEq/L (23-29); Chloride 99 mEq/L (98-107); Ferritin 69 ng/mL (10-120); Globulin 2.3 g/dL (2.4-3.5); Glucose 100 mg/dL (70-105); Iron 19 mcg/dL (50-170); Osmolality,Calculated 291 (280-300); Potassium 3.8 mEq/L (3.5-5.1); Sodium 137 mEq/L (136-145); Total Protein 5.9 g/dL (6.4-8.9); eGFR For African Americans > 60 (> 60); eGFR For Non-African Americans 52 (> 60)
[2021-02-27 08:36] LABS: % Iron Saturation 6 % (15-50); Folate 9.2 ng/mL (3.0-16.0); Transferrin 236 mg/dL (203-362)
[2021-02-27 08:45] LABS: Vitamin B12 > 1500 pg/mL (250-1100)
[2021-02-27] MEDS ORDERED: Furosemide 40 MG TABLET PO SCH (09:00)
[2021-02-27] MEDS: Budesonide/Formoterol 160/4.5 1 PUFF INH IH SCH (10:08)
[2021-02-27] MEDS: Tiotropium 10 INH DOSE IH SCH (10:09)
== END 2021-02-27 11:46 | disposition home or self-care (01) ==
LOC: EMEROOARM 14:03 → 3ANU 14:03 → SUATTDRO 16:52 → 3ANU 17:47
PROVIDERS: ADMIT Internal Medicine; ATTEND Pharmacist

== ENCOUNTER 2021-03-13 19:36 | Inpatient (IN) ==
[2021-03-13 20:32] LABS: Basophils % 0.5 %; Eosinophils # 0.1 K/mcL (0.0-0.6); Eosinophils % 1.2 %; Hemoglobin 10.5 g/dL (11.5-15.4); Immature Granulocytes % 0.5 % (0-4); Lymphocytes # 1.4 K/mcL (0.6-4.6); Lymphocytes % 18.9 %; Mean Corpuscular HGB Conc 31.8 g/dL (31.6-35.5); Mean Corpuscular Hemoglobin 28.9 pg (28.0-33.3); Mean Corpuscular Volume 90.9 fL (83.0-100.0); Monocytes # 0.7 K/mcL (0.0-1.3); Monocytes % 9.4 %; Neutrophils # 5.3 K/mcL (1.6-8.9); Platelet Count 300 K/mcL (140-400); Red Blood Count 3.63 M/mcL (3.82-4.97); Red Cell Distribution Width 15.4 % (11.5-14.5); Segmented Neutrophils % 69.5 %; White Blood Count 7.6 K/mcL (4.3-11.1)
[2021-03-13 20:58] LABS: BUN/Creatinine Ratio 18 (6-26); Blood Urea Nitrogen 23 mg/dL (8-23); Calcium 9.2 mg/dL (8.6-10.3); Carbon Dioxide 28 mEq/L (23-29); Chloride 101 mEq/L (98-107); Glucose 127 mg/dL (70-105); Osmolality,Calculated 287 (280-300); Potassium 4.6 mEq/L (3.5-5.1); Sodium 136 mEq/L (136-145); Troponin I < 0.03 ng/mL (< 0.04); eGFR For African Americans 47 (> 60); eGFR For Non-African Americans 38 (> 60)
[2021-03-13 22:33] LABS: Adenovirus Not Detected (Not Detect); Bordetella Pertussis Not Detected (Not Detect); Chlamydophila pneumoniae Not Detected (Not Detect); Coronavirus 229E Not Detected (Not Detect); Coronavirus HKU1 Not Detected (Not Detect); Coronavirus NL63 Not Detected (Not Detect); Coronavirus OC43 Not Detected (Not Detect); Human Metapneumovirus Not Detected (Not Detect); Human Rhinovirus/Enterovirus Not Detected (Not Detect); Influenza A Subtype 2009 H1 Not Detected (Not Detect); Influenza B Not Detected (Not Detect); Mycoplasma pneumoniae Not Detected (Not Detect); Parainfluenza Virus 1 Not Detected (Not Detect); Parainfluenza Virus 2 Not Detected (Not Detect); Parainfluenza Virus 3 Not Detected (Not Detect); Parainfluenza Virus 4 Not Detected (Not Detect); Respiratory Syncytial Virus Not Detected (Not Detect); SARS-CoV-2 Not Detected (Not Detect)
[2021-03-13] MEDS ORDERED: Furosemide 40 MG/4 ML VIAL IVP ONE (22:50)
[2021-03-14] MEDS ORDERED: Naloxone 0.4 MG/ML INJ IVP PRN (01:52)
[2021-03-14] MEDS ORDERED: Ondansetron 4 MG/2 ML VIAL IVP PRN (01:52)
[2021-03-14] MEDS ORDERED: *HR* LORazepam 0.5 MG TABLET PO PRN (02:27)
[2021-03-14 03:09] LABS: Hematocrit 32.3 % (35.3-44.9); Hemoglobin 10.4 g/dL (11.5-15.4); Mean Corpuscular HGB Conc 32.2 g/dL (31.6-35.5); Mean Corpuscular Hemoglobin 29.1 pg (28.0-33.3); Mean Corpuscular Volume 90.5 fL (83.0-100.0); Mean Platelet Volume 9.1 fL (9.4-12.4); Platelet Count 287 K/mcL (140-400); Red Blood Count 3.57 M/mcL (3.82-4.97); Red Cell Distribution Width 15.2 % (11.5-14.5); White Blood Count 7.4 K/mcL (4.3-11.1)
[2021-03-14 03:18] LABS: BUN/Creatinine Ratio 18 (6-26); Blood Urea Nitrogen 21 mg/dL (8-23); Calcium 9.1 mg/dL (8.6-10.3); Carbon Dioxide 31 mEq/L (23-29); Chloride 101 mEq/L (98-107); Chol/HDL Ratio 2.1 (0-4.9); Cholesterol 72 mg/dL (< 200); Glucose 113 mg/dL (70-105); HDL Cholesterol 35 mg/dL (40-59); LDL Cholesterol,Calculated 25 mg/dL (< 100); Magnesium 2.1 mg/dL (1.6-2.6); Osmolality,Calculated 292 (280-300); Potassium 4.1 mEq/L (3.5-5.1); Sodium 139 mEq/L (136-145); Triglycerides 62 mg/dL (< 150); eGFR For African Americans 53 (> 60); eGFR For Non-African Americans 43 (> 60)
[2021-03-14 03:25] LABS: Troponin I < 0.03 ng/mL (< 0.04)
[2021-03-14 04:13] LABS: Bilirubin,Urine Negative (Negative); Blood,Urine Negative (Negative); Clarity,Urine Clear (Clear); Color,Urine Colorless (Yellow); Glucose,Urine (UA) Normal (Normal); Ketones,Urine Negative (Negative); Leukocyte Esterase,Urine Trace (Negative); Nitrite,Urine Negative (Negative); PH,Urine 6.5 pH Units (5.0-8.0); Protein,Urine Negative (Neg-Trace); RBC,Urine 0-3 per hpf (0-3); Specific Gravity,Urine 1.008 (1.010-1.025); Urobilinogen,Urine Normal (Normal)
[2021-03-14] MEDS: Sucralfate 1 GM TABLET PO SCH ×2 (08:03→17:13)
[2021-03-14] MEDS: carvediloL 25 MG TABLET PO SCH ×2 (08:03→17:14)
[2021-03-14] MEDS: DilTIAZem CD (24hr) 180 MG CAP.ER.24H PO SCH (08:03)
[2021-03-14] MEDS: Isosorbide MONOnitrate (24 HR) 30 MG TAB.ER.24H PO SCH (08:03)
[2021-03-14] MEDS: Loratadine 10 MG TABLET PO SCH (08:03)
[2021-03-14] MEDS: Pregabalin 75 MG CAPSULE PO SCH ×2 (08:04→20:28)
[2021-03-14] MEDS: Valsartan 80 MG TABLET PO SCH (08:04)
[2021-03-14] MEDS: Furosemide 20 MG/2 ML VIAL IVP SCH ×2 (08:04→17:13)
[2021-03-14] MEDS: Fluticasone Propionate Nasal 50 MCG/SPRAY BOTTLE NS SCH (08:07)
[2021-03-14] MEDS ORDERED: Famotidine 20 MG TABLET PO SCH (09:00)
[2021-03-14] MEDS ORDERED: Albuterol 2.5 MG/3 ML NEBULIZER IH PRN (17:00)
[2021-03-14] MEDS: *HR* Rivaroxaban 10 MG TABLET PO SCH (17:13)
[2021-03-14] MEDS: Acetaminophen 325 MG TABLET PO PRN (20:27)
[2021-03-14] MEDS: Famotidine 20 MG TABLET PO SCH (20:28)
[2021-03-15 06:29] LABS: Hematocrit 30.3 % (35.3-44.9); Hemoglobin 9.7 g/dL (11.5-15.4); Mean Corpuscular Hemoglobin 29.3 pg (28.0-33.3); Mean Corpuscular Volume 91.5 fL (83.0-100.0); Mean Platelet Volume 9.6 fL (9.4-12.4); Platelet Count 274 K/mcL (140-400); Red Blood Count 3.31 M/mcL (3.82-4.97); Red Cell Distribution Width 15.5 % (11.5-14.5); White Blood Count 5.4 K/mcL (4.3-11.1)
[2021-03-15 06:45] LABS: Calcium 8.8 mg/dL (8.6-10.3); Potassium 4.1 mEq/L (3.5-5.1)
[2021-03-15] MEDS: carvediloL 25 MG TABLET PO SCH ×2 (07:54→21:02)
[2021-03-15] MEDS: Sucralfate 1 GM TABLET PO SCH ×2 (07:54→17:48)
[2021-03-15] MEDS: Furosemide 20 MG/2 ML VIAL IVP SCH (07:54)
[2021-03-15] MEDS: Pregabalin 75 MG CAPSULE PO SCH ×2 (09:37→21:02)
[2021-03-15] MEDS: Loratadine 10 MG TABLET PO SCH (09:37)
[2021-03-15] MEDS: Valsartan 80 MG TABLET PO SCH (09:37)
[2021-03-15] MEDS: DilTIAZem CD (24hr) 180 MG CAP.ER.24H PO SCH (09:37)
[2021-03-15] MEDS: Isosorbide MONOnitrate (24 HR) 30 MG TAB.ER.24H PO SCH (09:38)
[2021-03-15] MEDS: Fluticasone Propionate Nasal 50 MCG/SPRAY BOTTLE NS SCH (09:39)
[2021-03-15] MEDS ORDERED: Fluticasone Propionate Nasal 50 MCG/SPRAY BOTTLE NS PRN (16:42)
[2021-03-15] MEDS: *HR* Rivaroxaban 10 MG TABLET PO SCH (17:48)
[2021-03-15] MEDS ORDERED: NON-FORMULARY MEDICATION 1 EACH EACH (Rivaroxaban [Xarelto] 20 MG Tablet) PO SCH (21:00)
[2021-03-15] MEDS: Famotidine 20 MG TABLET PO SCH (21:02)
[2021-03-15] MEDS: Budesonide/Formoterol 160/4.5 1 PUFF INH IH SCH (22:20)
[2021-03-16 06:41] LABS: Hematocrit 31.3 % (35.3-44.9); Hemoglobin 9.9 g/dL (11.5-15.4); Mean Corpuscular HGB Conc 31.6 g/dL (31.6-35.5); Mean Corpuscular Hemoglobin 28.9 pg (28.0-33.3); Mean Corpuscular Volume 91.3 fL (83.0-100.0); Mean Platelet Volume 9.5 fL (9.4-12.4); Platelet Count 256 K/mcL (140-400); Red Blood Count 3.43 M/mcL (3.82-4.97); Red Cell Distribution Width 15.1 % (11.5-14.5); White Blood Count 4.9 K/mcL (4.3-11.1)
[2021-03-16 06:55] LABS: BUN/Creatinine Ratio 25 (6-26); Blood Urea Nitrogen 25 mg/dL (8-23); Calcium 8.9 mg/dL (8.6-10.3); Carbon Dioxide 31 mEq/L (23-29); Chloride 101 mEq/L (98-107); Glucose 94 mg/dL (70-105); Osmolality,Calculated 288 (280-300); Potassium 4.2 mEq/L (3.5-5.1); Sodium 137 mEq/L (136-145); eGFR For African Americans > 60 (> 60); eGFR For Non-African Americans 53 (> 60)
[2021-03-16] MEDS: Sucralfate 1 GM TABLET PO SCH ×2 (07:46→16:53)
[2021-03-16] MEDS: carvediloL 25 MG TABLET PO SCH ×3 (07:47→17:38)
[2021-03-16] MEDS: Pregabalin 75 MG CAPSULE PO SCH ×2 (08:43→20:44)
[2021-03-16] MEDS: Isosorbide MONOnitrate (24 HR) 60 MG TAB.ER.24H PO SCH (08:43)
[2021-03-16] MEDS: DilTIAZem CD (24hr) 180 MG CAP.ER.24H PO SCH (08:44)
[2021-03-16] MEDS: amLODIPine 5 MG TABLET PO SCH (08:44)
[2021-03-16] MEDS: Loratadine 10 MG TABLET PO SCH (08:45)
[2021-03-16] MEDS: Furosemide 20 MG TABLET PO SCH (08:45)
[2021-03-16] MEDS ORDERED: FEXOFENADINE HCL 180 MG PO SCH (09:00)
[2021-03-16] MEDS ORDERED: NON-FORMULARY MEDICATION 1 EACH EACH (Atorvastatin Calcium [Lipitor] 80 MG Tablet) PO SCH (09:00)
[2021-03-16] MEDS ORDERED: NON-FORMULARY MEDICATION 1 EACH EACH (Fluticasone/Umeclidin/Vilanter [Trelegy Ellipta 100- IH SCH (09:00)
[2021-03-16] MEDS: Tiotropium 10 INH DOSE IH SCH (09:35)
[2021-03-16] MEDS: Budesonide/Formoterol 160/4.5 1 PUFF INH IH SCH ×2 (09:35→20:12)
[2021-03-16] MEDS: *HR* Rivaroxaban 10 MG TABLET PO SCH (16:53)
[2021-03-16] MEDS: Furosemide 20 MG/2 ML VIAL IVP SCH (17:38)
[2021-03-16] MEDS: Famotidine 20 MG TABLET PO SCH (20:45)
[2021-03-16] MEDS ORDERED: Valsartan 80 MG TABLET PO SCH (21:00)
[2021-03-16] MEDS: Acetaminophen 325 MG TABLET PO PRN (22:58)
[2021-03-17 04:45] LABS: Hematocrit 31.9 % (35.3-44.9); Hemoglobin 10.1 g/dL (11.5-15.4); Mean Corpuscular HGB Conc 31.7 g/dL (31.6-35.5); Mean Corpuscular Hemoglobin 28.7 pg (28.0-33.3); Mean Corpuscular Volume 90.6 fL (83.0-100.0); Mean Platelet Volume 9.6 fL (9.4-12.4); Platelet Count 245 K/mcL (140-400); Red Blood Count 3.52 M/mcL (3.82-4.97); Red Cell Distribution Width 15.2 % (11.5-14.5); White Blood Count 5.5 K/mcL (4.3-11.1)
[2021-03-17 05:02] LABS: BUN/Creatinine Ratio 26 (6-26); Blood Urea Nitrogen 24 mg/dL (8-23); Calcium 9.1 mg/dL (8.6-10.3); Carbon Dioxide 29 mEq/L (23-29); Chloride 104 mEq/L (98-107); Glucose 104 mg/dL (70-105); Osmolality,Calculated 292 (280-300); Sodium 139 mEq/L (136-145); eGFR For African Americans > 60 (> 60); eGFR For Non-African Americans 58 (> 60)
[2021-03-17] MEDS: Tiotropium 10 INH DOSE IH SCH (07:49)
[2021-03-17] MEDS: Budesonide/Formoterol 160/4.5 1 PUFF INH IH SCH (07:49)
[2021-03-17] MEDS: Loratadine 10 MG TABLET PO SCH (09:25)
[2021-03-17] MEDS: Isosorbide MONOnitrate (24 HR) 60 MG TAB.ER.24H PO SCH (09:25)
[2021-03-17] MEDS: Furosemide 20 MG TABLET PO SCH (09:25)
[2021-03-17] MEDS: carvediloL 25 MG TABLET PO SCH (09:25)
[2021-03-17] MEDS: Pregabalin 75 MG CAPSULE PO SCH (09:25)
[2021-03-17] MEDS: DilTIAZem CD (24hr) 180 MG CAP.ER.24H PO SCH (09:25)
[2021-03-17] MEDS: Sucralfate 1 GM TABLET PO SCH (09:26)
[2021-03-17 10:16] VITALS: BP 116/78; PULSE 88; TEMP 98.8; O2SAT 100
== END 2021-03-17 13:34 | disposition home or self-care (01) | DRG 291 ==
LOC: 3ANU 19:36 → EMEROOARM 19:36 → SUATTDRO 23:49 → 3ANU 03-14 00:27
PROVIDERS: ADMIT Internal Medicine; ATTEND Internal Medicine

== ENCOUNTER 2021-05-12 10:49 | Inpatient (IN) ==
[2021-05-12 11:55] LABS: Basophils % 0.4 %; Eosinophils # 0.1 K/mcL (0.0-0.6); Hematocrit 35.1 % (35.3-44.9); Hemoglobin 10.8 g/dL (11.5-15.4); Immature Granulocytes % 0.2 % (0-4); Lymphocytes # 1.1 K/mcL (0.6-4.6); Lymphocytes % 22.1 %; Mean Corpuscular HGB Conc 30.8 g/dL (31.6-35.5); Mean Corpuscular Hemoglobin 27.3 pg (28.0-33.3); Mean Corpuscular Volume 88.6 fL (83.0-100.0); Mean Platelet Volume 10.6 fL (9.4-12.4); Monocytes # 0.6 K/mcL (0.0-1.3); Monocytes % 12.9 %; Neutrophils # 3.2 K/mcL (1.6-8.9); Platelet Count 179 K/mcL (140-400); Red Blood Count 3.96 M/mcL (3.82-4.97); Red Cell Distribution Width 16.5 % (11.5-14.5); Segmented Neutrophils % 63.4 %
[2021-05-12 11:57] LABS: Prothrombin Time 33.4 Seconds (9.4-12.1)
[2021-05-12 12:00] LABS: Activated Partial Thrombo Time 44.3 Seconds (26.0-36.0)
[2021-05-12 12:28] LABS: BUN/Creatinine Ratio 38 (6-26); Blood Urea Nitrogen 49 mg/dL (8-23); Calcium 9.7 mg/dL (8.6-10.3); Carbon Dioxide 31 mEq/L (23-29); Chloride 104 mEq/L (98-107); Glucose 120 mg/dL (70-105); Osmolality,Calculated 304 (280-300); Potassium 4.1 mEq/L (3.5-5.1); Sodium 140 mEq/L (136-145); Troponin I < 0.03 ng/mL (< 0.04); eGFR For African Americans 48 (> 60); eGFR For Non-African Americans 39 (> 60)
[2021-05-12] MEDS ORDERED: Ondansetron 4 MG/2 ML VIAL IVP PRN (14:28)
[2021-05-12] MEDS ORDERED: Naloxone 0.4 MG/ML INJ IVP PRN (14:28)
[2021-05-12] MEDS ORDERED: Valsartan 80 MG TABLET PO ONE (15:33)
[2021-05-12] MEDS: Budesonide/Formoterol 160/4.5 1 PUFF INH IH SCH (15:52)
[2021-05-12] MEDS: Ipratropium/Albuterol Neb 3 ML IH SCH ×3 (15:53→23:11)
[2021-05-12] MEDS: predniSONE 20 MG TABLET PO SCH (16:26)
[2021-05-12 17:40] LABS: Bacteria,Urine Few per hpf (None-Few); Bilirubin,Urine Negative (Negative); Blood,Urine Negative (Negative); Clarity,Urine Clear (Clear); Color,Urine Yellow (Yellow); Glucose,Urine (UA) Normal (Normal); Ketones,Urine Negative (Negative); Leukocyte Esterase,Urine Trace (Negative); Mucus,Urine Few per lpf (None-Few); Nitrite,Urine Negative (Negative); Protein,Urine 50 mg/dL (Neg-Trace); RBC,Urine 0-3 per hpf (0-3); Specific Gravity,Urine 1.022 (1.010-1.025); Squamous Epithelial Cell,Urine Few per hpf (None-Few); Urobilinogen,Urine Normal (Normal)
[2021-05-12] MEDS: carvediloL 25 MG TABLET PO SCH (21:07)
[2021-05-13 00:24] LABS: Basophils % 0.4 %; Eosinophils % 0.2 %; Hematocrit 34.2 % (35.3-44.9); Hemoglobin 10.5 g/dL (11.5-15.4); Lymphocytes # 0.7 K/mcL (0.6-4.6); Lymphocytes % 14.4 %; Mean Corpuscular HGB Conc 30.7 g/dL (31.6-35.5); Mean Corpuscular Hemoglobin 27.3 pg (28.0-33.3); Mean Corpuscular Volume 89.1 fL (83.0-100.0); Monocytes # 0.1 K/mcL (0.0-1.3); Monocytes % 2.3 %; Platelet Count 162 K/mcL (140-400); Red Blood Count 3.84 M/mcL (3.82-4.97); Red Cell Distribution Width 16.4 % (11.5-14.5); Segmented Neutrophils % 81.7 %; White Blood Count 4.9 K/mcL (4.3-11.1)
[2021-05-13 00:42] LABS: BUN/Creatinine Ratio 39 (6-26); Blood Urea Nitrogen 38 mg/dL (8-23); Calcium 9.5 mg/dL (8.6-10.3); Carbon Dioxide 28 mEq/L (23-29); Chloride 106 mEq/L (98-107); Glucose 153 mg/dL (70-105); Magnesium 2.1 mg/dL (1.6-2.6); Osmolality,Calculated 300 (280-300); Potassium 4.8 mEq/L (3.5-5.1); Sodium 139 mEq/L (136-145); eGFR For African Americans > 60 (> 60); eGFR For Non-African Americans 54 (> 60)
[2021-05-13] MEDS: Ipratropium/Albuterol Neb 3 ML IH SCH ×6 (04:35→21:15)
[2021-05-13] MEDS: Budesonide/Formoterol 160/4.5 1 PUFF INH IH SCH ×2 (07:32→21:04)
[2021-05-13] MEDS: predniSONE 20 MG TABLET PO SCH (08:58)
[2021-05-13] MEDS: carvediloL 25 MG TABLET PO SCH ×2 (08:58→19:31)
[2021-05-13] MEDS: Loratadine 10 MG TABLET PO SCH (08:58)
[2021-05-13] MEDS: DilTIAZem CD (24hr) 180 MG CAP.ER.24H PO SCH (08:58)
[2021-05-13] MEDS: Isosorbide MONOnitrate (24 HR) 60 MG TAB.ER.24H PO SCH (09:03)
[2021-05-13] MEDS: amLODIPine 5 MG TABLET PO SCH (09:03)
[2021-05-13] MEDS ORDERED: Fluticasone Propionate Nasal 50 MCG/SPRAY BOTTLE NS PRN (15:27)
[2021-05-13] MEDS: MethylPREDNISolone 40 MG/ML VIAL IVP SCH (17:12)
[2021-05-13] MEDS: *HR* Rivaroxaban 10 MG TABLET PO SCH (19:31)
[2021-05-14] MEDS: Ipratropium/Albuterol Neb 3 ML IH SCH ×3 (03:57→11:12)
[2021-05-14] MEDS: MethylPREDNISolone 40 MG/ML VIAL IVP SCH ×2 (05:40→18:09)
[2021-05-14] MEDS: Budesonide/Formoterol 160/4.5 1 PUFF INH IH SCH ×2 (07:44→19:50)
[2021-05-14] MEDS: DilTIAZem CD (24hr) 180 MG CAP.ER.24H PO SCH (08:43)
[2021-05-14] MEDS: Loratadine 10 MG TABLET PO SCH (08:44)
[2021-05-14] MEDS: amLODIPine 5 MG TABLET PO SCH (08:44)
[2021-05-14] MEDS: Furosemide 40 MG TABLET PO SCH (08:44)
[2021-05-14] MEDS: Isosorbide MONOnitrate (24 HR) 60 MG TAB.ER.24H PO SCH (08:44)
[2021-05-14] MEDS: carvediloL 25 MG TABLET PO SCH ×2 (08:44→20:13)
[2021-05-14] MEDS ORDERED: NON-FORMULARY MEDICATION 1 EACH EACH (Fluticasone/Umeclidin/Vilanter [Trelegy Ellipta 100- IH SCH (09:00)
[2021-05-14] MEDS ORDERED: *HR* LORazepam 2 MG/ML VIAL IVP PRN (12:43)
[2021-05-14] MEDS ORDERED: Ipratropium/Albuterol Neb 3 ML IH PRN (12:48)
[2021-05-14] MEDS: *HR* Rivaroxaban 10 MG TABLET PO SCH (20:13)
[2021-05-14] MEDS: *HR* LORazepam 0.5 MG TABLET PO PRN (20:13)
[2021-05-15] MEDS: MethylPREDNISolone 40 MG/ML VIAL IVP SCH (05:52)
[2021-05-15] MEDS: Budesonide/Formoterol 160/4.5 1 PUFF INH IH SCH ×2 (08:04→20:34)
[2021-05-15] MEDS: carvediloL 25 MG TABLET PO SCH ×2 (09:22→19:50)
[2021-05-15] MEDS: amLODIPine 5 MG TABLET PO SCH (09:22)
[2021-05-15] MEDS: DilTIAZem CD (24hr) 180 MG CAP.ER.24H PO SCH (09:22)
[2021-05-15] MEDS: Isosorbide MONOnitrate (24 HR) 60 MG TAB.ER.24H PO SCH (09:22)
[2021-05-15] MEDS: Furosemide 40 MG TABLET PO SCH (09:23)
[2021-05-15] MEDS: Loratadine 10 MG TABLET PO SCH (09:23)
[2021-05-15] MEDS ORDERED: polyethylene glycoL 3350 17 GM POWD.PACK PO SCH (10:30)
[2021-05-15] MEDS ORDERED: Furosemide 20 MG/2 ML VIAL IVP ONE (14:37)
[2021-05-15] MEDS: *HR* Rivaroxaban 10 MG TABLET PO SCH (19:49)
[2021-05-15] MEDS: polyethylene glycoL 3350 17 GM POWD.PACK PO SCH (19:49)
[2021-05-15] MEDS: *HR* LORazepam 0.5 MG TABLET PO PRN (19:50)
[2021-05-16] MEDS: DilTIAZem CD (24hr) 180 MG CAP.ER.24H PO SCH (08:05)
[2021-05-16] MEDS: amLODIPine 5 MG TABLET PO SCH (09:36)
[2021-05-16] MEDS: carvediloL 25 MG TABLET PO SCH ×2 (09:37→21:35)
[2021-05-16] MEDS: Furosemide 40 MG TABLET PO SCH (09:37)
[2021-05-16] MEDS: Isosorbide MONOnitrate (24 HR) 60 MG TAB.ER.24H PO SCH (09:37)
[2021-05-16] MEDS: predniSONE 20 MG TABLET PO SCH (09:37)
[2021-05-16] MEDS: Loratadine 10 MG TABLET PO SCH (09:38)
[2021-05-16] MEDS: polyethylene glycoL 3350 17 GM POWD.PACK PO SCH (09:40)
[2021-05-16] MEDS ORDERED: Furosemide 20 MG/2 ML VIAL IVP ONE (09:56)
[2021-05-16] MEDS: Budesonide/Formoterol 160/4.5 1 PUFF INH IH SCH ×2 (10:22→20:13)
[2021-05-16 15:20] LABS: Hematocrit 32.4 % (35.3-44.9); Hemoglobin 10.5 g/dL (11.5-15.4); Mean Corpuscular HGB Conc 32.4 g/dL (31.6-35.5); Mean Corpuscular Hemoglobin 27.9 pg (28.0-33.3); Mean Corpuscular Volume 85.9 fL (83.0-100.0); Mean Platelet Volume 10.5 fL (9.4-12.4); Platelet Count 186 K/mcL (140-400); Red Blood Count 3.77 M/mcL (3.82-4.97); Red Cell Distribution Width 16.7 % (11.5-14.5)
[2021-05-16 15:24] LABS: White Blood Count 7.9 K/mcL (4.3-11.1)
[2021-05-16 15:40] LABS: BUN/Creatinine Ratio 38 (6-26); Blood Urea Nitrogen 32 mg/dL (8-23); Calcium 9.2 mg/dL (8.6-10.3); Carbon Dioxide 33 mEq/L (23-29); Chloride 99 mEq/L (98-107); Glucose 158 mg/dL (70-105); Osmolality,Calculated 296 (280-300); Potassium 3.7 mEq/L (3.5-5.1); Sodium 138 mEq/L (136-145); eGFR For African Americans > 60 (> 60); eGFR For Non-African Americans > 60 (> 60)
[2021-05-16] MEDS: *HR* Rivaroxaban 10 MG TABLET PO SCH (21:35)
[2021-05-16] MEDS: Melatonin 3 MG TABLET PO PRN (21:35)
[2021-05-17] MEDS: Budesonide/Formoterol 160/4.5 1 PUFF INH IH SCH ×2 (07:47→20:28)
[2021-05-17] MEDS ORDERED: Furosemide 20 MG/2 ML VIAL IVP ONE (10:08)
[2021-05-17] MEDS: DilTIAZem CD (24hr) 180 MG CAP.ER.24H PO SCH (10:40)
[2021-05-17] MEDS: Isosorbide MONOnitrate (24 HR) 60 MG TAB.ER.24H PO SCH (10:40)
[2021-05-17] MEDS: carvediloL 25 MG TABLET PO SCH ×2 (10:41→20:32)
[2021-05-17] MEDS: amLODIPine 5 MG TABLET PO SCH (10:42)
[2021-05-17] MEDS: Furosemide 40 MG TABLET PO SCH (10:44)
[2021-05-17] MEDS: predniSONE 20 MG TABLET PO SCH (10:45)
[2021-05-17] MEDS: Loratadine 10 MG TABLET PO SCH (10:46)
[2021-05-17] MEDS: polyethylene glycoL 3350 17 GM POWD.PACK PO SCH (10:48)
[2021-05-17] MEDS: *HR* Rivaroxaban 10 MG TABLET PO SCH (20:32)
[2021-05-17] MEDS: Melatonin 3 MG TABLET PO PRN (20:33)
[2021-05-18 06:53] VITALS: TEMP 98.1
[2021-05-18] MEDS: Budesonide/Formoterol 160/4.5 1 PUFF INH IH SCH (09:12)
[2021-05-18] MEDS: predniSONE 20 MG TABLET PO SCH (09:51)
[2021-05-18] MEDS: Isosorbide MONOnitrate (24 HR) 60 MG TAB.ER.24H PO SCH (09:51)
[2021-05-18] MEDS: polyethylene glycoL 3350 17 GM POWD.PACK PO SCH (09:52)
[2021-05-18] MEDS: amLODIPine 5 MG TABLET PO SCH (09:52)
[2021-05-18] MEDS: Loratadine 10 MG TABLET PO SCH (09:52)
[2021-05-18] MEDS: carvediloL 25 MG TABLET PO SCH (09:52)
[2021-05-18] MEDS: Furosemide 40 MG TABLET PO SCH (09:52)
[2021-05-18] MEDS: DilTIAZem CD (24hr) 180 MG CAP.ER.24H PO SCH (09:55)
[2021-05-18 11:57] VITALS: BP 155/77; PULSE 55; O2SAT 98
== END 2021-05-18 15:31 | disposition home health service (06) | DRG 190 ==
LOC: EMEROOARM 10:49 → 3BNU 10:49 → SUATTDRO 13:35 → 3BNU 14:13
PROVIDERS: ADMIT Student in an Organized Health Care Education/Training Program; ATTEND Registered Nurse

== ENCOUNTER 2022-03-30 12:17 | Observation (INO) ==
[2022-03-30 15:05] LABS: Basophils % 0.5 %; Eosinophils % 0.6 %; Hematocrit 28.7 % (35.3-44.9); Hemoglobin 9.2 g/dL (11.5-15.4); Immature Granulocytes % 0.3 % (0-4); Lymphocytes # 1.9 K/mcL (0.6-4.6); Lymphocytes % 28.6 %; Mean Corpuscular HGB Conc 32.1 g/dL (31.6-35.5); Mean Corpuscular Hemoglobin 32.4 pg (28.0-33.3); Mean Corpuscular Volume 101.1 fL (83.0-100.0); Monocytes # 0.5 K/mcL (0.0-1.3); Neutrophils # 4.1 K/mcL (1.6-8.9); Platelet Count 314 K/mcL (140-400); Red Blood Count 2.84 M/mcL (3.82-4.97); Red Cell Distribution Width 13.9 % (11.5-14.5); White Blood Count 6.5 K/mcL (4.3-11.1)
[2022-03-30 15:40] LABS: Bilirubin,Urine Negative (Negative); Blood,Urine Negative (Negative); Clarity,Urine Clear (Clear); Color,Urine Colorless (Yellow); Glucose,Urine (UA) Normal (Normal); Ketones,Urine Negative (Negative); Leukocyte Esterase,Urine Negative (Negative); Nitrite,Urine Negative (Negative); PH,Urine 7.5 pH Units (5.0-8.0); Protein,Urine Negative (Neg-Trace); Specific Gravity,Urine 1.013 (1.010-1.025); Urobilinogen,Urine Normal (Normal)
[2022-03-30 15:40] LABS: Alanine Aminotransferase 11 Units/L (7-52); Albumin 4.1 g/dL (3.5-5.7); Albumin/Globulin Ratio 1.6 (1.1-2.2); Alkaline Phosphatase 65 Units/L (34-104); Aspartate Amino Transferase 16 Units/L (13-39); BUN/Creatinine Ratio 20 (6-26); Bilirubin,Total 0.6 mg/dL (0.3-1.0); Blood Urea Nitrogen 22 mg/dL (8-23); Calcium 9.8 mg/dL (8.6-10.3); Carbon Dioxide 28 mEq/L (23-29); Chloride 102 mEq/L (98-107); Globulin 2.6 g/dL (2.4-3.5); Glucose 105 mg/dL (70-105); Osmolality,Calculated 290 (280-300); Potassium 4.3 mEq/L (3.5-5.1); Sodium 138 mEq/L (136-145); Total Protein 6.7 g/dL (6.4-8.9); Troponin I < 0.03 ng/mL (< 0.04)
[2022-03-30] MEDS ORDERED: *HR* Rivaroxaban 15 MG TABLET PO SCH (17:00)
[2022-03-30] MEDS ORDERED: Acetaminophen 325 MG TABLET PO PRN (17:12)
[2022-03-30] MEDS ORDERED: Naloxone 0.4 MG/ML INJ IVP PRN (17:12)
[2022-03-30] MEDS ORDERED: Ondansetron 4 MG/2 ML VIAL IVP PRN (17:12)
[2022-03-30 17:30] LABS: Adenovirus Not Detected (Not Detect); Bordetella Pertussis Not Detected (Not Detect); Chlamydophila pneumoniae Not Detected (Not Detect); Coronavirus 229E Not Detected (Not Detect); Coronavirus HKU1 Not Detected (Not Detect); Coronavirus NL63 Not Detected (Not Detect); Coronavirus OC43 Not Detected (Not Detect); Human Metapneumovirus Not Detected (Not Detect); Human Rhinovirus/Enterovirus Not Detected (Not Detect); Influenza A Subtype 2009 H1 Not Detected (Not Detect); Influenza B Not Detected (Not Detect); Mycoplasma pneumoniae Not Detected (Not Detect); Parainfluenza Virus 1 Not Detected (Not Detect); Parainfluenza Virus 2 Not Detected (Not Detect); Parainfluenza Virus 3 Not Detected (Not Detect); Parainfluenza Virus 4 Not Detected (Not Detect); Respiratory Syncytial Virus Not Detected (Not Detect); SARS-CoV-2 Not Detected (Not Detect)
[2022-03-30] MEDS: Furosemide 40 MG/4 ML VIAL IVP SCH (20:46)
[2022-03-31 03:06] LABS: Basophils % 0.3 %; Eosinophils # 0.1 K/mcL (0.0-0.6); Eosinophils % 0.9 %; Hemoglobin 8.5 g/dL (11.5-15.4); Immature Granulocytes % 0.5 % (0-4); Lymphocytes # 2.3 K/mcL (0.6-4.6); Lymphocytes % 35.5 %; Mean Corpuscular HGB Conc 32.7 g/dL (31.6-35.5); Mean Corpuscular Hemoglobin 33.1 pg (28.0-33.3); Mean Corpuscular Volume 101.2 fL (83.0-100.0); Mean Platelet Volume 9.2 fL (9.4-12.4); Monocytes # 0.8 K/mcL (0.0-1.3); Monocytes % 11.7 %; Neutrophils # 3.3 K/mcL (1.6-8.9); Platelet Count 273 K/mcL (140-400); Red Blood Count 2.57 M/mcL (3.82-4.97); Red Cell Distribution Width 14.1 % (11.5-14.5); Segmented Neutrophils % 51.1 %; White Blood Count 6.5 K/mcL (4.3-11.1)
[2022-03-31 03:29] LABS: % Iron Saturation 13 % (15-50); BUN/Creatinine Ratio 18 (6-26); Blood Urea Nitrogen 21 mg/dL (8-23); Calcium 9.1 mg/dL (8.6-10.3); Carbon Dioxide 27 mEq/L (23-29); Chloride 104 mEq/L (98-107); Glucose 102 mg/dL (70-105); Iron 38 mcg/dL (50-170); Osmolality,Calculated 291 (280-300); Sodium 139 mEq/L (136-145); Transferrin 203 mg/dL (203-362); Troponin I < 0.03 ng/mL (< 0.04)
[2022-03-31 03:43] LABS: Ferritin 97 ng/mL (10-120)
[2022-03-31 03:48] LABS: Folate 15.4 ng/mL (3.0-16.0)
[2022-03-31 03:50] LABS: Vitamin B12 > 1500 pg/mL (250-1100)
[2022-03-31 06:47] VITALS: O2SAT 92
[2022-03-31 07:17] VITALS: BP 171/72; PULSE 54; TEMP 98.1
[2022-03-31] MEDS: Furosemide 40 MG/4 ML VIAL IVP SCH (08:44)
== END 2022-03-31 13:48 | disposition home or self-care (01) ==
LOC: 2ANU 12:17 → EMEROOARM 12:17 → SUATTDRO 17:03 → 2ANU 18:56
PROVIDERS: ADMIT Internal Medicine; ATTEND Internal Medicine